=== PATIENT | female | born 1980 | race Caucasian/White ===

== ENCOUNTER 2020-11-22 11:44 | Outpatient (REF) | payer BC, SELFPAY | END 2020-11-22 11:45 | disposition home or self-care (01) | LOC: HO.HMGCLDS 11:44 | PROVIDERS: PCP Internal Medicine; Visit Provider Nurse Practitioner Family | DX: Z13.89 Encounter for screening for other disorder (principal) ==

== ENCOUNTER → 2020-11-23 08:33 | Outpatient (REF) | payer BC, SELFPAY ==
--- NOTE | 2020-11-23 08:38 | CA_ITS ---
Transthoracic Echocardiogram Patient (Last, First, Middle): Kelsey Bhagat, Gender: Female Date of : 1980 Age: 40 Procedure Date: 11/23/2020 Procedure Type: Transthoracic Echocardiogram Location: OP Height: 165.1 cm Weight: 77.57 kg BSA: 1.85 m2 Heart Rate: bpm BP: 100 / 62 mmHg Cloth Shrinking Machine Operator: TONY Referring MD: Bernie Mensah BUILDING SUPERINTENDENTCristel Symptoms: I21.4 - Non-ST elevation (NSTEMI) myocardial infarction Study Quality: Good ECG Rhythm: Sinus Conclusions: - The left ventricular systolic function is normal. The visually estimated ejection fraction is between 60-65%. - No obvious valvular pathology seen on this study. Findings Left Ventricle Normal left ventricular cavity size. There is normal left ventricular wall thickness. The left ventricular systolic function is normal. The visually estimated ejection fraction is between 60-65%. There is no evidence of regional wall motion abnormalities. Diastolic function is normal for age. Right Ventricle Normal right ventricular cavity size and systolic function. Atria Both atria are normal in size. Aortic Valve There is a normal trileaflet aortic valve. There is no aortic valve stenosis. There is no aortic valve regurgitation. Mitral Valve The mitral valve appears normal. There is trace mitral valve regurgitation. There is no mitral valve stenosis. Pulmonic Valve The pulmonic valve was not well visualized. There is trace pulmonic valve regurgitation. Tricuspid Valve Normal tricuspid valve structure. There is trace tricuspid valve regurgitation. The pulmonary artery systolic pressure is normal. Great Vessels The aortic annulus, sinuses of valsalva, asc aorta, and aortic arch are normal in size. Pericardium/Pleural There is no evidence of pericardial effusion. Prior Study Comparison No prior study available for comparison. Recommendations, Care & Conclusions No obvious valvular pathology seen on this study. Measurements 2D Linear Measurements IVSd: 0.90 0.6-0.9/0.6-1.0 cm LVIDd: 4.48 3.9-5.3/4.2-5.9 cm LVIDd Index: 2.42 2.4-3.2/2.2-3.1 cm/m2 LVIDs: 3.02 2.0-3.6 cm LVPWd: 1.05 0.7-1.1 cm Ao Root: 2.50 2.1-3.5 cm LA Diam: 3.60 2.7-3.8/3.0-4.0 cm LAIDs Index: 1.95 1.5-2.3 cm/m2 LV Mass: 183.10 67-162/88-224 g LV Mass Index: 98.97 43-95/49-115 g/m2 LVOT Diam: 2.00 3.0+(-)1.3 cm 2D Systolic Function EF 4C: 67.00 >55% EF 2C: 63.70 >55% EF BiP: 65.20 >55% Mitral Valve MV Pk E: 0.77 MV PK A: 0.73 MV Decel Time: 158.00 E/A: 1.10 E'Lateral: 10.80 E'Medial: 8.99 E/E' Med: 8.60 E/E' Lat: 7.10 PHT: 46.00 MVA PHT: 4.78 Decel [place]: 4.87 Aortic Valve AoV Pk Scotty: 1.24 AoV Pk Grad: 6.00 LVOT LVOT Pk Scotty: 1.23 LVOT Mn Scotty: 0.77 LVOT VTI: 0.27 LVOT Pk Grad: 6.00 LVOT Mn Grad: 3.00 LVOT Diam: 2.00 LVOT Area: 3.14 Diastolic Function MV Pk E: 0.77 MV Pk A: 0.73 E/A: 1.10 E'Medial: 8.99 E/E' Med: 8.60 E' Laterial: 10.80 E/E' Lat: 7.10 Tricuspid Valve TR Pk Scotty: 2.27 TR Pk Grad: 21.00 RA Press: 3.00 RVSP: 24.00 Great Vessels Aorta Ao Root-2D: 2.50 2.0-3.7 cm Ao Asc: 2.70 2.1-3.4 cm Ao Arch: 2.40 Updated in Other Vendor System with Status of Final Juan Costa MD electronically signed on 11/25/2020 5:36:26 PM with status of Final
[2020-11-23 16:37] LABS: MANUAL DIFF FLAG NO
[2020-11-23 16:39] LABS: Basophils Absolute Auto 0.1 X10*3/uL (0.0-0.2); Basophils Percent Auto 0.6 % (0-2); Eosinophils Percent Auto 0.5 % (0-4); Hematocrit 38.4 % (37-47); Hemoglobin 12.1 g/dl (12.0-16.0); Imm Gran Abs Auto 0.02 X10*3/uL (0.00-0.03); Imm Gran Pct Auto 0.2 % (0.0-0.4); Lymphocytes Absolute Auto 3.8 X10*3/uL (1.2-4.9); Mean Corpuscular HGB Conc 31.5 g/dl (31.0-35.0); Mean Corpuscular Hemoglobin 28.5 pg (27.0-33.0); Mean Corpuscular Volume 90.6 fL (80-98); Mean Platelet Volume 9.9 fL (9.4-12.3); Monocytes Absolute Auto 0.6 X10*3/uL (0.1-1.2); Monocytes Percent Auto 7.3 % (2-11); Neutrophils Absolute Auto 3.9 X10*3/uL (2.0-8.3); Neutrophils Percent Auto 46.4 % (45-73); Platelet Count 476 X10*3/uL (160-400); Red Blood Count 4.24 X10*6/uL (4.20-5.50); Red Cell Distribution Width 13.4 % (11.0-16.0); White Blood Count 8.3 X10*3/uL (4.8-10.8)
[2020-11-23 16:51] LABS: D Dimer < 200 NG/ML
[2020-11-23 17:04] LABS: Anion Gap 12 (12-20); Blood Urea Nitrogen 10 mg/dL (9-16); Calcium 9.4 mg/dL (8.4-10.2); Carbon Dioxide 22 mmol/L (22-29); Chloride 111 mmol/L (96-108); Estimated Glomerular Filt Rate > 60; Glucose Random 78 mg/dL (60-115); Potassium 4.1 mmol/l (3.3-5.1); Sodium 141 mmol/L (135-145)
== END ==
LOC: HO.CARD 08:33
PROVIDERS: Visit Provider Nurse Practitioner Family
DX: I21.4 Non-ST elevation (NSTEMI) myocardial infarction (principal); R55 Syncope and collapse; R42 Dizziness and giddiness; E78.5 Hyperlipidemia, unspecified
CPT/HCPCS: 36415; 80048; 85025; 85379; 93306

== ENCOUNTER → 2020-12-15 13:56 | Outpatient (REF) | payer BC, SELFPAY ==
--- NOTE | 2020-12-15 14:00 | ECG_ITS ---
Hook-up date: 2020-12-15 14:10:00 Duration: 44:21:00 Test Indications: syncope Medications: 47552 QRS complexes 2 Ventricular ectopics which represent <1 % of total QRS comp. 2 Supraventricular ectopics which represent <1 % of total QRS comp. * Paced QRS complexs which represent % of total QRS comp. VENTRICULAR ECTOPY 2 Isolated 0 Bigeminal Cycles 0 Couplets 0 Runs 0 Beats in Runs * Beats LONGEST at * BPM at :: -- * Beats FASTEST at * BPM at :: -- SUPRAVENTRICULAR ECTOPY 2 Isolated 0 Couplets 0 Runs 0 Beats in Runs * Beats LONGEST at * BPM at :: -- * Beats FASTEST at * BPM at :: -- HEART RATES 48 MIN at 04:38:33 2020-12-16 67 AVG 139 MAX at 14:12:11 2020-12-15 LONGEST RR 1.2880 secs at 05:42:39 2020-12-16 S-T LEVELS Channel 1 - 128 mm at 14:10:00 2020-12-15 - 128 mm at 14:10:00 2020-12-15 Channel 2 - 128 mm at 14:10:00 2020-12-15 - 128 mm at 14:10:00 2020-12-15 Channel 3 - 128 mm at 03:32:91 -- - 128 mm at 03:32:91 Basic rhythm Normal sinus rhythm No long pause or profound bradycardia No dangerous dysrhythm periods Patient did not report any symptoms in the diary Referred By: Bernie Mensah Overread By: LAZARO TOM MD
== END ==
LOC: HO.CARD 13:56
PROVIDERS: Visit Provider Nurse Practitioner Family
DX: I21.4 Non-ST elevation (NSTEMI) myocardial infarction (principal); R42 Dizziness and giddiness; R55 Syncope and collapse
CPT/HCPCS: 93225; 93226

== ENCOUNTER → 2021-05-23 09:21 | Outpatient (BNVA) | payer OTHER, SELFPAY | PROVIDERS: PCP Internal Medicine; Visit Provider Internal Medicine Cardiovascular Disease | DX: I25.10 Atherosclerotic heart disease of native coronary artery without angina pectoris (principal); R07.9 Chest pain, unspecified | CPT/HCPCS: 93005 ==

== ENCOUNTER → 2021-06-09 10:45 | Outpatient (REF) | payer OTHER, SELFPAY ==
--- NOTE | 2021-06-09 10:48 | CA_ITS ---
Acquisition Time: 2021-06-09 11:00:56 Total Exercise Time: 00:07:01 Test Indications: Chest Pain Medications: Protocol: JACK Max HR: 171 BPM 96% of Pred: 178 BPM Max BP: 128/062 mmHG Max Work Load: 8.5 METS Exercise stress test with exercise 7 min 1 sec of Buce protocol, with moderate to severe shortness of breath, no chest discomfort, without arrythmia, with normotensive response to exercise ( unable to accurate assess BP at near peak exercise), without EKG changes meeting criteria for ischemia. Echo images obtained by tech at rest and immediately post peak exercise. Definity contrast used. Breathing normalized by 6 minutes of recovery. Test reviewed with Dr Maria. Referred By: Jason Maria Overread By: Jason Maria
== END ==
LOC: HO.CARD 10:45
PROVIDERS: Visit Provider Internal Medicine Cardiovascular Disease
DX: R07.9 Chest pain, unspecified (principal)
CPT/HCPCS: 93350; Q9957

== ENCOUNTER 2021-07-05 07:48 | Outpatient (REF) | payer OTHER, SELFPAY ==
[2021-07-05 08:26] LABS: Prothrombin Time 11.4 SEC (9.9-13.0)
[2021-07-05 08:31] LABS: Hematocrit 30.1 % (37-47); Hemoglobin 8.4 g/dl (12.0-16.0); Mean Corpuscular HGB Conc 27.9 g/dl (31.0-35.0); Mean Corpuscular Hemoglobin 19.7 pg (27.0-33.0); Mean Corpuscular Volume 70.7 fL (80-98); Mean Platelet Volume 8.9 fL (9.4-12.3); Platelet Count 581 X10*3/uL (160-400); Red Blood Count 4.26 X10*6/uL (4.20-5.50); Red Cell Distribution Width 18.3 % (11.0-16.0); White Blood Count 10.1 X10*3/uL (4.8-10.8)
[2021-07-05 08:34] LABS: Anion Gap 10 (12-20); Blood Urea Nitrogen 21 mg/dL (9-16); Calcium 9.5 mg/dL (8.4-10.2); Carbon Dioxide 19 mmol/L (22-29); Chloride 114 mmol/L (96-108); Estimated Glomerular Filt Rate > 60; Glucose Random 98 mg/dL (60-115); Potassium 4.4 mmol/L (3.3-5.1); Sodium 139 mmol/L (135-145)
[2021-07-05 08:41] LABS: HCG Quantitative < 2 mIU/mL
== END 2021-07-05 07:49 | disposition home or self-care (01) ==
LOC: HO.LAB 07:48
PROVIDERS: PCP Internal Medicine; Visit Provider Internal Medicine Cardiovascular Disease
DX: R94.39 Abnormal result of other cardiovascular function study (principal)
CPT/HCPCS: 36415; 80048; 84702; 85027; 85610

== ENCOUNTER 2021-08-24 13:13 | Outpatient (REF) | payer OTHER, SELFPAY ==
[2021-08-24 14:27] LABS: MANUAL DIFF FLAG NO
[2021-08-24 15:03] LABS: Basophils Absolute Auto 0.1 X10*3/uL (0.0-0.2); Basophils Percent Auto 0.7 % (0-2); Eosinophils Absolute Auto 0.1 X10*3/uL (0.0-0.4); Eosinophils Percent Auto 0.7 % (0-4); Hematocrit 29.1 % (37-47); Hemoglobin 8.3 g/dl (12.0-16.0); Imm Gran Abs Auto 0.02 X10*3/uL (0.00-0.03); Imm Gran Pct Auto 0.2 % (0.0-0.4); Lymphocytes Absolute Auto 2.9 X10*3/uL (1.2-4.9); Lymphocytes Percent Auto 31.7 % (20-40); Mean Corpuscular HGB Conc 28.5 g/dl (31.0-35.0); Mean Corpuscular Hemoglobin 19.2 pg (27.0-33.0); Mean Corpuscular Volume 67.4 fL (80-98); Mean Platelet Volume 9.3 fL (9.4-12.3); Monocytes Absolute Auto 0.7 X10*3/uL (0.1-1.2); Monocytes Percent Auto 7.3 % (2-11); Neutrophils Absolute Auto 5.4 X10*3/uL (2.0-8.3); Neutrophils Percent Auto 59.4 % (45-73); Platelet Count 600 X10*3/uL (160-400); Red Blood Count 4.32 X10*6/uL (4.20-5.50); Red Cell Distribution Width 17.2 % (11.0-16.0)
[2021-08-24 15:13] LABS: D Dimer 289 NG/ML
[2021-08-24 15:24] LABS: Anion Gap 13 (12-20); Blood Urea Nitrogen 16 mg/dL (9-16); Calcium 9.6 mg/dL (8.4-10.2); Carbon Dioxide 17 mmol/L (22-29); Chloride 112 mmol/L (96-108); Estimated Glomerular Filt Rate > 60; Glucose Random 94 mg/dL (60-115); Potassium 4.5 mmol/L (3.3-5.1); Sodium 137 mmol/L (135-145)
[2021-08-24 15:31] LABS: B Type Natriuretic Peptide 21 pg/mL (<100)
== END 2021-08-24 13:14 | disposition home or self-care (01) ==
LOC: HO.LAB 13:13
PROVIDERS: PCP Internal Medicine; Visit Provider Nurse Practitioner Family
DX: R06.02 Shortness of breath (principal); I25.10 Atherosclerotic heart disease of native coronary artery without angina pectoris; D64.9 Anemia, unspecified; R79.89 Other specified abnormal findings of blood chemistry; Z98.890 Other specified postprocedural states
CPT/HCPCS: 36415; 80048; 83880; 85025; 85379

== ENCOUNTER 2021-08-25 11:20 | Outpatient (REF) | payer OTHER, SELFPAY ==
--- NOTE | ~2021-08-25 | CT_ITS ---
EXAMINATION: CT ANGIOGRAM OF THE CHEST WITH AND WITHOUT CONTRAST (CT PULMONARY ANGIOGRAM FOR PE) CLINICAL INFORMATION: Reason for Exam R06.02 - Shortness of breath COMPARISON: None TECHNIQUE: Prior to contrast administration, noncontrast localization images were obtained. Subsequently, multidetector volumetric imaging was performed from the thoracic inlet to below the diaphragms following the administration of 65 mL Omnipaque 350 intravenous contrast. No contrast reaction reported Sagittal, coronal, and MIP oblique sagittal reformatted images were obtained on the CT workstation, uploaded to PACS, and reviewed. This CT examination was performed using dose optimization techniques as appropriate, variously including the following: *Automated exposure control *Adjustment of mA and/or kV according to patient size (this includes techniques or standardized protocols for targeted exams where dose is matched to indication/reason for exam; i.e. extremities or head) *Use of iterative reconstruction technique Total exam dose-length product 120 mGy-cm FINDINGS: QUALITY OF STUDY/CONTRAST BOLUS: Satisfactory. PULMONARY ARTERIES: No central or segmental pulmonary emboli. THORACIC AORTA: No aneurysm or dissection. LUNG: There is no pneumothorax, airspace consolidation, groundglass opacities. The central airways are clear. There is no endobronchial lesion or bronchiectasis. PLEURA: No pleural effusion or pneumothorax. MEDIASTINUM: Normal heart size. No pericardial effusion. No hilar or mediastinal lymphadenopathy. No evidence of septal bowing or right heart strain. CHEST WALL/AXILLA: No axillary or internal mammary lymphadenopathy. OSSEOUS STRUCTURES: No acute or suspicious osseous abnormality. UPPER ABDOMEN: Incidental 1.3 cm splenule left upper quadrant. No reflux of contrast into the hepatic veins to suggest elevated right heart pressures. CT/CT angio chest PE protocol IMPRESSION: 1. No pulmonary embolism. No thoracic aortic dissection. 2. Lungs clear. No pneumothorax, infiltrate, or effusion. VTE: negative
[2021-08-25] MEDS: iohexoL 350 MG/ML 100 ML INFUS..BTL 65 ML IV (11:56)
== END 2021-08-25 11:21 | disposition home or self-care (01) ==
LOC: HO.CT 11:20
PROVIDERS: PCP Internal Medicine; Visit Provider Nurse Practitioner Family
DX: R06.02 Shortness of breath (principal); R79.89 Other specified abnormal findings of blood chemistry
CPT/HCPCS: 71275; Q9967

== ENCOUNTER 2021-09-22 12:30 | Outpatient (REF) | payer OTHER, SELFPAY ==
[2021-09-22 13:31] LABS: MANUAL DIFF FLAG NO
[2021-09-22 14:01] LABS: Basophils Percent Auto 0.4 % (0-2); Eosinophils Absolute Auto 0.1 X10*3/uL (0.0-0.4); Eosinophils Percent Auto 0.5 % (0-4); Hemoglobin 8.3 g/dl (12.0-16.0); Imm Gran Abs Auto 0.04 X10*3/uL (0.00-0.03); Imm Gran Pct Auto 0.4 % (0.0-0.4); Lymphocytes Absolute Auto 2.8 X10*3/uL (1.2-4.9); Lymphocytes Percent Auto 25.2 % (20-40); Mean Corpuscular HGB Conc 27.7 g/dl (31.0-35.0); Mean Corpuscular Hemoglobin 18.7 pg (27.0-33.0); Mean Corpuscular Volume 67.6 fL (80.0-98.0); Mean Platelet Volume 9.3 fL (9.4-12.3); Monocytes Absolute Auto 0.6 X10*3/uL (0.1-1.2); Monocytes Percent Auto 5.8 % (2-11); Neutrophils Absolute Auto 7.5 x10*3/uL (2.0-8.3); Neutrophils Percent Auto 67.7 % (45-73); Platelet Count 544 X10*3/uL (160-400); Red Blood Count 4.44 X10*6/uL (4.20-5.50); Red Cell Distribution Width 18.4 % (11.0-16.0)
== END 2021-09-22 12:31 | disposition home or self-care (01) ==
LOC: HO.LAB 12:30
PROVIDERS: PCP Internal Medicine; Visit Provider Internal Medicine Cardiovascular Disease
DX: D64.9 Anemia, unspecified (principal); R06.02 Shortness of breath; I25.10 Atherosclerotic heart disease of native coronary artery without angina pectoris; Z79.899 Other long term (current) drug therapy
CPT/HCPCS: 36415; 85025

== ENCOUNTER 2021-10-12 07:40 | Outpatient (REF) | payer OTHER, SELFPAY | END 2021-10-12 07:41 | disposition home or self-care (01) | LOC: HO.MDS 07:40 | PROVIDERS: PCP Internal Medicine; Visit Provider Internal Medicine | DX: D50.9 Iron deficiency anemia, unspecified (principal) | CPT/HCPCS: 96365; 96366; J1200; J1750; Q0163 ==

== ENCOUNTER 2021-11-24 12:35 | Outpatient (REF) | payer OTHER, SELFPAY ==
[2021-11-24 13:36] LABS: MANUAL DIFF FLAG NO
[2021-11-24 14:14] LABS: Basophils Percent Auto 0.6 % (0-2); Eosinophils Percent Auto 0.3 % (0-4); Hematocrit 39.7 % (37.0-47.0); Hemoglobin 12.4 g/dl (12.0-16.0); Imm Gran Abs Auto 0.01 X10*3/uL (0.00-0.03); Imm Gran Pct Auto 0.1 % (0.0-0.4); Lymphocytes Absolute Auto 2.1 X10*3/uL (1.2-4.9); Lymphocytes Percent Auto 29.3 % (20-40); Mean Corpuscular HGB Conc 31.2 g/dl (31.0-35.0); Mean Corpuscular Hemoglobin 25.5 pg (27.0-33.0); Mean Corpuscular Volume 81.5 fL (80.0-98.0); Mean Platelet Volume 9.6 fL (9.4-12.3); Monocytes Absolute Auto 0.4 X10*3/uL (0.1-1.2); Neutrophils Absolute Auto 4.7 x10*3/uL (2.0-8.3); Neutrophils Percent Auto 64.7 % (45-73); Platelet Count 348 X10*3/uL (160-400); Red Blood Count 4.87 X10*6/uL (4.20-5.50); White Blood Count 7.2 X10*3/uL (4.8-10.8)
[2021-11-24 14:38] LABS: Anion Gap 11 (12-20); Blood Urea Nitrogen 16 mg/dL (9-16); Calcium 9.5 mg/dL (8.4-10.2); Carbon Dioxide 19 mmol/L (22-29); Chloride 115 mmol/L (96-108); Estimated Glomerular Filt Rate > 60; Glucose Random 94 mg/dL (60-115); Potassium 4.5 mmol/L (3.3-5.1); Sodium 140 mmol/L (135-145)
[2021-11-24 14:39] LABS: B Type Natriuretic Peptide 19 pg/mL (<100)
== END 2021-11-24 12:36 | disposition home or self-care (01) ==
LOC: HO.LAB 12:35
PROVIDERS: Nurse Practitioner Family; PCP Internal Medicine; Visit Provider Internal Medicine Cardiovascular Disease
DX: R07.9 Chest pain, unspecified (principal); D64.9 Anemia, unspecified; I25.10 Atherosclerotic heart disease of native coronary artery without angina pectoris
CPT/HCPCS: 36415; 80048; 83880; 85025

== ENCOUNTER 2022-01-11 15:14 | Outpatient (REF) | payer OTHER, SELFPAY ==
[2022-01-11 17:17] LABS: Iron 72 mcg/dL (30-160)
[2022-01-11 17:31] LABS: Percent Iron Saturation 23 % (15-50); Total Iron Binding Capacity 320 mcg/dL (228-428); Unsaturated Iron Binding 248 ug/dL
[2022-01-11 17:38] LABS: Ferritin 54 ng/mL (10-250); HCG Quantitative < 2 mIU/mL
== END 2022-01-11 15:15 | disposition home or self-care (01) ==
LOC: HO.LAB 15:14
PROVIDERS: PCP Internal Medicine; Visit Provider Internal Medicine Cardiovascular Disease
DX: R06.00 Dyspnea, unspecified (principal); R94.39 Abnormal result of other cardiovascular function study; I25.2 Old myocardial infarction; Z98.890 Other specified postprocedural states
CPT/HCPCS: 36415; 82728; 83540; 84702

== ENCOUNTER 2022-04-23 19:38 | Emergency (ER) | payer OTHER, SELFPAY ==
[2022-04-23 19:58] VITALS: BP 116/71; PULSE 82; RESP 18; TEMP 37.2; O2SAT 99; BMI 28.8
--- NOTE | 2022-04-23 20:38 | ED.LOWEXIN ---
HPI - Extremity Injury (Lower) General Chief Complaint: Extremity Injury, Lower Time Seen by Provider: 04/23/22 20:37 Source: patient Mode of arrival: ambulatory History of Present Illness HPI Narrative: patient was running in a [employer] program pole the muscle of the left quad complaining of pain when she walks or flex her thighs no other injuries Related Data Home Medications Medication Instructions Recorded Confirmed polyethylene glycol 3350 17 17 g PO DAILY 11/22/20 11/24/21 gram/dose oral powder topiramate 100 mg tablet 100 mg PO BID 11/22/20 01/11/22 Previous Rx's Medication Instructions Recorded aspirin 81 mg tablet,delayed 81 mg PO DAILY 90 days #90 tabs 05/31/21 release atorvastatin 80 mg tablet 80 mg PO DAILY 90 days #90 tabs 10/13/21 cyclobenzaprine 10 mg tablet 10 mg PO Q8H #20 tabs 04/23/22 ibuprofen 600 mg tablet 600 mg PO Q6H PRN pain #30 tabs 04/23/22 Allergies Allergy/AdvReac Type Severity Reaction Status Date / Time Opioids - Morphine Analogues Allergy Severe ITCHING, Verified 01/11/22 15:32 HIVES. Review of Systems Review of Systems: Yes all other systems are reviewed and are negative PMFSH Past Medical History Medical History Dural venous sinus thrombosis Surgical History Hx of carpal tunnel repair Family History Family History Father No problems noted. Mother HTN (hypertension) Social History Social History Alcohol intake: former Patient Tobacco Use Status: Never used Tobacco Advance Directives: No Advance Directives Information Provided: Yes Physical Exam Vital Signs: Vital Signs: Last Vital Signs Temp 98.9 F 04/23/22 19:58 Pulse 82 04/23/22 19:58 Resp 18 04/23/22 19:58 BP 116/71 04/23/22 19:58 Pulse Ox 99 04/23/22 19:58 O2 Del Method 04/23/22 19:58 BMI result Body Mass Index 28.8 Const: General: healthy appearing and comfortable HEENT: Head: Yes normal to inspection Ears: hearing grossly normal bilaterally Neck: Neck: Yes full ROM and No midline deformity Resp: Effort & Inspection: normal respiratory effort Auscultation: clear to auscultation bilaterally Cardio: Rate: regular rate Rhythm: regular rhythm Heart sounds: S1 normal heart sound present and S2 normal heart sound present GI: Inspection: Yes normal to inspection Palpation (GI): Soft to palpation and nontender : General: Yes no CVA tenderness Back/Spine/Pelvis: Back: no CVA tenderness Extrem: Upper/lower leg/hip images: 1. Diffuse tenderness in left quads no swelling no muscle gap no ecchymosis able to flex thigh with pain able to stand up no neuro deficit MDM - Extremity Injury (Lower) MDM Narrative Medical decision making narrative: Patient was running to [employer] program suddenly pulled her left quads complaining of increased pain in the left front of the thigh no deformity able to ambulate but with pain no other injuries no fall Discharge Plan Discharge Clinical Impression: Quadriceps muscle strain Patient Disposition: Home, Self-Care Instructions: Muscle Strain (ED) Additional Instructions: Apply ice Pain medication and muscle relaxants advised Prescriptions: New cyclobenzaprine 10 mg tablet 10 mg PO Q8H Qty: 20 0RF ibuprofen 600 mg tablet 600 mg PO Q6H PRN (Reason: pain) Qty: 30 0RF No Action aspirin 81 mg tablet,delayed release (DR/EC) 81 mg PO DAILY 90 Days Qty: 90 1RF atorvastatin 80 mg tablet 80 mg PO DAILY 90 Days Qty: 90 3RF topiramate 100 mg tablet 100 mg PO BID polyethylene glycol 3350 17 gram/dose powder 17 g PO DAILY Stand Alone Forms: Work/School Release Interventions: ED Discharge Assessment Last Done: 04/23/22 22:58 Discharge Date/Time: 04/23/22 22:59
[2022-04-23] MEDS: Cyclobenzaprine HCl 10 MG TABLET PO (20:55)
[2022-04-23] MEDS: Ketorolac Tromethamine 60 MG/2 ML VIAL IM (20:56)
[2022-04-23] MEDS: oxyCODONE HCl Immed Release 5 MG TABLET 10 MG PO (22:30)
== END 2022-04-23 22:59 | disposition home or self-care (01) ==
PROVIDERS: Emergency Provider Internal Medicine
DX: S76.112A Strain of left quadriceps muscle, fascia and tendon, initial encounter (principal); M79.605 Pain in left leg; X58.XXXA Exposure to other specified factors, initial encounter; Y93.9 Activity, unspecified; Y92.9 Unspecified place or not applicable; Y99.9 Unspecified external cause status; Z79.899 Other long term (current) drug therapy; Z79.82 Long term (current) use of aspirin; Z87.891 Personal history of nicotine dependence
CPT/HCPCS: 96372; 99283; 99284; J1885

== ENCOUNTER 2022-07-14 21:21 | Emergency (ER) | payer OTHER, SELFPAY ==
[2022-07-14 21:23] VITALS: BP 147/77; PULSE 78; RESP 18; TEMP 35.6; O2SAT 100; BMI 29.6
--- NOTE | 2022-07-14 21:23 | ECG_ITS ---
Test Reason : CHEST PAIN Blood Pressure : / mmHG Vent. Rate : 061 BPM Atrial Rate : 061 BPM P-R Int : 136 ms QRS Dur : 092 ms QT Int : 402 ms P-R-T Axes : 050 019 039 degrees QTc Int : 404 ms Normal sinus rhythm Normal ECG No previous ECGs available Referred By: Generic ED Physician Electronically Signed By:EDWIN ALLEN
[2022-07-14 21:41] LABS: MANUAL DIFF FLAG NO
[2022-07-14 21:43] LABS: Basophils Percent Auto 0.5 % (0-2); Eosinophils Absolute Auto 0.1 X10*3/uL (0.0-0.4); Eosinophils Percent Auto 0.9 % (0-4); Hematocrit 37.8 % (37.0-47.0); Hemoglobin 12.5 g/dl (12.0-16.0); Imm Gran Abs Auto 0.01 X10*3/uL (0.00-0.03); Imm Gran Pct Auto 0.1 % (0.0-0.4); Lymphocytes Absolute Auto 3.4 X10*3/uL (1.2-4.9); Lymphocytes Percent Auto 41.1 % (20-40); Mean Corpuscular HGB Conc 33.1 g/dl (31.0-35.0); Mean Corpuscular Hemoglobin 29.1 pg (27.0-33.0); Mean Corpuscular Volume 87.9 fL (80.0-98.0); Mean Platelet Volume 8.9 fL (9.4-12.3); Monocytes Absolute Auto 0.5 X10*3/uL (0.1-1.2); Monocytes Percent Auto 6.6 % (2-11); Neutrophils Absolute Auto 4.2 x10*3/uL (2.0-8.3); Neutrophils Percent Auto 50.8 % (45-73); Platelet Count 390 X10*3/uL (160-400); Red Cell Distribution Width 13.1 % (11.0-16.0); White Blood Count 8.2 X10*3/uL (4.8-10.8)
[2022-07-14 22:03] LABS: Alanine Aminotransferase 22 U/L (0-31); Albumin Level 4.3 g/dL (3.5-5.0); Alkaline Phosphatase 58 U/L (39-117); Anion Gap 13 (12-20); Aspartate Amino Transferase 24 U/L (5-31); Bilirubin Total 0.5 mg/dL (0.0-1.0); Blood Urea Nitrogen 12 mg/dL (9-16); Calcium 8.9 mg/dL (8.4-10.2); Carbon Dioxide 20 mmol/L (22-29); Chloride 112 mmol/L (96-108); Creatinine Clr Calc Pharmacy 92.8; Estimated Glomerular Filt Rate > 60; Glucose Random 105 mg/dL (60-115); Potassium 3.6 mmol/L (3.3-5.1); Sodium 141 mmol/L (135-145); Total Protein 7.6 g/dL (6.5-8.0)
[2022-07-14 22:07] LABS: Troponin-I High Sensitivity < 3.5 ng/L (<3.5-17.0)
== END 2022-07-15 01:26 | disposition left against medical advice (07) ==
PROVIDERS: Emergency Provider Emergency Medicine; PCP Internal Medicine
DX: R07.89 Other chest pain (principal); Z79.899 Other long term (current) drug therapy
CPT/HCPCS: 36415; 80053; 84484; 85025; 93005; 99283

== ENCOUNTER → 2023-01-24 13:06 | Outpatient (BNVA) | payer OTHER, SELFPAY | PROVIDERS: PCP Internal Medicine; Referring Provider Internal Medicine; Visit Provider Internal Medicine Cardiovascular Disease | DX: I25.10 Atherosclerotic heart disease of native coronary artery without angina pectoris (principal); E78.5 Hyperlipidemia, unspecified | CPT/HCPCS: 93005 ==

== ENCOUNTER 2023-08-13 11:40 | Emergency (ER) | payer BC, SELFPAY ==
[2023-08-13] VITALS (10 sets, daily range): BP systolic 103–129; BP diastolic 60–76; PULSE 56–69; RESP 16–18; TEMP 36.6; O2SAT 99–100; BMI 30.3
--- NOTE | 2023-08-13 13:02 | ED_ITS ---
HPI - General Adult General Chief complaint: Dizziness Stated complaint: dizzy blood in eye Time Seen by Provider: 08/13/23 16:23 Source: patient Mode of arrival: ambulatory Limitations: no limitations History of Present Illness HPI narrative: Patient 43 years old with history of vertigo in the past comes in for sudden onset of dizziness started 3 days ago especially on movements of the head with nausea and vomiting vomited only once noticed subconjunctival hemorrhage in the right eye also does have history of migraine headache is much better at this time patient was little off balance but now she is much better no headache at this time no tremors no focal deficit no tinnitus Related Data Home Medications Medication Instructions Recorded Confirmed topiramate 100 mg tablet 100 mg PO BID 11/22/20 01/24/23 Previous Rx's Medication Instructions Recorded aspirin 81 mg tablet,delayed 81 mg PO DAILY 90 days #90 tabs 06/12/22 release atorvastatin 80 mg tablet 80 mg PO DAILY #90 tabs 10/10/22 meclizine 25 mg tablet 25 mg PO TID PRN dizziness #20 tabs 08/13/23 Allergies Allergy/AdvReac Type Severity Reaction Status Date / Time Opioids - Morphine Analogues Allergy Severe ITCHING, Verified 01/24/23 13:51 HIVES. Review of Systems 2 Review of Systems: Yes all other systems are reviewed and are negative PMFSH Past Medical History Medical History HLD (hyperlipidemia) Dural venous sinus thrombosis NSTEMI (non-ST elevated myocardial infarction) Surgical History Hx of cardiac cath Hx of carpal tunnel repair Family History Family History Father No problems noted. Mother HTN (hypertension) Social History Social History Alcohol intake: never Patient Tobacco Use Status: Never used Tobacco Smoked in Last 30 Days: No Use of substances other than those prescribed or required for medical reasons: No Advance Directives: No Physical Exam ED Vital Signs: Vital Signs - 24 hr 08/13/23 13:02 08/13/23 16:32 08/13/23 16:41 Temperature 97.9 F Pulse Rate 66 63 56 Respiratory Rate 16 16 Blood Pressure 129/76 103/60 120/62 Pulse Oximetry 100 99 Oxygen Delivery Method Room Air Room Air 08/13/23 16:48 08/13/23 16:49 08/13/23 16:51 Temperature 98 F Pulse Rate 62 69 62 Respiratory Rate 18 Blood Pressure 123/67 126/75 123/67 Pulse Oximetry 100 Oxygen Delivery Method Room Air 08/13/23 16:52 08/13/23 16:53 08/13/23 16:54 Temperature Pulse Rate 56 62 69 Respiratory Rate Blood Pressure 120/62 123/67 126/75 Pulse Oximetry Oxygen Delivery Method 08/13/23 18:46 Temperature Pulse Rate 58 Respiratory Rate 17 Blood Pressure 114/70 Pulse Oximetry 100 Oxygen Delivery Method Room Air BMI result Body Mass Index 30.3 Appearance: Alert. Oriented X3. No acute distress. Eyes: PERRLA, No Nystagmus mild with some conjunctival hemorrhage right eye cornea normal anterior chamber normal ENT: Pharynx normal. Oral Mucosa moist Neck: Normal inspection. Neck supple. CVS: Normal heart rate and rhythm. Pulses normal. Respiratory: No respiratory distress. Equal air entry bilateral, no wheezing/rales/rhonchi Abdomen: Soft and nontender. Bowel sounds are present, no mass palpable, no CVA tenderness Skin: Skin warm and dry. Normal skin color. Normal skin turgor. Extremities: No lower extremity edema. No calf tenderness Neuro: Oriented X 3. No motor deficit. No sensory deficit.No cerebellar signs , cranial nerves II-XII intact normal gait Course Course Course Narrative: RME performed by Carmencita Granados PA-C. Patient is a 43 year old assigned female at presenting to the emergency department with right eye irritation, dizziness, and nausea. Labs and swabs ordered. Patient placed back in the waiting room pending room availability and results. Medications Administered Discontinued Medications Generic Name Dose Route Start Last Admin Trade Name Freq PRN Reason Stop Dose Admin Meclizine HCl 50 mg 08/13/23 16:54 08/13/23 17:41 Meclizine Hcl 25 Mg Tablet PO 08/13/23 16:55 50 mg ONCE ONE Administration Medical Decision Making Differential Diagnosis Differential Diagnoses: The differential diagnosis associated with the presentation includes Benign positional vertigo/dizziness/near syncope/cardiac arrhythmia Lab Data MDM Lab Attestation statement: I reviewed the patient's lab results. 08/13/23 15:47 08/13/23 15:47 Labs: Lab Results 08/13/23 08/13/23 Range/Units 15:47 16:50 WBC 6.9 (4.8-10.8) X10*3/uL RBC 4.77 (4.20-5.50) X10*6/uL Hgb 13.5 (12.0-16.0) g/dl Hct 42.3 (37.0-47.0) % MCV 88.7 (80.0-98.0) fL MCH 28.3 (27.0-33.0) pg MCHC 31.9 (31.0-35.0) g/dl RDW 13.1 (11.0-16.0) % Plt Count 213 D (160-400) X10*3/uL MPV 10.2 (9.4-12.3) fL Immature Gran % (Auto) 0.1 (0.0-0.4) % Neut % (Auto) 49.0 (45-73) % Lymph % (Auto) 44.1 H (20-40) % [place] % (Auto) 5.2 (2-11) % Eos % (Auto) 1.0 (0-4) % Baso % (Auto) 0.6 (0-2) % Lymph # (Auto) 3.0 (1.2-4.9) X10*3/uL [place] # (Auto) 0.4 (0.1-1.2) X10*3/uL Eos # (Auto) 0.1 (0.0-0.4) X10*3/uL Baso # (Auto) 0.0 (0.0-0.2) X10*3/uL Abs Immat Gran (auto) 0.01 (0.00-0.03) X10*3/uL Absolute Neuts (auto) 3.4 (2.0-8.3) x10*3/uL Absolute Nucleated RBC 0.000 (0.0-0.012) X10*3/uL Nucleated RBC % (auto) 0.0 (0.0-0.2) /100WBC PT 11.5 (11.1-13.3) SEC INR 0.9 (0.9-1.1) APTT 26.8 (26.0-36.4) SEC Sodium 143 (135-145) mmol/L Potassium 3.9 (3.3-5.1) mmol/L Chloride 114 H (96-108) mmol/L Carbon Dioxide 18 L (22-29) mmol/L Anion Gap 15 (12-20) BUN 11 (9-16) mg/dL Creatinine 0.74 (0.5-1.4) mg/dL Estim Creat Clear Calc 102.9 Estimated GFR > 60 Random Glucose 84 (60-115) mg/dL Calcium 10.0 D (8.4-10.2) mg/dL Magnesium 2.5 (1.6-2.6) mg/dL Total Bilirubin 0.3 (0.0-1.0) mg/dL AST 27 (5-31) U/L ALT 15 (0-31) U/L Alkaline Phosphatase 79 (39-117) U/L Troponin I High Sens < 2.7 (<3.5-17.0) ng/L Total Protein 8.1 H (6.5-8.0) g/dL Albumin 4.3 (3.5-5.0) g/dL Urine Color Yellow Urine Appearance Cloudy Urine pH 7.5 (5.0-9.0) Ur Specific [place] 1.015 (1.005-1.025) Urine Protein Negative (Neg-Trace) mg/dL Urine Glucose (UA) Negative (Negative) mg/dL Urine Ketones Negative (Negative) mg/dL Urine Blood Negative (Negative) Urine Nitrite Negative (Negative) Ur Leukocyte Esterase Negative (Negative) Influenza Type A (PCR) NEGATIVE (Negative) Influenza Type B (PCR) NEGATIVE (Negative) RSV RNA Qual (PCR) NEGATIVE (Negative) SARS-CoV-2 RNA (RT-PCR) NEGATIVE (Negative) Independent Interpretation I performed an independent interpretation of an: EKG Interpretation: Normal sinus rhythm heart rate 62 beats per minute LVH number interval normal axis no acute ST with no acute ischemia Discharge Plan Discharge Clinical Impression: Benign paroxysmal positional vertigo Patient Disposition: Home, Self-Care Instructions: Benign Paroxysmal Positional Vertigo (ED) Additional Instructions: Take meclizine 1 tablet every 8 hours as needed for severe dizziness Follow-up with PCP if not better Care and cautions as advised Prescriptions: New meclizine 25 mg tablet 25 mg PO TID PRN (Reason: dizziness) Qty: 20 0RF No Action aspirin 81 mg tablet,delayed release (DR/EC) 81 mg PO DAILY 90 Days Qty: 90 3RF atorvastatin 80 mg tablet 80 mg PO DAILY Qty: 90 3RF topiramate 100 mg tablet 100 mg PO BID Interventions: ED Discharge Assessment Last Done: 08/13/23 18:46 Discharge Date/Time: 08/13/23 18:47
[2023-08-13 16:15] LABS: Alanine Aminotransferase 15 U/L (0-31); Albumin Level 4.3 g/dL (3.5-5.0); Alkaline Phosphatase 79 U/L (39-117); Anion Gap 15 (12-20); Aspartate Amino Transferase 27 U/L (5-31); Bilirubin Total 0.3 mg/dL (0.0-1.0); Blood Urea Nitrogen 11 mg/dL (9-16); Carbon Dioxide 18 mmol/L (22-29); Chloride 114 mmol/L (96-108); Creatinine Clr Calc Pharmacy 102.9; Estimated Glomerular Filt Rate > 60; Glucose Random 84 mg/dL (60-115); Magnesium 2.5 mg/dL (1.6-2.6); Potassium 3.9 mmol/L (3.3-5.1); Sodium 143 mmol/L (135-145); Total Protein 8.1 g/dL (6.5-8.0)
== END 2023-08-13 18:47 | disposition home or self-care (01) ==
PROVIDERS: Physician Assistant Medical; Emergency Provider Internal Medicine; PCP Internal Medicine
DX: H81.11 Benign paroxysmal vertigo, right ear (principal); R11.2 Nausea with vomiting, unspecified; R94.31 Abnormal electrocardiogram [ECG] [EKG]; Z20.822 Contact with and (suspected) exposure to COVID-19; Z11.52 Encounter for screening for COVID-19; Z79.899 Other long term (current) drug therapy
CPT/HCPCS: 0241U; 80053; 81003; 83735; 84484; 85025; 85610; 85730; 93005; 99283; 99285

== ENCOUNTER 2024-01-21 13:57 | Outpatient (AMB) | payer BC, SELFPAY ==
--- NOTE | 2024-01-21 14:00 | MHC.OFFVIS ---
Intake Vital Signs 01/21/24 14:01 Height 5 ft 5 in Weight 185 lb 10.067 oz BMI 30.9 BP 114/64 Blood Pressure Location Lt brachial Position Sitting Pulse 62 Pulse Source Pulse Oximeter Intake Visit Reasons: 1 year follow up Intake Note: pt its here for a 1 yr f/up/ pt states that she is doing fine. Supervisor Webbing Required: No Accompanied by: Significant Other Allergies Opioids - Morphine Analogues Allergy (Severe, Verified 01/24/23 13:51) ITCHING, HIVES. Medication List - Last Reconciled 01/21/24 by Jason Maria MD aspirin 81 mg PO DAILY 90 days famotidine 40 mg PO DAILY meclizine 25 mg PO TID PRN rosuvastatin 40 mg PO DAILY topiramate 100 mg PO BID venlafaxine ER mg PO HPI HPI Comments History of Present Illness Details Background: She was seen at [facility] when she presented with transient inferior ST elevations with burning chest discomfort. She was taken for cardiac catheterization which showed haziness in mid to distal left circumflex artery. This was imaged with the OCT showing clot in the vessel without clear evidence of dissection or plaque rupture. She was treated medically with heparin drip aspirin and Brilinta. She again had some sharp left-sided chest discomfort at home as well as a dull ache in the left side of her chest. She was admitted to [facility] and had a CT chest to rule out pulmonary embolism. She was discharged and came back for routine follow-up which was setup before. She has a background of asthma and has been experiencing more shortness of breath with exertion. She also gets dyspnea at rest. 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 She was sent for stress echo. She achieved 10.4 metabolic equivalents on treadmill without any EKG changes or chest discomfort. Stress echo did not show any wall motion abnormalities and showed normal augmentation of LV function. She called us in between that she was and her medications including metoprolol and Plavix were discontinued. Unfortunately she had a miscarriage in 11/2020. She has background of dural thrombosis but that was in the setting of control medications. She came back for follow-up and was complaining of shortness of breath and chest tightness. We decided to do an exercise stress test on her. She was also sent for some blood workup. She was able to exercise for 8.5 metabolic equivalents and stopped due to moderate to severe shortness of breath and no chest discomfort. Stress echo images were did not show any regional wall motion abnormalities. Her blood workup showed anemia and she was referred to hematology for further workup. It appears she was given ferrous sulfate but she did not tolerate it. She was seen by Hematology and then received IV iron. She is returning now for follow-up. She continued to have chest discomfort despite treatment of anemia. After discussion she was taken back for cardiac catheterization. This showed healed area of plaque erosion/dissection in the left circumflex without any significant obstructive disease. On follow-up today she is doing well. She has no chest discomfort shortness breath appeared occasionally she feels some palpitations. Taking medications regularly. 01/21/24: She returns for follow-up. She is denying any chest pain or shortness of breath. She has hemorrhoids and will be undergoing endoscopy at [facility] in March 2024. She is on baby aspirin. She was changed to rosuvastatin by her primary care physician. She is saying that she is taking aspirin and rosuvastatin currently. [facility] Medical History HLD (hyperlipidemia) Dural venous sinus thrombosis NSTEMI (non-ST elevated myocardial infarction) Surgical History Hx of cardiac cath Hx of carpal tunnel repair Family History Father No problems noted. Mother HTN (hypertension) Social History Alcohol intake: never Patient Tobacco Use Status: Never used Tobacco Review of Systems Const Denies chills, Denies fatigue, Denies fever(s), Denies frequent falls, Denies weakness, Denies weight gain and Denies weight loss ENT Denies dizziness Card Denies chest pain, Denies leg edema, Denies lightheadedness, Denies palpitations, Denies dyspnea and Denies dyspnea on exertion Resp Denies cough, Denies dyspnea and Denies dyspnea on exertion GI Denies hematochezia Musc Denies abnormal gait, Denies muscle weakness, Denies numbness, Denies radiating pain into limb and Denies tingling Neuro Denies abnormal gait, Denies dizziness, Denies frequent falls, Denies numbness, Denies tingling and Denies weakness Endo Denies fatigue and Denies palpitations Physical Exam Vital Signs: Last Vital Signs Pulse 62 01/21/24 14:01 BP 114/64 01/21/24 14:01 BMI result Body Mass Index 30.9 GENERAL APPEARANCE: in no acute distress, pleasant. NECK: no carotid bruit, no jugular venous distention. SKIN: no suspicious lesions, warm and dry. HEART: no murmurs, regular rate and rhythm. LUNGS: clear to auscultation bilaterally. ABDOMEN: soft, nontender. EXTREMITIES: no edema. PERIPHERAL PULSES: equal. NEUROLOGIC: No gross deficits, AAO X 3 Assessment & Plan Assessment & Plan (1) HLD (hyperlipidemia): Comment: Stable Code(s): E78.5 - Hyperlipidemia, unspecified Qualifiers: Hyperlipidemia type: unspecified Qualified Code(s): E78.5 - Hyperlipidemia, unspecified (2) Coronary artery disease: Code(s): I25.10 - Atherosclerotic heart disease of [place] coronary artery without angina pectoris Qualifiers: Coronary Disease-Associated Artery/Lesion type: [place] artery [place] vs. transplanted heart: [place] heart Associated angina: without angina Qualified Code(s): I25.10 - Atherosclerotic heart disease of [place] coronary artery without angina pectoris Plan [age] year female who is here for follow-up. She had transient ST elevations and was taken for cardiac catheterization in the past which showed thrombus in the left circumflex artery with differential of plaque erosion versus dissection. We could not image the vessel well and given the fact that there was good flow through the vessel we decided to medically treat the patient. She did well with this approach. She had repeat angiography few years later which showed no significant plaque or stenosis in the coronary arteries. She has done well clinically also. She has rectal bleeding and she will need endoscopy. She is intermediate risk for perioperative complications. She will stay on aspirin lifelong. Thank you for allowing me to participate in the care of your patient. Please feel free to contact me if you have any questions. Coding Level of Care Code Est Pt Level 4 (68300) Diagnoses Hyperlipidemia, unspecified hyperlipidemia type E78.5 Hyperlipidemia type: unspecified Coronary artery disease involving [place] coronary artery of [place] heart without angina pectoris I25.10 Coronary Disease-Associated Artery/Lesion type: [place] artery [place] vs. transplanted heart: [place] heart Associated angina: without angina
[2024-01-21 14:01] VITALS: BP 114/64; PULSE 62; BMI 30.9
== END 2024-01-21 14:36 | disposition home or self-care (01) ==
PROVIDERS: Visit Provider Internal Medicine Cardiovascular Disease
DX: E78.5 Hyperlipidemia, unspecified (principal); I25.10 Atherosclerotic heart disease of native coronary artery without angina pectoris
CPT/HCPCS: 99214

== ENCOUNTER → 2024-01-21 13:57 | Outpatient (BNVA) | payer OTHER, SELFPAY | PROVIDERS: Visit Provider Internal Medicine Cardiovascular Disease ==

== ENCOUNTER 2024-01-29 18:04 | Emergency (ER) | payer OTHER, SELFPAY ==
[2024-01-29 18:08] VITALS: BP 125/89; PULSE 108; O2SAT 95
[2024-01-29 18:27] VITALS: BP 139/85; PULSE 110; RESP 16; TEMP 36.6; O2SAT 100; BMI 25.3
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
[2024-01-29] MEDS: Diphth,Pertus(ACell),Tet Adult 0.5 ML SYRINGE IM (19:25)
[2024-01-29 19:47] VITALS: BP 130/80; PULSE 100; RESP 18; TEMP 36.7; O2SAT 100
== END 2024-01-29 19:48 | disposition home or self-care (01) ==
PROVIDERS: Emergency Provider Emergency Medicine Emergency Medical Services; PCP Internal Medicine
DX: S61.051A Open bite of right thumb without damage to nail, initial encounter (principal); S50.811A Abrasion of right forearm, initial encounter; M79.641 Pain in right hand; M79.631 Pain in right forearm; Y04.1XXA Assault by human bite, initial encounter; Y93.9 Activity, unspecified; Y92.9 Unspecified place or not applicable; Y99.8 Other external cause status; Z23 Encounter for immunization
CPT/HCPCS: 90471; 90715; 99282; 99284

== ENCOUNTER 2024-05-06 16:57 | Emergency (ER) | payer OTHER, BC, SELFPAY ==
--- NOTE | ~2024-05-06 | CT_ITS ---
CT HEAD WITHOUT IV CONTRAST CT CERVICAL SPINE WITHOUT IV CONTRAST CT MAXILLOFACIAL WITHOUT IV CONTRAST INDICATION: Head trauma COMPARISON: None TECHNIQUE: Multidetector CT acquisitions of the head, maxillofacial region, and cervical spine were obtained without IV contrast. Multiplanar reformats were acquired and utilized for image interpretation. DLP: 645, 408, 321 mGy-cm FINDINGS: HEAD: There is no intracranial hemorrhage or extra-axial fluid collection. The ventricles are unremarkable without hydrocephalus. No midline shift or mass effect. Parker to white matter differentiation is diffusely maintained without evidence of an evolved acute territorial infarct. The basilar cisterns are preserved. Subcortical and periventricular white matter hypoattenuation is suggestive of [] small vessel ischemic disease. No soft tissue or osseous abnormality. The mastoid air cells and paranasal sinuses are well-aerated. MAXILLOFACIAL: The mandible, maxilla, pterygoid plates, nasal bones, zygomatic arches, paranasal sinus sherwood, and bony orbits are intact. No acute osseous abnormality within the maxillofacial region. The paranasal sinuses and mastoid air cells remain well-aerated. The globes and extra-ocular musculature is intact. No significant soft tissue findings. CERVICAL SPINE: There is anatomic alignment of the vertebral bodies and posterior elements. There is no acute fracture and there is no acute subluxation. The craniocervical and atlantoaxial articulations are normal. There is no prevertebral soft tissue swelling. No significant soft tissue abnormality within the neck. The visualized lung apices are clear. CT/CT cervical spine wo IV con IMPRESSION: 1. No acute intracranial abnormality. 2. No acute osseous abnormality within the cervical spine. 3. No acute osseous abnormality within the maxillofacial region.
--- NOTE | ~2024-05-06 | CT_ITS ---
CT HEAD WITHOUT IV CONTRAST CT CERVICAL SPINE WITHOUT IV CONTRAST CT MAXILLOFACIAL WITHOUT IV CONTRAST INDICATION: Head trauma COMPARISON: None TECHNIQUE: Multidetector CT acquisitions of the head, maxillofacial region, and cervical spine were obtained without IV contrast. Multiplanar reformats were acquired and utilized for image interpretation. DLP: 645, 408, 321 mGy-cm FINDINGS: HEAD: There is no intracranial hemorrhage or extra-axial fluid collection. The ventricles are unremarkable without hydrocephalus. No midline shift or mass effect. Parker to white matter differentiation is diffusely maintained without evidence of an evolved acute territorial infarct. The basilar cisterns are preserved. Subcortical and periventricular white matter hypoattenuation is suggestive of [] small vessel ischemic disease. No soft tissue or osseous abnormality. The mastoid air cells and paranasal sinuses are well-aerated. MAXILLOFACIAL: The mandible, maxilla, pterygoid plates, nasal bones, zygomatic arches, paranasal sinus sherwood, and bony orbits are intact. No acute osseous abnormality within the maxillofacial region. The paranasal sinuses and mastoid air cells remain well-aerated. The globes and extra-ocular musculature is intact. No significant soft tissue findings. CERVICAL SPINE: There is anatomic alignment of the vertebral bodies and posterior elements. There is no acute fracture and there is no acute subluxation. The craniocervical and atlantoaxial articulations are normal. There is no prevertebral soft tissue swelling. No significant soft tissue abnormality within the neck. The visualized lung apices are clear. CT/CT facial bones wo IV con IMPRESSION: 1. No acute intracranial abnormality. 2. No acute osseous abnormality within the cervical spine. 3. No acute osseous abnormality within the maxillofacial region.
--- NOTE | ~2024-05-06 | CT_ITS ---
CT HEAD WITHOUT IV CONTRAST CT CERVICAL SPINE WITHOUT IV CONTRAST CT MAXILLOFACIAL WITHOUT IV CONTRAST INDICATION: Head trauma COMPARISON: None TECHNIQUE: Multidetector CT acquisitions of the head, maxillofacial region, and cervical spine were obtained without IV contrast. Multiplanar reformats were acquired and utilized for image interpretation. DLP: 645, 408, 321 mGy-cm FINDINGS: HEAD: There is no intracranial hemorrhage or extra-axial fluid collection. The ventricles are unremarkable without hydrocephalus. No midline shift or mass effect. Parker to white matter differentiation is diffusely maintained without evidence of an evolved acute territorial infarct. The basilar cisterns are preserved. Subcortical and periventricular white matter hypoattenuation is suggestive of [] small vessel ischemic disease. No soft tissue or osseous abnormality. The mastoid air cells and paranasal sinuses are well-aerated. MAXILLOFACIAL: The mandible, maxilla, pterygoid plates, nasal bones, zygomatic arches, paranasal sinus sherwood, and bony orbits are intact. No acute osseous abnormality within the maxillofacial region. The paranasal sinuses and mastoid air cells remain well-aerated. The globes and extra-ocular musculature is intact. No significant soft tissue findings. CERVICAL SPINE: There is anatomic alignment of the vertebral bodies and posterior elements. There is no acute fracture and there is no acute subluxation. The craniocervical and atlantoaxial articulations are normal. There is no prevertebral soft tissue swelling. No significant soft tissue abnormality within the neck. The visualized lung apices are clear. CT/CT head/brain wo IV con IMPRESSION: 1. No acute intracranial abnormality. 2. No acute osseous abnormality within the cervical spine. 3. No acute osseous abnormality within the maxillofacial region.
[2024-05-06 17:02] VITALS: BP 126/77; PULSE 80; O2SAT 100
[2024-05-06 17:52] VITALS: BP 110/72; PULSE 76; RESP 18; TEMP 36.5; O2SAT 99; BMI 31.5
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
[2024-05-06 18:32] LABS: UPreg QC Valid YES; Urine Pregnancy NEGATIVE (NEGATIVE)
[2024-05-06 19:57] VITALS: BP 119/71; PULSE 67; RESP 18; TEMP 36.4; O2SAT 100
[2024-05-06 20:00] VITALS: BP 119/71; PULSE 67; RESP 18; TEMP 36.4; O2SAT 100
== END 2024-05-06 20:05 | disposition home or self-care (01) ==
PROVIDERS: Registered Nurse Emergency; Emergency Provider Internal Medicine; PCP Internal Medicine
DX: S09.90XA Unspecified injury of head, initial encounter (principal); W50.0XXA Accidental hit or strike by another person, initial encounter; Y93.89 Activity, other specified; Y92.9 Unspecified place or not applicable; Y99.0 Civilian activity done for income or pay; R51.9 Headache, unspecified; M54.2 Cervicalgia
CPT/HCPCS: 70450; 70486; 72125; 81025; 99283; 99284

== ENCOUNTER 2024-09-24 21:46 | Emergency (ER) | payer BC, SELFPAY ==
--- NOTE | 2024-09-24 | ECG_ITS ---
Test Reason : CP Blood Pressure : / mmHG Vent. Rate : 096 BPM Atrial Rate : 096 BPM P-R Int : 142 ms QRS Dur : 078 ms QT Int : 342 ms P-R-T Axes : 069 042 028 degrees QTc Int : 432 ms Normal sinus rhythm Possible Left atrial enlargement Borderline ECG When compared with ECG of 13-AUG-2023 13:12, Vent. rate has increased BY 34 BPM Referred By: Generic ED Physician Electronically Signed By:LAZARO TOM MD
[2024-09-24 21:51] VITALS: BP 123/74; BP 130/91; PULSE 90; PULSE 93; RESP 20; TEMP 36.6; O2SAT 98; BMI 26.6
--- NOTE | 2024-09-24 22:02 | PC.NURSE ---
pt biba from work, pt a&ox4, pt noted to be having PVCs on tele 89-. vss. pt reports 5/10 chest pain with pressure starting 30 mins ago radiating down L arm. pt reports history of IA/CVA, and that current pain feel 'similar' to last IA. ems administered 4 baby aspirin. pt reports pain 2/10 at this time. ekg obtained at this time. iv attempt x2 2nd RN at bedside to attempt. labs obtained.
[2024-09-24 22:05] LABS: MANUAL DIFF FLAG NO
[2024-09-24 22:06] LABS: Basophils Percent Auto 0.2 % (0-2); Eosinophils Percent Auto 0.1 % (0-4); Hematocrit 38.6 % (37.0-47.0); Hemoglobin 13.1 g/dl (12.0-16.0); Imm Gran Abs Auto 0.02 X10*3/uL (0.00-0.03); Imm Gran Pct Auto 0.2 % (0.0-0.4); Lymphocytes Absolute Auto 2.2 X10*3/uL (1.2-4.9); Lymphocytes Percent Auto 24.4 % (20-40); Mean Corpuscular HGB Conc 33.9 g/dl (31.0-35.0); Mean Corpuscular Hemoglobin 28.7 pg (27.0-33.0); Mean Corpuscular Volume 84.6 fL (80.0-98.0); Mean Platelet Volume 10.1 fL (9.4-12.3); Monocytes Absolute Auto 0.6 X10*3/uL (0.1-1.2); Monocytes Percent Auto 6.9 % (2-11); Neutrophils Percent Auto 68.2 % (45-73); Platelet Count 324 X10*3/uL (160-400); Red Blood Count 4.56 X10*6/uL (4.20-5.50); Red Cell Distribution Width 14.4 % (11.0-16.0); White Blood Count 8.8 X10*3/uL (4.8-10.8)
[2024-09-24 22:20] VITALS: PULSE 93
[2024-09-24 22:24] LABS: Alanine Aminotransferase 16 U/L (0-31); Albumin Level 4.3 g/dL (3.5-5.0); Alkaline Phosphatase 90 U/L (39-117); Anion Gap 16 (12-20); Aspartate Amino Transferase 30 U/L (5-31); Bilirubin Total 0.5 mg/dL (0.0-1.0); Blood Urea Nitrogen 8 mg/dL (9-16); Carbon Dioxide 16 mmol/L (22-29); Chloride 114 mmol/L (96-108); Creatinine Clr Calc Pharmacy 95.7; Estimated Glomerular Filt Rate > 60; Glucose Random 80 mg/dL (60-115); Potassium 3.5 mmol/L (3.3-5.1); Sodium 142 mmol/L (135-145); Total Protein 7.9 g/dL (6.5-8.0)
[2024-09-24 23:56] VITALS: BP 111/75; PULSE 83; RESP 14; TEMP 36.8; O2SAT 99
--- NOTE | 2024-09-25 00:12 | MHC.EDTECH ---
This tech took over care of patient at 2300,rounded and introduced self to pt,vitals taken,repeat lab drawn and sent to lab, at bedside,recliner given to him for comfort,call nassar within reach
[2024-09-25 00:34] LABS: Troponin-I High Sensitivity 3.7 ng/L (<3.5-17.0)
--- NOTE | 2024-09-25 00:45 | ED.CHESTPAIN ---
HPI - Chest Pain General Chief Complaint: Chest Pain Stated Complaint: chest pain, hx, MT, 12 lead non diagnostic Time Seen by Provider: 09/25/24 00:45 History of Present Illness ED Provider: Rosanna BILLINGS narrative: The patient is a 44-year-old woman with a history of hyperlipidemia and a history of an NSTEMI in 2019. She was treated medically. In December of 2021 she had a diagnostic cardiac catheterization because of symptoms of possible angina. The cardiac catheterization the patient had at that time was quite good. It showed no significant coronary artery disease. It was recommended that she continue 81 mg of aspirin daily indefinitely. The patient comes to the emergency room by ambulance tonight from work after she experienced palpitations and a sense of discomfort in her left shoulder radiating down the left arm. She says that the symptoms were somewhat reminiscent of the episode she had in 2019 but not as severe. She says that in 2019 she had pain that made her think that her ribs or chest has been broken. She did not have that kind of discomfort this evening. No pain or swelling in her legs. She says that she feels a lot of palpitations. No fever, sweats, chills. Related Data Home Medications ?Medication ?Instructions ?Recorded ?Confirmed topiramate 100 mg tablet 100 mg PO BID 11/22/20 01/21/24 famotidine 40 mg tablet 40 mg PO DAILY 01/21/24 01/21/24 rosuvastatin 40 mg tablet 40 mg PO DAILY 01/21/24 01/21/24 venlafaxine 75 mg capsule,extended mg PO 01/21/24 01/21/24 release 24 hr Previous Rx's ?Medication ?Instructions ?Recorded aspirin 81 mg tablet,delayed 81 mg PO DAILY 90 days #90 tabs 06/12/22 release meclizine 25 mg tablet 25 mg PO TID PRN dizziness #20 tabs 08/13/23 amoxicillin 875 mg-potassium 1 tab PO Q12H 10 days #20 tabs 01/29/24 clavulanate 125 mg tablet cyclobenzaprine 5 mg tablet 5 mg PO TID PRN muscle spasm #10 05/06/24 tabs Allergies Allergy/AdvReac Type Severity Reaction Status Date / Time Opioids - Morphine Analogues Allergy Severe ITCHING, Verified 09/24/24 21:57 HIVES. Review of Systems Review of Systems: Yes all other systems are reviewed and are negative [facility] Past Medical History Medical History HLD (hyperlipidemia) Dural venous sinus thrombosis NSTEMI (non-ST elevated myocardial infarction) Surgical History Hx of cardiac cath Hx of carpal tunnel repair Family History Family History Father No problems noted. Mother HTN (hypertension) Social History Social History Alcohol intake: never Patient Tobacco Use Status: Never used Tobacco Smoked in Last 30 Days: No Use of substances other than those prescribed or required for medical reasons: No Advance Directives: No Advance Directives Information Provided: No Do you have a plan to hurt others: No Plan Patient : No Physical Exam Vital Signs: Vital Signs: Last Vital Signs Temp 97.8 F 09/25/24 01:59 Pulse 88 09/25/24 01:59 Resp 22 H 09/25/24 01:59 BP 115/72 09/25/24 01:59 Pulse Ox 98 09/25/24 01:59 O2 Del Method Room Air 09/25/24 01:59 BMI result Body Mass Index 26.6 Const: Other: The patient is awake and alert, pleasant and cooperative. She appeared apprehensive but not in overt distress. HEENT: Head: Yes normal to inspection Face and sinus: Yes normal facial exam Mouth: Normal oral and palatal mucosa present and moist mucous membranes Eyes: General: appearance normal, both eyes and all related structures Neck: Neck: Yes full ROM and Yes no JVD Resp: Effort & Inspection: normal respiratory effort Auscultation: clear to auscultation bilaterally Cardio: Rate: regular rate Rhythm: regular rhythm Heart sounds: S1 normal heart sound present and S2 normal heart sound present GI: Other: Abdomen is soft and nontender Skin: Other: Skin is dry and unremarkable General skin exam: no rashes or lesions noted Neuro: Other: The patient is awake, alert, pleasant, cooperative. She seems somewhat anxious and apprehensive but otherwise has a normal mental status. Cranial nerves are grossly intact. She moves her extremities normally and appropriately. Extrem: Other: No peripheral edema. No calf swelling or tenderness Medical Decision Making Medical Decision Making MDM Narrative: The patient is a 44-year-old woman presents to the emergency department with a complaint of palpitations and left shoulder and arm discomfort. She has a history of an NSTEMI in 2018 which was managed medically and which may have been related to coronary artery dissection. In December 2021 she had a diagnostic cardiac catheterization that did not show any significant coronary artery disease. It seemed as though the lesion that she had had in 2019 had healed. She was brought to the hospital today from her work place where she had complained of palpitations and chest discomfort. In the emergency room on a equipment monitor phototypesetting she had episodes of frequent PVCs. These seemed to be correlating with her complaint of palpitations. Her chest x-ray does not show any definite acute ischemic changes. Her troponins are flat. My overall impression is that she likely was having significant discomfort from frequent PVCs. I doubt she is having another acute coronary syndrome. Additionally I do not feel she is describing symptoms consistent with a pulmonary embolism and she is PERC negative.. The patient seemed stable. I felt she was well enough to be discharged to follow up with her manager behavioral. She should return if worse. Lab Data 09/24/24 22:01 09/24/24 22:01 Labs: Lab Results 09/24/24 09/25/24 Range/Units 22:01 00:11 WBC 8.8 (4.8-10.8) X10*3/uL RBC 4.56 (4.20-5.50) X10*6/uL Hgb 13.1 (12.0-16.0) g/dl Hct 38.6 (37.0-47.0) % MCV 84.6 (80.0-98.0) fL MCH 28.7 (27.0-33.0) pg MCHC 33.9 (31.0-35.0) g/dl RDW 14.4 (11.0-16.0) % Plt Count 324 D (160-400) X10*3/uL MPV 10.1 (9.4-12.3) fL Immature Gran % (Auto) 0.2 (0.0-0.4) % Neut % (Auto) 68.2 (45-73) % Lymph % (Auto) 24.4 (20-40) % [place] % (Auto) 6.9 (2-11) % Eos % (Auto) 0.1 (0-4) % Baso % (Auto) 0.2 (0-2) % Lymph # (Auto) 2.2 (1.2-4.9) X10*3/uL [place] # (Auto) 0.6 (0.1-1.2) X10*3/uL Eos # (Auto) 0.0 (0.0-0.4) X10*3/uL Baso # (Auto) 0.0 (0.0-0.2) X10*3/uL Abs Immat Gran (auto) 0.02 (0.00-0.03) X10*3/uL Absolute Neuts (auto) 6.0 (2.0-8.3) x10*3/uL Absolute Nucleated RBC 0.000 (0.0-0.012) X10*3/uL Nucleated RBC % (auto) 0.0 (0.0-0.2) /100WBC Sodium 142 (135-145) mmol/L Potassium 3.5 (3.3-5.1) mmol/L Chloride 114 H (96-108) mmol/L Carbon Dioxide 16 L (22-29) mmol/L Anion Gap 16 (12-20) BUN 8 L (9-16) mg/dL Creatinine 0.74 (0.5-1.4) mg/dL Estim Creat Clear Calc 95.7 Estimated GFR > 60 Random Glucose 80 (60-115) mg/dL Calcium 10.0 (8.4-10.2) mg/dL Total Bilirubin 0.5 (0.0-1.0) mg/dL AST 30 (5-31) U/L ALT 16 (0-31) U/L Alkaline Phosphatase 90 (39-117) U/L Troponin I High Sens 3.0 3.7 (<3.5-17.0) ng/L Total Protein 7.9 (6.5-8.0) g/dL Albumin 4.3 (3.5-5.0) g/dL Discharge Plan Discharge Clinical Impression: Chest discomfort, Frequent PVCs Patient Disposition: Home, Self-Care Additional Instructions: Your testing in the emergency room today seems reassuring. There is no sign of a heart attack. On the equipment monitor phototypesetting it was apparent you were having a lot of frequent premature beats. These seemed to be premature ventricular complexes, also called PVCs. These can be very uncomfortable to experience but they are not dangerous nor did they indicate a dangerous process. That can be related to stress. Please rest and take it easy. Continue your regular medications. Please contact your manager behavioral tomorrow morning to make a follow up appointment to discuss these symptoms further. Return to the emergency room if significantly worse. Prescriptions: No Action aspirin 81 mg tablet,delayed release (DR/EC) 81 mg PO DAILY 90 Days Qty: 90 3RF meclizine 25 mg tablet 25 mg PO TID PRN (Reason: dizziness) Qty: 20 0RF cyclobenzaprine 5 mg tablet 5 mg PO TID PRN (Reason: muscle spasm) Qty: 10 0RF amoxicillin-pot clavulanate 875-125 mg tablet 1 tab PO Q12H 10 Days Qty: 20 0RF topiramate 100 mg tablet 100 mg PO BID venlafaxine 75 mg capsule,extended release 24hr PO famotidine 40 mg tablet 40 mg PO DAILY rosuvastatin 40 mg tablet 40 mg PO DAILY Referrals: Emmanuel Mccallum MD [Primary Care Provider] - (Frequent PVCs) Jason Maria MD [Physician] - (frequent PVCs) Stand Alone Forms: Work/School Release Interventions: ED Discharge Assessment Last Done: 09/25/24 01:59 Discharge Date/Time: 09/25/24 02:00 Print Language: Arabic
[2024-09-25 01:59] VITALS: BP 115/72; PULSE 88; RESP 22; TEMP 36.6; O2SAT 98
== END 2024-09-25 02:00 | disposition home or self-care (01) ==
PROVIDERS: Emergency Provider Emergency Medicine; PCP Internal Medicine
DX: R07.89 Other chest pain (principal); I49.3 Ventricular premature depolarization; E78.5 Hyperlipidemia, unspecified; Z79.82 Long term (current) use of aspirin; Z79.02 Long term (current) use of antithrombotics/antiplatelets; Z79.899 Other long term (current) drug therapy
CPT/HCPCS: 36415; 80053; 84484; 85025; 93005; 99283; 99285

== ENCOUNTER → 2024-09-24 21:52 | Outpatient (BNV) | payer BC, SELFPAY | PROVIDERS: Emergency Provider Emergency Medicine; PCP Internal Medicine; Visit Provider Internal Medicine Cardiovascular Disease | DX: R07.9 Chest pain, unspecified (principal) | CPT/HCPCS: 93010 ==

== ENCOUNTER → 2024-10-10 09:19 | Outpatient (REF) | payer BC, SELFPAY ==
--- NOTE | 2024-10-10 09:21 | HM_ITS ---
* Total monitoring time 3 days. * Underlying rhythm is sinus with an average rate of 85/Min. * Ventricular ectopy with noted with a burden of 0.75%. Isolated beats. * Rare supraventricular ectopy. * No significant pauses or high-grade AV blocks. MTDD
--- OUTSIDE RECORDS SUMMARY | 2024-10-15 06:53 | XMS_ITS ---
Author Organization [facility] [place] [address] Care Team Providers Care Cafe Lead Name Role Phone IMELDA RENNER Unavailable [phone] ALLERGIES Allergen (clinical drug ingredient) Drug/Non Drug Allergy documented on EMR Reaction Allergy Type Onset Date Status morphine Morphine anaphylaxis Drug Allergy Activ e REASON FOR VISIT Pt seen in office for wt mgt f/u visit with [facility]. MEDICATIONS Medication SIG (Take, Route, Fr equency, Duration) Notes Start Date End Date Status Zepbound 2.5 MG/0.5ML 2.5 mg weekly Subc utaneous Weekly for 30 days Active Topiramate 100 MG 1 tablet Orally Once a day Active Aspirin 81 81 MG 1 tablet Orally Once a day Active Venlafaxine HCl 75 MG 1 tablet with food Orally Once a day Active Famotidine 40 MG as directed Orally Active Zepbound 5 MG/0.5ML 5mg Subcutaneous wee kly for 30 days Active PROBLEMS Problem Type ICD Code Onset Dates Problem Status W/U Status Risk SNOMED Code Notes Problem Overweight (E66.3) Active confirmed Overweight (110686735) Problem Past myocardial infarction (I25.2) Active confirmed Old myocardial infarction (4774848) VITAL SIGNS Heart Rate 82 /min 09/26/2024 Blood pressure systolic 124 mm Hg 09/26/20 24 Blood pressure diastolic 80 mm Hg 024 Weight 149 lbs 09/26/2024 BMI 25.57 kg/m2 09/26/2024 Height 64 in 09/26/2024 Oximetry 99 % 09/26/2024 Encounters Encounter Location Date Provider Diagnosis [address] [facility] [address] [facility] [address] [place] [address] 09/26/2024 IMELDA RENNER Overweight E66.3 ; B GA 25.0-25.9,adult Z68.25 ; Dietary counseling and surveillance Z71.3 ; Other hyperlipidemia E78.49 ; Past myocardial infarction I25.2 and Migraine without status migrainosus, not intractable, unspecified migraine type G43.909 ASSESSMENTS Encounter Date Diagnosis Assessment Notes Treatment Notes Treatment Clinical Notes Section Notes 09/26/2024 Overweight (ICD-10 - E66.3) #Weight Management 09/26/2024 thriving track down echo report from cont 5mg Zbound Total time spent today was 30 minutes of which greater than 50% was spent on coordinating and counseling Patient has been found to be overweight with a BMI of (25). Patient has overweight class per BMI standards We are a board certified obesity and weight management practice Patient has trialed behavioral modification, dietary restrictions and exercise for a minimum of 6 months The most recent [place] [employer] of clinical endocrinologists and [place] [employer] guidelines recommend patients who have overweight BMI or obesity BMI, who also have metabolic syndrome, prediabetes, HLD, and other comorbidities or at risk of developing type 2 diabetes should aim for a weight loss goal of at least 10% of the baseline body weight Patient counseled regarding effects of GLP/GIP-1 agonists, and other FDA approved wgt loss meds with regards to a multifactorial approach of weight loss as mentioned above and not solely appetite suppression. Of note, some information is being carried forward from prior records for informational purposes only and is being cited so that efficiency, safety and quality of the patient's care is not compromised This note was prepared using voice recognition software and direct typing Please excuse inadvertent housekeeping department worker or typing errors, or uncorrected word substitutions Although every attempt has been made by the provider to proofread this document, occasional misspellings and typographical errors may still be present Due to the previous pandemic, and the use of personal protective equipment (PPE) This may decrease voice recognition accuracy Inadvertent housekeeping department worker errors may occur 09/26/2024 BMI 25.0-25.9,adult (ICD-10 - Z68.25) #Weight Management 09/26/2024 thriving track down echo report from HH cont 5mg Zbound Total time spent today was 30 minutes of which greater than 50% was spent on coordinating and counseling Patient has been found to be overweight with a BMI of (25). Patient has overweight class per BMI standards We are a board certified obesity and weight management practice Patient has trialed behavioral modification, dietary restrictions and exercise for a minimum of 6 months The most recent [place] [employer] of clinical endocrinologists and [place] [employer] guidelines recommend patients who have overweight BMI or obesity BMI, who also have metabolic syndrome, prediabetes, HLD, and other comorbidities or at risk of developing type 2 diabetes should aim for a weight loss goal of at least 10% of the baseline body weight Patient counseled regarding effects of GLP/GIP-1 agonists, and other FDA approved wgt loss meds with regards to a multifactorial approach of weight loss as mentioned above and not solely appetite suppression. Of note, some information is being carried forward from prior records for informational purposes only and is being cited so that efficiency, safety and quality of the patient's care is not compromised This note was prepared using voice recognition software and direct typing Please excuse inadvertent housekeeping department worker or typing errors, or uncorrected word substitutions Although every attempt has been made by the provider to proofread this document, occasional misspellings and typographical errors may still be present Due to the previous pandemic, and the use of personal protective equipment (PPE) This may decrease voice recognition accuracy Inadvertent housekeeping department worker errors may occur 09/26/2024 Dietary counseling and surveillance (ICD-10 - Z71.3) #Weight Management 09/26/2024 thriving track down echo report from cont 5mg Zbound Total time spent today was 30 minutes of which greater than 50% was spent on coordinating and counseling Patient has been found to be overweight with a BMI of (25). Patient has overweight class per BMI standards We are a board certified obesity and weight management practice Patient has trialed behavioral modification, dietary restrictions and exercise for a minimum of 6 months The most recent [place] [employer] of clinical endocrinologists and [place] [employer] guidelines recommend patients who have overweight BMI or obesity BMI, who also have metabolic syndrome, prediabetes, HLD, and other comorbidities or at risk of developing type 2 diabetes should aim for a weight loss goal of at least 10% of the baseline body weight Patient counseled regarding effects of GLP/GIP-1 agonists, and other FDA approved wgt loss meds with regards to a multifactorial approach of weight loss as mentioned above and not solely appetite suppression. Of note, some information is being carried forward from prior records for informational purposes only and is being cited so that efficiency, safety and quality of the patient's care is not compromised This note was prepared using voice recognition software and direct typing Please excuse inadvertent housekeeping department worker or typing errors, or uncorrected word substitutions Although every attempt has been made by the provider to proofread this document, occasional misspellings and typographical errors may still be present Due to the previous pandemic, and the use of personal protective equipment (PPE) This may decrease voice recognition accuracy Inadvertent housekeeping department worker errors may occur 09/26/2024 Other hyperlipidemia (ICD-10 - E78.49) #Weight Management 09/26/2024 thriving track down echo report from HH cont 5mg Zbound Total time spent today was 30 minutes of which greater than 50% was spent on coordinating and counseling Patient has been found to be overweight with a BMI of (25). Patient has overweight class per BMI standards We are a board certified obesity and weight management practice Patient has trialed behavioral modification, dietary restrictions and exercise for a minimum of 6 months The most recent [place] [employer] of clinical endocrinologists and [place] [employer] guidelines recommend patients who have overweight BMI or obesity BMI, who also have metabolic syndrome, prediabetes, HLD, and other comorbidities or at risk of developing type 2 diabetes should aim for a weight loss goal of at least 10% of the baseline body weight Patient counseled regarding effects of GLP/GIP-1 agonists, and other FDA approved wgt loss meds with regards to a multifactorial approach of weight loss as mentioned above and not solely appetite suppression. Of note, some information is being carried forward from prior records for informational purposes only and is being cited so that efficiency, safety and quality of the patient's care is not compromised This note was prepared using voice recognition software and direct typing Please excuse inadvertent housekeeping department worker or typing errors, or uncorrected word substitutions Although every attempt has been made by the provider to proofread this document, occasional misspellings and typographical errors may still be present Due to the previous pandemic, and the use of personal protective equipment (PPE) This may decrease voice recognition accuracy Inadvertent housekeeping department worker errors may occur 09/26/2024 Past myocardial infarction (ICD-10 - I25.2) #Weight Management 09/26/2024 thriving track down echo report from HH cont 5mg Zbound Total time spent today was 30 minutes of which greater than 50% was spent on coordinating and counseling Patient has been found to be overweight with a BMI of (25). Patient has overweight class per BMI standards We are a board certified obesity and weight management practice Patient has trialed behavioral modification, dietary restrictions and exercise for a minimum of 6 months The most recent [place] [employer] of clinical endocrinologists and [place] [employer] end[employer]in[employer] guidelines recommend patients who have overweight BMI or obesity BMI, who also have metabolic syndrome, prediabetes, HLD, and other comorbidities or at risk of developing type 2 diabetes should aim for a weight loss goal of at least 10% of the baseline body weight Patient counseled regarding effects of GLP/GIP-1 agonists, and other FDA approved wgt loss meds with regards to a multifactorial approach of weight loss as mentioned above and not solely appetite suppression. Of note, some information is being carried forward from prior records for informational purposes only and is being cited so that efficiency, safety and quality of the patient's care is not compromised This note was prepared using voice recognition software and direct typing Please excuse inadvertent housekeeping department worker or typing errors, or uncorrected word substitutions Although every attempt has been made by the provider to proofread this document, occasional misspellings and typographical errors may still be present Due to the previous pandemic, and the use of personal protective equipment (PPE) This may decrease voice recognition accuracy Inadvertent housekeeping department worker errors may occur 09/26/2024 Migraine without status migrainosus, not intractable, unspecified migraine type (ICD-10 - G43.909) #Weight Management 09/26/2024 thriving track down echo report from cont 5mg Zbound Total time spent today was 30 minutes of which greater than 50% was spent on coordinating and counseling Patient has been found to be overweight with a BMI of (25). Patient has overweight class per BMI standards We are a board certified obesity and weight management practice Patient has trialed behavioral modification, dietary restrictions and exercise for a minimum of 6 months The most recent [place] [employer] of clinical endocrinologists and [place] [employer] end[employer]in[employer] guidelines recommend patients who have overweight BMI or obesity BMI, who also have metabolic syndrome, prediabetes, HLD, and other comorbidities or at risk of developing type 2 diabetes should aim for a weight loss goal of at least 10% of the baseline body weight Patient counseled regarding effects of GLP/GIP-1 agonists, and other FDA approved wgt loss meds with regards to a multifactorial approach of weight loss as mentioned above and not solely appetite suppression. Of note, some information is being carried forward from prior records for informational purposes only and is being cited so that efficiency, safety and quality of the patient's care is not compromised This note was prepared using voice recognition software and direct typing Please excuse inadvertent housekeeping department worker or typing errors, or uncorrected word substitutions Although every attempt has been made by the provider to proofread this document, occasional misspellings and typographical errors may still be present Due to the previous pandemic, and the use of personal protective equipment (PPE) This may decrease voice recognition accuracy Inadvertent housekeeping department worker errors may occur PLAN OF TREATMENT Medication Medication Name Sig Start Date Stop Date Notes Zepbound 5 MG/0.5ML 5mg Subcutaneous weekly for 30 days Next Appt Details Provider Name:DICK YOST , 10/24/2024 09:00:00 AM, [address], [address], [place], [address], Provider Name:IMELDA RENNER, 11/21/2024 09:30:00 AM, [address], [address], [place], [address], Progress Notes * Natalie BHAGATOB:[birth year] (44 yo F)Acc No.[id number]:09/26/2024 Patient:??Kelsey BHAGAT Provider:??IMELDA RENNER NP :1980?Age:44 Y?Sex:Fe male Date:09/26/2024 Address:[address] [place] [address], [id number] Subjective: * Chief Complaints: * ?1. Pt seen in office f or wt mgt f/u visit with [facility].. * HPI: ?Constitutional:? Patient is here today for a weight management f/u visit ?Patient seen and examined. ? Full past medical history, social history, family history, ?allergies and current medications were reviewed and updated. ?Body composition analysis reviewed today ?#Weight Management ?09/26/2024 ?thriving ?started on Zepbound 5mg ?discussed remaining on this dose ?down >13lbs of fat mass, has lost some muscle mass ?tolerating well no issues ?utilizing plant based proteins, shakes, etc ?disc incorporating strength/resistance training, muscle building activities ?PMH: ?GA (2017) - reports she had a blood clot. Caused by stress. No atherosclerosis found. ?Venous sinus thrombosis sedcondary to control pills (2008) ?ASA 81 mg ?Rosuvastatin 40mg every day ?Topiramate ?Botox shots (for migraines) ?Sees cardiology annually ?09/26/2024, Weight 149lbs , BMI 25 (-21lbs) ?07/25/2024, Weight 170lbs , BMI 29 (-14lbs) ?05/23/2024: Weight 184 lbs, BMI 30: ?Patient referred to us from social media and [facility]. 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 ?Highest weight: 184 lbs ?Lowest weight: 150 lbs ?Goal weight: 140 lbs ?MARY ANN screening/[facility]/[place]. Denies snoring. No concern for MARY ANN per pt. ?PCP: [facility] . Sees regularly. ?Metabolic workup: Had labs done through [facility] ?05/2024 ?TSH 3.64 ?CBC stable ?Renal function, Lytes, LFT stable ?Total Chol 137, LDL 183 ?Has an echocardiogram every year with her ore dressing engineer. ?Most recent was January 2024 through [facility]. ?Diet: She does not like to cook. Eats most meals out. Does not like red meat or pork. Mostly pescatarian. ?B: No breakfast. Gets black tea with pineapple and liquid cane sugar from [employer]. ?L: no lunch ?D: [employer] salad with balasamic vinegar and baguette. Occasionally with chips or scone. ?Or shrimp fiesta bowl from [employer] ?S: Not much of a snacker; hurts stomach. ?Exercise: Not tracking steps daily. ?Walks a lot at work. Mows her lawn. Used to go to the gym 4x/week. ?Knows she needs to go back to the gym but hard to fit in with work and other life things. ?No weight bearing exercise. ?Non-smoker. Never smoked or used tobacco. ?ETOH use: no ETOH. * ROS:?All Other Systems:?Review of Systems (ROS)??All others negative except those mentioned in HPI.? * Medical History:??Asthma, He art attack, Weight gain/loss, Migraines. * Surgical History:?? section 01/2007. * Hospitalization/Major Diagno stic Procedure:??Denies Past Hospitalization. * Family History:??Father: dec eased.??Mother: alive.??1 sister(s) . 1 daughter(s) - healthy. .?? father - unknown mother-diabetes. * Social History:?Pt denies havintg any concerns with current iving situation ???denies tobacco use, alcohol use and recreational drug use. * Medications:??Taking Zepboun d 2.5 MG/0.5ML Solution Auto-injector 2.5 mg weekly Subcutaneous Weekly , Taking Topiramate 100 MG Tablet 1 tablet Orally Once a day , Taking Venlafaxine HCl 75 MG Tablet 1 tablet with food Orally Once a day , Taking Famotidine 40 MG Tablet as directed Orally , Taking Aspirin 81 81 MG Tablet Delayed Release 1 tablet Orally Once a day , Not-Taking Zepbound 5 MG/0.5ML Solution 5mg Subcutaneous weekly , Medication List reviewed and reconciled with the patient * Allergies:??Morphine: anaphy laxis. Objective: * Vitals:??HR:82/min, BP:124/8 0mm Hg, Wt:149lbs, BMI:25.57Index, Ht: 64 in, Oxygen sat %:99%. * Examination: ?General Examination: ?GENERAL APPEARANCE:??in no acute distress, well developed, well nourished.??HEAD:??normocephalic, atraumatic.??EYES:??pupils equal, round, reactive to light and accommodation.??EARS:??normal.??ORAL CAVITY:??mucosa moist.??THROAT:??clear.??NECK/THYROID:??neck supple, full range of motion, no cervical lymphadenopathy.??SKIN:??no suspicious lesions, warm and dry.??HEART:??no murmurs, regular rate and rhythm, S1, S2 normal.??LUNGS:??clear to auscultation bilaterally.??ABDOMEN:??normal, bowel sounds present, soft, nontender, nondistended.??EXTREMITIES:??no clubbing, cyanosis, or edema.??NEUROLOGIC:??nonfocal, motor strength normal upper and lower extremities, sensory exam intact.? Assessment: * Assessment: 1.??Overweight - E66.3 (Prim lucretia)??2.??BMI 25.0-25.9,adult - Z68.25??3.??Dietary counseling and surveillance - Z71.3??4.??Other hyperlipidemia - E78.49??5.??Past myocardial infarction - I25.2??6.??Migraine without status migrainosus, not intractable, unspecified migraine type - G43.909?? #Weight Management 09/26/2024 thriving track down echo report from cont 5mg Zbound Total time spent today was 30 minutes of which greater than 50% was spent on coordinating and counseling Patient has been found to be overweight with a BMI of (25). Patient has overweight class per BMI standards We are a board certified obesity and weight management practice Patient has trialed behavioral modification, dietary restrictions and exercise for a minimum of 6 months The most recent [place] [employer] of clinical endocrinologists and [place] [employer] guidelines recommend patients who have overweight BMI or obesity BMI, who also have metabolic syndrome, prediabetes, HLD, and other comorbidities or at risk of developing type 2 diabetes should aim for a weight loss goal of at least 10% of the baseline body weight Patient counseled regarding effects of GLP/GIP-1 agonists, and other FDA approved wgt loss meds with regards to a multifactorial approach of weight loss as mentioned above and not solely appetite suppression. Of note, some information is being carried forward from prior records for informational purposes only and is being cited so that efficiency, safety and quality of the patient's care is not compromised This note was prepared using voice recognition software and direct typing Please excuse inadvertent housekeeping department worker or typing errors, or uncorrected word substitutions Although every attempt has been made by the provider to proofread this document, occasional misspellings and typographical errors may still be present Due to the previous pandemic, and the use of personal protective equipment (PPE) This may decrease voice recognition accuracy Inadvertent housekeeping department worker errors may occur. Plan: * Treatment: * Procedure Codes:??G0447 FCE- FCE BEHAVRL CNSL OBESITY 15 MIN, Modifiers: 59 * Images: Billing Information: * Visit Code:?? 98113 Office Visit, Est Pt., Level 4. * Procedure Codes:?? G0447 FCE-FCE BEHAVRL CNSL OBESITY 15 MIN. Modifiers: 59 * Sign off status: Completed true * Provider:?MIKE RENNER NP Date:??09/06 History and Physical Notes * HPI (History of Present Illness) Category Sub-Category Detail Notes Category Not es Constitutional Patient is here today for a weight management f/u visit Patient seen and examined. Full past medical history, social history, family history, allergies and current medications were reviewed and updated. Body composition analysis reviewed today #Weight Management 09/26/2024 thriving started on Zepbound 5mg discussed remaining on this dose down >13lbs of fat mass, has lost some muscle mass tolerating well no issues utilizing plant based proteins, shakes, etc disc incorporating strength/resistance training, muscle building activities PMH: [place] (2016) - reports she had a blood clot. Caused by stress. No atherosclerosis found. Venous sinus thrombosis sedcondary to control pills (2008) ASA 81 mg Rosuvastatin 40mg every day Topiramate Botox shots (for migraines) Sees cardiology annually 09/26/2024, Weight 149lbs , BMI 25 (-21lbs) 07/25/2024, Weight 170lbs , BMI 29 (-14lbs) 05/23/2024: Weight 184 lbs, BMI 30: Patient referred to us from social media and [employer]. 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 Highest weight: 184 lbs Lowest weight: 150 lbs Goal weight: 140 lbs MARY ANN screening/[facility]/[place]. Denies snoring. No concern for MARY ANN per pt. PCP: [facility] . Sees regularly. Metabolic workup: Had labs done through [facility] 05/2024 TSH 3.64 CBC stable Renal function, Lytes, LFT stable Total Chol 137, LDL 183 Has an echocardiogram every year with her ore dressing engineer. Most recent was January 2024 through [facility]. Diet: She does not like to cook. Eats most meals out. Does not like red meat or pork. Mostly pescatarian. B: No breakfast. Gets black tea with pineapple and liquid cane sugar from [employer]. L: no lunch D: [employer] salad with balasamic vinegar and baguette. Occasionally with chips or scone. Or shrimp fiesta bowl from [employer] S: Not much of a snacker; hurts stomach. Exercise: Not tracking steps daily. Walks a lot at work. Mows her lawn. Used to go to the gym 4x/week. Knows she needs to go back to the gym but hard to fit in with work and other life things. No weight bearing exercise. Non-smoker. Never smoked or used tobacco. ETOH use: no ETOH Examination Category Sub-Category Detail Notes Category Not es General Examination GENERAL APPEARANCE: in no ac [place] distress, well developed, well nourished HEAD: normocephalic, atrau matic EYES: pupils equal, round, reactive to light and accommodation EARS: normal THROAT: clear NECK/THYROID: neck supple, full ra nge of motion, no cervical lymphadenopathy HEART: no murmurs, regular rate and rhythm, S1, S2 normal LUNGS: clear to auscultatio n bilaterally ABDOMEN: normal, bowel sounds present, soft, nontender, nondistended NEUROLOGIC: nonfocal, motor stre ngth normal upper and lower extremities, sensory exam intact SKIN: no suspicious lesion s, warm and dry EXTREMITIES: no clubbing, cyanosi s, or edema ORAL CAVITY: mucosa moist
--- OUTSIDE RECORDS SUMMARY | 2024-10-15 06:54 | XMS_ITS ---
Author Organization [facility] Address [address] [place] [address] Care Team Providers Care Felt Hat Flanging Operator Name Role Phone IMELDA RENNER Unavailable [phone] Encounters Encounter Location Date Provider Diagnosis [facility] [address] [place] [address] 2024 IMELDA RENNER PLAN OF TREATMENT Next Appt Details Provider Name:DICK YOST , 10/24/2024 09:00:00 AM, [address], [address], [place], [address], Provider Name:IMELDA RENNER, 11/21/2024 09:30:00 AM, [address], [facility], [place], [address], Progress Notes * Natalie BHAGATOB:[birth year] (44 yo F)Acc No.[id number] Patient:??Kelsey BHAGAT :1980?Age:44 Y?Sex:Fe male Address:[address], [place] [address] * true * Date:??
--- OUTSIDE RECORDS SUMMARY | 2024-10-15 06:54 | XMS_ITS ---
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 MEDICATIONS Medication SIG (Take, Route, Fr equency, Duration) Notes Start Date End Date Status Zepbound 5 MG/0.5ML 5mg Subcutaneous wee kly for 30 days 07/25/2024 Active Aspirin 81 81 MG 1 tablet Orally Once a day Active Venlafaxine HCl 75 MG 1 tablet with food Orally Once a day Active Famotidine 40 MG as directed Orally Active Topiramate 100 MG 1 tablet Orally Once a day Active Zepbound 2.5 MG/0.5ML 2.5 mg weekly Subc utaneous Weekly for 30 days Active VITAL SIGNS Heart Rate 82 /min 07/25/2024 Blood pressure systolic 136 mm Hg 07/25/20 24 Blood pressure diastolic 86 mm Hg 024 Weight 170 lbs 07/25/2024 BMI 29.18 kg/m2 07/25/2024 Height 64 in 07/25/2024 Oximetry 96 % 07/25/2024 Encounters Encounter Location Date Provider Diagnosis [facility] [address] [address] 07/25/2024 IMELDA RENNER Overweight E66.3 ; B MA 29.0-29.9,adult Z68.29 ; Dietary counseling and surveillance Z71.3 ; Other hyperlipidemia E78.49 ; Past myocardial infarction I25.2 and Migraine without status migrainosus, not intractable, unspecified migraine type G43.909 ASSESSMENTS Encounter Date Diagnosis Assessment Notes Treatment Notes Treatment Clinical Notes Section Notes 07/25/2024 Overweight (ICD-10 - E66.3) #Weight Management 07/25/2024 thriving track down echo report from prime candidate for dual incretin incr to 5mg Zbound Total time spent today was 30 minutes of which greater than 50% was spent on coordinating and counseling Patient has been found to be overweight with a BMI of (29). Patient has overweight class per BMI standards We are a board certified obesity and weight management practice Patient has trialed behavioral modification, dietary restrictions and exercise for a minimum of 6 months The most recent [place] [employer] clinical endocrinologists and [place] [employer] guidelines recommend patients who [...] mentioned above and not solely appetite suppression. We have discussed the mechanism of GLP-1's/GIP, dual incretins I think this would be fantastic option for her given her metabolic workup and body composition We have discussed the risks and benefits and side effects including/and not limited to Sarcopenia, intestinal obstruction, constipation, nausea, lethargy, headache Discussed importance of protein consumption for muscle maintenance as well as strength and resistance training ,probiotics, B12 complex biotin , iron and other nutrients, To help avoid telogen effluvium There is no history of medullary thyroid cancer or multiple endocrine neoplasia There is also no history of cardiovascular disease, hypertension, palpitations, or arrhythmias In the setting of potential stimulant/amphetami ne use such as phentermine We have also discussed risks and benefits, and the use of compounded medications to help offset the national shortages as well as financial implications vs trade name drugs GLP must be discontinued upon initiation We have discussed the lifelong requirement of nutritional supplementation And adherence to an exercise regimen as well as importance We did discuss the neurohormonal changes that are occurring with these medications and Need for long-term Continued usage The patient understands and agrees Patient was reassured and welcomed to the practice. We discussed that we stress a hollistic medical approach with emphasis on lifestyle modification. Patient was informed that a healthy lifestyle with exercise and good eating habits can help reduce his risk of medical complications. He is explained that obesity increases his risk of diabetes, cardiovascular disease, or organ damage. We spent a lot of time discussing the relationship between food, exercise, sleep, mental health and obesity. Patient was counseled on the importance EATING local, organic food when possible. Patient was educated on clean 15 and dirty dozen. I provided information about reading books called The Food Rules by Blaise Henderson and Eat Fat Get Lean by Dr Jack Oakes. Self education is important in the journey for weight management. Patient was offered diagnostic testing. We want to measure visceral adiposity, advanced body composition, adverse lipids, fatty acid balance, risk for heart disease and atherosclerosis, markers of inflammation and genetic susceptibility. Patient was counseled on weight management and was advised to lose weight using A. Meal Replacement Products We discussed the lifelong requirement of nutritional supplementation and adherence to an exercise regimen as well as importance of dietary f/u Patient was educated on the replacement products called optifast. This is a good way of taking fixed amount of calories. It has been shown in studies to be ineffective weight management tool. We also recommend maintaining adequate protein intake and muscle composition, 1.5mg/kg This however has to be coupled with lifestyle intervention as well as laboratory data and EKG monitoring. It is impossible to know how a person will tolerate complete meal replacement. The side effects of meal replacement and weight loss could include syncopal attacks, dizziness, gallstones, potential cholecystectomy, possible heart attack and even . The benefits of meal replacement would be potential weight loss but no guarantees can be made. Meal replacement products are not covered by insurance. Once the patient has bought these products we cannot return them B. Lifestyle management which includes several strategies as below 1. Eat a low carbohydrate good fat good protein diet. Eliminate refined carbohydrates from the diet. Continue blood sugar and sugared beverages. Eat local organic when possible. Cook your own meals. Read food labels. None about healthy snacks. Portion control and food with low glycemic index 2. Exercise regularly. Try to get at least 6000 steps a day. Use a predominant to track activity level. Consider using apps like [employer], [employer], lose it, stick as needed for self-monitoring and weight management. Consider group exercises. Consider hiring a personal lines account manager. Regular exercise is giron to sustainable health and prevents as a buffer against weight regain 3. Sleep is most important for healing. Tried to sleep at least 8 hours a night. A good quality sleep needs a sleep ritual with ideal room temperature of around 68. It might help to take a shower and have no electronics in the room and sleep in a very dark room without artificial light. Start her sleep routine and get up early in the morning and go to bed on time 4. Make a social connection. Surround yourself with positive people with positive energy. Connect with friends and family. 5. Get into the habit of meditating and mindfulness while doing everything. 6. Go outside and connect with nature. C. Prescription medications Patient was educated on the use of prescription medications for medical weight loss. This is a growing list and includes phentermine, Topamax,Qsymia, contrave, belviq and saxenda, wegovy All prescription medications could have side effects including but not limited to kidney stones, seizure disorder cardiac arrhythmias heart attack pancreatitis etc. etc.. Patient was encouraged to read the prescription insert and have coaching with their pharmacist and make an informed decision about taking medication and know that these medications are being prescribed with good intentions and we do not know how a patient would react to her medication. Sudden medications are FDA approved for weight loss and there is also off label use depending on patient's inability to afford medications in an attempt to lose weight D. Behavioral counseling was done to establish a relationship between food and an mood. Patient was provided information about local counseling and psychiatry and Dr Carcamo at [facility]. We would like to cover regular topics and build on low glycemic eating exercise mindful eating, using yoga and meditation along with deep breathing and connecting with friends and family. E. MASS PAT reviewed, Patient's current medications were reviewed and opinion was given on medication that can cause weight gain and can be substituted F. Patient was assessed for risk with obesity including and not limiting to atherosclerosis heart disease stroke kidney disease, restrictive lung disease, irritable bowel syndrome and overall mortality. Risk of developing prediabetes diabetes and metabolic syndrome was discussed G. Therapeutic plan: We have decided to make therapeutic plan which would include choosing wisely on calories restricting portion getting active, tracking weight, getting good quality sleep and working on time management H. Patient will follow up in (4) weeks for weight management Of note, some information is being carried forward from prior records for informational purposes only and is being cited so that efficiency, safety and quality of the patient's care is not compromised This note was prepared using voice recognition software and direct typing Please excuse inadvertent director of instrumental music or typing errors, or uncorrected word substitutions Although every attempt has been made by the provider to proofread this document, occasional misspellings and typographical errors may still be present Due to the previous pandemic, and the use of personal protective equipment (PPE) This may decrease voice recognition accuracy Inadvertent director of instrumental music errors may occur 07/25/2024 BMI 29.0-29.9,adult (ICD-10 - Z68.29) #Weight Management 07/25/2024 thriving track down echo report from prime candidate for dual incretin incr to 5mg Zbound Total time spent today was 30 minutes of which greater than 50% was spent on coordinating and counseling Patient has been found to be overweight with a BMI of (29). Patient has overweight class per BMI standards We are a board certified obesity and weight management practice Patient has trialed behavioral modification, dietary restrictions and exercise for a minimum of 6 months The most recent [place] [employer] clinical endocrinologists and [place] [employer] guidelines recommend patients who [...] mentioned above and not solely appetite suppression. We have discussed the mechanism of GLP-1's/GIP, dual incretins I think this would be fantastic option for her given her metabolic workup and body composition We have discussed the risks and benefits and side effects including/and not limited to Sarcopenia, intestinal obstruction, constipation, nausea, lethargy, headache Discussed importance of protein consumption for muscle maintenance as well as strength and resistance training ,probiotics, B12 complex biotin , iron and other nutrients, To help avoid telogen effluvium There is no history of medullary thyroid cancer or multiple endocrine neoplasia There is also no history of cardiovascular disease, hypertension, palpitations, or arrhythmias In the setting of potential stimulant/amphetami ne use such as phentermine We have also discussed risks and benefits, and the use of compounded medications to help offset the national shortages as well as financial implications vs trade name drugs GLP must be discontinued upon initiation We have discussed the lifelong requirement of nutritional supplementation And adherence to an exercise regimen as well as importance We did discuss the neurohormonal changes that are occurring with these medications and Need for long-term Continued usage The patient understands and agrees Patient was reassured and welcomed to the practice. We discussed that we stress a hollistic medical approach with emphasis on lifestyle modification. Patient was informed that a healthy lifestyle with exercise and good eating habits can help reduce his risk of medical complications. He is explained that obesity increases his risk of diabetes, cardiovascular disease, or organ damage. We spent a lot of time discussing the relationship between food, exercise, sleep, mental health and obesity. Patient was counseled on the importance EATING local, organic food when possible. Patient was educated on clean 15 and dirty dozen. I provided information about reading books called The Food Rules by Blaise Henderson and Eat Fat Get Lean by Dr Jack Oakes. Self education is important in the journey for weight management. Patient was offered diagnostic testing. We want to measure visceral adiposity, advanced body composition, adverse lipids, fatty acid balance, risk for heart disease and atherosclerosis, markers of inflammation and genetic susceptibility. Patient was counseled on weight management and was advised to lose weight using A. Meal Replacement Products We discussed the lifelong requirement of nutritional supplementation and adherence to an exercise regimen as well as importance of dietary f/u Patient was educated on the replacement products called optifast. This is a good way of taking fixed amount of calories. It has been shown in studies to be ineffective weight management tool. We also recommend maintaining adequate protein intake and muscle composition, 1.5mg/kg This however has to be coupled with lifestyle intervention as well as laboratory data and EKG monitoring. It is impossible to know how a person will tolerate complete meal replacement. The side effects of meal replacement and weight loss could include syncopal attacks, dizziness, gallstones, potential cholecystectomy, possible heart attack and even . The benefits of meal replacement would be potential weight loss but no guarantees can be made. Meal replacement products are not covered by insurance. Once the patient has bought these products we cannot return them B. Lifestyle management which includes several strategies as below 1. Eat a low carbohydrate good fat good protein diet. Eliminate refined carbohydrates from the diet. Continue blood sugar and sugared beverages. Eat local organic when possible. Cook your own meals. Read food labels. None about healthy snacks. Portion control and food with low glycemic index 2. Exercise regularly. Try to get at least 6000 steps a day. Use a predominant to track activity level. Consider using apps like [employer], [employer], lose it, stick as needed for self-monitoring and weight management. Consider group exercises. Consider hiring a personal lines account manager. Regular exercise is giron to sustainable health and prevents as a buffer against weight regain 3. Sleep is most important for healing. Tried to sleep at least 8 hours a night. A good quality sleep needs a sleep ritual with ideal room temperature of around 68. It might help to take a shower and have no electronics in the room and sleep in a very dark room without artificial light. Start her sleep routine and get up early in the morning and go to bed on time 4. Make a social connection. Surround yourself with positive people with positive energy. Connect with friends and family. 5. Get into the habit of meditating and mindfulness while doing everything. 6. Go outside and connect with nature. C. Prescription medications Patient was educated on the use of prescription medications for medical weight loss. This is a growing list and includes phentermine, Topamax,Qsymia, contrave, belviq and saxenda, wegovy All prescription medications could have side effects including but not limited to kidney stones, seizure disorder cardiac arrhythmias heart attack pancreatitis etc. etc.. Patient was encouraged to read the prescription insert and have coaching with their pharmacist and make an informed decision about taking medication and know that these medications are being prescribed with good intentions and we do not know how a patient would react to her medication. Sudden medications are FDA approved for weight loss and there is also off label use depending on patient's inability to afford medications in an attempt to lose weight D. Behavioral counseling was done to establish a relationship between food and an mood. Patient was provided information about local counseling and psychiatry and Dr Carcamo at [facility]. We would like to cover regular topics and build on low glycemic eating exercise mindful eating, using yoga and meditation along with deep breathing and connecting with friends and family. E. MASS PAT reviewed, Patient's current medications were reviewed and opinion was given on medication that can cause weight gain and can be substituted F. Patient was assessed for risk with obesity including and not limiting to atherosclerosis heart disease stroke kidney disease, restrictive lung disease, irritable bowel syndrome and overall mortality. Risk of developing prediabetes diabetes and metabolic syndrome was discussed G. Therapeutic plan: We have decided to make therapeutic plan which would include choosing wisely on calories restricting portion getting active, tracking weight, getting good quality sleep and working on time management H. Patient will follow up in (4) weeks for weight management Of note, some information is being carried forward from prior records for informational purposes only and is being cited so that efficiency, safety and quality of the patient's care is not compromised This note was prepared using voice recognition software and direct typing Please excuse inadvertent director of instrumental music or typing errors, or uncorrected word substitutions Although every attempt has been made by the provider to proofread this document, occasional misspellings and typographical errors may still be present Due to the previous pandemic, and the use of personal protective equipment (PPE) This may decrease voice recognition accuracy Inadvertent director of instrumental music errors may occur 07/25/2024 Dietary counseling and surveillance (ICD-10 - Z71.3) #Weight Management 07/25/2024 thriving track down echo report from prime candidate for dual incretin incr to 5mg Zbound Total time spent today was 30 minutes of which greater than 50% was spent on coordinating and counseling Patient has been found to be overweight with a BMI of (29). Patient has overweight class per BMI standards We are a board certified obesity and weight management practice Patient has trialed behavioral modification, dietary restrictions and exercise for a minimum of 6 months The most recent [place] [employer] of clinical endocrinologists and [place] [employer] guidelines recommend patients who [...] mentioned above and not solely appetite suppression. We have discussed the mechanism of GLP-1's/GIP, dual incretins I think this would be fantastic option for her given her metabolic workup and body composition We have discussed the risks and benefits and side effects including/and not limited to Sarcopenia, intestinal obstruction, constipation, nausea, lethargy, headache Discussed importance of protein consumption for muscle maintenance as well as strength and resistance training ,probiotics, B12 complex biotin , iron and other nutrients, To help avoid telogen effluvium There is no history of medullary thyroid cancer or multiple endocrine neoplasia There is also no history of cardiovascular disease, hypertension, palpitations, or arrhythmias In the setting of potential stimulant/amphetami ne use such as phentermine We have also discussed risks and benefits, and the use of compounded medications to help offset the national shortages as well as financial implications vs trade name drugs GLP must be discontinued upon initiation We have discussed the lifelong requirement of nutritional supplementation And adherence to an exercise regimen as well as importance We did discuss the neurohormonal changes that are occurring with these medications and Need for long-term Continued usage The patient understands and agrees Patient was reassured and welcomed to the practice. We discussed that we stress a hollistic medical approach with emphasis on lifestyle modification. Patient was informed that a healthy lifestyle with exercise and good eating habits can help reduce his risk of medical complications. He is explained that obesity increases his risk of diabetes, cardiovascular disease, or organ damage. We spent a lot of time discussing the relationship between food, exercise, sleep, mental health and obesity. Patient was counseled on the importance EATING local, organic food when possible. Patient was educated on clean 15 and dirty dozen. I provided information about reading books called The Food Rules by Blaise Henderson and Eat Fat Get Lean by Dr Jack Oakes. Self education is important in the journey for weight management. Patient was offered diagnostic testing. We want to measure visceral adiposity, advanced body composition, adverse lipids, fatty acid balance, risk for heart disease and atherosclerosis, markers of inflammation and genetic susceptibility. Patient was counseled on weight management and was advised to lose weight using A. Meal Replacement Products We discussed the lifelong requirement of nutritional supplementation and adherence to an exercise regimen as well as importance of dietary f/u Patient was educated on the replacement products called optifast. This is a good way of taking fixed amount of calories. It has been shown in studies to be ineffective weight management tool. We also recommend maintaining adequate protein intake and muscle composition, 1.5mg/kg This however has to be coupled with lifestyle intervention as well as laboratory data and EKG monitoring. It is impossible to know how a person will tolerate complete meal replacement. The side effects of meal replacement and weight loss could include syncopal attacks, dizziness, gallstones, potential cholecystectomy, possible heart attack and even . The benefits of meal replacement would be potential weight loss but no guarantees can be made. Meal replacement products are not covered by insurance. Once the patient has bought these products we cannot return them B. Lifestyle management which includes several strategies as below 1. Eat a low carbohydrate good fat good protein diet. Eliminate refined carbohydrates from the diet. Continue blood sugar and sugared beverages. Eat local organic when possible. Cook your own meals. Read food labels. None about healthy snacks. Portion control and food with low glycemic index 2. Exercise regularly. Try to get at least 6000 steps a day. Use a predominant to track activity level. Consider using apps like [employer], [employer], lose it, stick as needed for self-monitoring and weight management. Consider group exercises. Consider hiring a personal lines account manager. Regular exercise is giron to sustainable health and prevents as a buffer against weight regain 3. Sleep is most important for healing. Tried to sleep at least 8 hours a night. A good quality sleep needs a sleep ritual with ideal room temperature of around 68. It might help to take a shower and have no electronics in the room and sleep in a very dark room without artificial light. Start her sleep routine and get up early in the morning and go to bed on time 4. Make a social connection. Surround yourself with positive people with positive energy. Connect with friends and family. 5. Get into the habit of meditating and mindfulness while doing everything. 6. Go outside and connect with nature. C. Prescription medications Patient was educated on the use of prescription medications for medical weight loss. This is a growing list and includes phentermine, Topamax,Qsymia, contrave, belviq and saxenda, wegovy All prescription medications could have side effects including but not limited to kidney stones, seizure disorder cardiac arrhythmias heart attack pancreatitis etc. etc.. Patient was encouraged to read the prescription insert and have coaching with their pharmacist and make an informed decision about taking medication and know that these medications are being prescribed with good intentions and we do not know how a patient would react to her medication. Sudden medications are FDA approved for weight loss and there is also off label use depending on patient's inability to afford medications in an attempt to lose weight D. Behavioral counseling was done to establish a relationship between food and an mood. Patient was provided information about local counseling and psychiatry and Dr Carcamo at [facility]. We would like to cover regular topics and build on low glycemic eating exercise mindful eating, using yoga and meditation along with deep breathing and connecting with friends and family. E. MASS PAT reviewed, Patient's current medications were reviewed and opinion was given on medication that can cause weight gain and can be substituted F. Patient was assessed for risk with obesity including and not limiting to atherosclerosis heart disease stroke kidney disease, restrictive lung disease, irritable bowel syndrome and overall mortality. Risk of developing prediabetes diabetes and metabolic syndrome was discussed G. Therapeutic plan: We have decided to make therapeutic plan which would include choosing wisely on calories restricting portion getting active, tracking weight, getting good quality sleep and working on time management H. Patient will follow up in (4) weeks for weight management Of note, some information is being carried forward from prior records for informational purposes only and is being cited so that efficiency, safety and quality of the patient's care is not compromised This note was prepared using voice recognition software and direct typing Please excuse inadvertent director of instrumental music or typing errors, or uncorrected word substitutions Although every attempt has been made by the provider to proofread this document, occasional misspellings and typographical errors may still be present Due to the previous pandemic, and the use of personal protective equipment (PPE) This may decrease voice recognition accuracy Inadvertent director of instrumental music errors may occur 07/25/2024 Other hyperlipidemia (ICD-10 - E78.49) #Weight Management 07/25/2024 thriving track down echo report from prime candidate for dual incretin incr to 5mg Zbound Total time spent today was 30 minutes of which greater than 50% was spent on coordinating and counseling Patient has been found to be overweight with a BMI of (29). Patient has overweight class per BMI standards We are a board certified obesity and weight management practice Patient has trialed behavioral modification, dietary restrictions and exercise for a minimum of 6 months The most recent [place] [employer]in[employer] and [place] [employer] guidelines recommend patients who [...] mentioned above and not solely appetite suppression. We have discussed the mechanism of GLP-1's/GIP, dual incretins I think this would be fantastic option for her given her metabolic workup and body composition We have discussed the risks and benefits and side effects including/and not limited to Sarcopenia, intestinal obstruction, constipation, nausea, lethargy, headache Discussed importance of protein consumption for muscle maintenance as well as strength and resistance training ,probiotics, B12 complex biotin , iron and other nutrients, To help avoid telogen effluvium There is no history of medullary thyroid cancer or multiple endocrine neoplasia There is also no history of cardiovascular disease, hypertension, palpitations, or arrhythmias In the setting of potential stimulant/amphetami ne use such as phentermine We have also discussed risks and benefits, and the use of compounded medications to help offset the national shortages as well as financial implications vs trade name drugs GLP must be discontinued upon initiation We have discussed the lifelong requirement of nutritional supplementation And adherence to an exercise regimen as well as importance We did discuss the neurohormonal changes that are occurring with these medications and Need for long-term Continued usage The patient understands and agrees Patient was reassured and welcomed to the practice. We discussed that we stress a hollistic medical approach with emphasis on lifestyle modification. Patient was informed that a healthy lifestyle with exercise and good eating habits can help reduce his risk of medical complications. He is explained that obesity increases his risk of diabetes, cardiovascular disease, or organ damage. We spent a lot of time discussing the relationship between food, exercise, sleep, mental health and obesity. Patient was counseled on the importance EATING local, organic food when possible. Patient was educated on clean 15 and dirty dozen. I provided information about reading books called The Food Rules by Blaise Henderson and Eat Fat Get Lean by Dr Jack Oakes. Self education is important in the journey for weight management. Patient was offered diagnostic testing. We want to measure visceral adiposity, advanced body composition, adverse lipids, fatty acid balance, risk for heart disease and atherosclerosis, markers of inflammation and genetic susceptibility. Patient was counseled on weight management and was advised to lose weight using A. Meal Replacement Products We discussed the lifelong requirement of nutritional supplementation and adherence to an exercise regimen as well as importance of dietary f/u Patient was educated on the replacement products called optifast. This is a good way of taking fixed amount of calories. It has been shown in studies to be ineffective weight management tool. We also recommend maintaining adequate protein intake and muscle composition, 1.5mg/kg This however has to be coupled with lifestyle intervention as well as laboratory data and EKG monitoring. It is impossible to know how a person will tolerate complete meal replacement. The side effects of meal replacement and weight loss could include syncopal attacks, dizziness, gallstones, potential cholecystectomy, possible heart attack and even . The benefits of meal replacement would be potential weight loss but no guarantees can be made. Meal replacement products are not covered by insurance. Once the patient has bought these products we cannot return them B. Lifestyle management which includes several strategies as below 1. Eat a low carbohydrate good fat good protein diet. Eliminate refined carbohydrates from the diet. Continue blood sugar and sugared beverages. Eat local organic when possible. Cook your own meals. Read food labels. None about healthy snacks. Portion control and food with low glycemic index 2. Exercise regularly. Try to get at least 6000 steps a day. Use a predominant to track activity level. Consider using apps like [employer], [employer], lose it, stick as needed for self-monitoring and weight management. Consider group exercises. Consider hiring a personal lines account manager. Regular exercise is giron to sustainable health and prevents as a buffer against weight regain 3. Sleep is most important for healing. Tried to sleep at least 8 hours a night. A good quality sleep needs a sleep ritual with ideal room temperature of around 68. It might help to take a shower and have no electronics in the room and sleep in a very dark room without artificial light. Start her sleep routine and get up early in the morning and go to bed on time 4. Make a social connection. Surround yourself with positive people with positive energy. Connect with friends and family. 5. Get into the habit of meditating and mindfulness while doing everything. 6. Go outside and connect with nature. C. Prescription medications Patient was educated on the use of prescription medications for medical weight loss. This is a growing list and includes phentermine, Topamax,Qsymia, contrave, belviq and saxenda, wegovy All prescription medications could have side effects including but not limited to kidney stones, seizure disorder cardiac arrhythmias heart attack pancreatitis etc. etc.. Patient was encouraged to read the prescription insert and have coaching with their pharmacist and make an informed decision about taking medication and know that these medications are being prescribed with good intentions and we do not know how a patient would react to her medication. Sudden medications are FDA approved for weight loss and there is also off label use depending on patient's inability to afford medications in an attempt to lose weight D. Behavioral counseling was done to establish a relationship between food and an mood. Patient was provided information about local counseling and psychiatry and Dr Carcamo at [facility]. We would like to cover regular topics and build on low glycemic eating exercise mindful eating, using yoga and meditation along with deep breathing and connecting with friends and family. E. MASS PAT reviewed, Patient's current medications were reviewed and opinion was given on medication that can cause weight gain and can be substituted F. Patient was assessed for risk with obesity including and not limiting to atherosclerosis heart disease stroke kidney disease, restrictive lung disease, irritable bowel syndrome and overall mortality. Risk of developing prediabetes diabetes and metabolic syndrome was discussed G. Therapeutic plan: We have decided to make therapeutic plan which would include choosing wisely on calories restricting portion getting active, tracking weight, getting good quality sleep and working on time management H. Patient will follow up in (4) weeks for weight management Of note, some information is being carried forward from prior records for informational purposes only and is being cited so that efficiency, safety and quality of the patient's care is not compromised This note was prepared using voice recognition software and direct typing Please excuse inadvertent director of instrumental music or typing errors, or uncorrected word substitutions Although every attempt has been made by the provider to proofread this document, occasional misspellings and typographical errors may still be present Due to the previous pandemic, and the use of personal protective equipment (PPE) This may decrease voice recognition accuracy Inadvertent director of instrumental music errors may occur 07/25/2024 Past myocardial infarction (ICD-10 - I25.2) #Weight Management 07/25/2024 thriving track down echo report from prime candidate for dual incretin incr to 5mg Zbound Total time spent today was 30 minutes of which greater than 50% was spent on coordinating and counseling Patient has been found to be overweight with a BMI of (29). Patient has overweight class per BMI standards We are a board certified obesity and weight management practice Patient has trialed behavioral modification, dietary restrictions and exercise for a minimum of 6 months The most recent [place] [employer]ocrin[employer] and [place] [employer] guidelines recommend patients who [...] mentioned above and not solely appetite suppression. We have discussed the mechanism of GLP-1's/GIP, dual incretins I think this would be fantastic option for her given her metabolic workup and body composition We have discussed the risks and benefits and side effects including/and not limited to Sarcopenia, intestinal obstruction, constipation, nausea, lethargy, headache Discussed importance of protein consumption for muscle maintenance as well as strength and resistance training ,probiotics, B12 complex biotin , iron and other nutrients, To help avoid telogen effluvium There is no history of medullary thyroid cancer or multiple endocrine neoplasia There is also no history of cardiovascular disease, hypertension, palpitations, or arrhythmias In the setting of potential stimulant/amphetami ne use such as phentermine We have also discussed risks and benefits, and the use of compounded medications to help offset the national shortages as well as financial implications vs trade name drugs GLP must be discontinued upon initiation We have discussed the lifelong requirement of nutritional supplementation And adherence to an exercise regimen as well as importance We did discuss the neurohormonal changes that are occurring with these medications and Need for long-term Continued usage The patient understands and agrees Patient was reassured and welcomed to the practice. We discussed that we stress a hollistic medical approach with emphasis on lifestyle modification. Patient was informed that a healthy lifestyle with exercise and good eating habits can help reduce his risk of medical complications. He is explained that obesity increases his risk of diabetes, cardiovascular disease, or organ damage. We spent a lot of time discussing the relationship between food, exercise, sleep, mental health and obesity. Patient was counseled on the importance EATING local, organic food when possible. Patient was educated on clean 15 and dirty dozen. I provided information about reading books called The Food Rules by Blaise Henderson and Eat Fat Get Lean by Dr Jack Oakes. Self education is important in the journey for weight management. Patient was offered diagnostic testing. We want to measure visceral adiposity, advanced body composition, adverse lipids, fatty acid balance, risk for heart disease and atherosclerosis, markers of inflammation and genetic susceptibility. Patient was counseled on weight management and was advised to lose weight using A. Meal Replacement Products We discussed the lifelong requirement of nutritional supplementation and adherence to an exercise regimen as well as importance of dietary f/u Patient was educated on the replacement products called optifast. This is a good way of taking fixed amount of calories. It has been shown in studies to be ineffective weight management tool. We also recommend maintaining adequate protein intake and muscle composition, 1.5mg/kg This however has to be coupled with lifestyle intervention as well as laboratory data and EKG monitoring. It is impossible to know how a person will tolerate complete meal replacement. The side effects of meal replacement and weight loss could include syncopal attacks, dizziness, gallstones, potential cholecystectomy, possible heart attack and even . The benefits of meal replacement would be potential weight loss but no guarantees can be made. Meal replacement products are not covered by insurance. Once the patient has bought these products we cannot return them B. Lifestyle management which includes several strategies as below 1. Eat a low carbohydrate good fat good protein diet. Eliminate refined carbohydrates from the diet. Continue blood sugar and sugared beverages. Eat local organic when possible. Cook your own meals. Read food labels. None about healthy snacks. Portion control and food with low glycemic index 2. Exercise regularly. Try to get at least 6000 steps a day. Use a predominant to track activity level. Consider using apps like [employer], myfitnesspal, lose it, stick as needed for self-monitoring and weight management. Consider group exercises. Consider hiring a personal lines account manager. Regular exercise is giron to sustainable health and prevents as a buffer against weight regain 3. Sleep is most important for healing. Tried to sleep at least 8 hours a night. A good quality sleep needs a sleep ritual with ideal room temperature of around 68. It might help to take a shower and have no electronics in the room and sleep in a very dark room without artificial light. Start her sleep routine and get up early in the morning and go to bed on time 4. Make a social connection. Surround yourself with positive people with positive energy. Connect with friends and family. 5. Get into the habit of meditating and mindfulness while doing everything. 6. Go outside and connect with nature. C. Prescription medications Patient was educated on the use of prescription medications for medical weight loss. This is a growing list and includes phentermine, Topamax,Qsymia, contrave, belviq and saxenda, wegovy All prescription medications could have side effects including but not limited to kidney stones, seizure disorder cardiac arrhythmias heart attack pancreatitis etc. etc.. Patient was encouraged to read the prescription insert and have coaching with their pharmacist and make an informed decision about taking medication and know that these medications are being prescribed with good intentions and we do not know how a patient would react to her medication. Sudden medications are FDA approved for weight loss and there is also off label use depending on patient's inability to afford medications in an attempt to lose weight D. Behavioral counseling was done to establish a relationship between food and an mood. Patient was provided information about local counseling and psychiatry and Dr Carcamo at [facility]. We would like to cover regular topics and build on low glycemic eating exercise mindful eating, using yoga and meditation along with deep breathing and connecting with friends and family. E. MASS PAT reviewed, Patient's current medications were reviewed and opinion was given on medication that can cause weight gain and can be substituted F. Patient was assessed for risk with obesity including and not limiting to atherosclerosis heart disease stroke kidney disease, restrictive lung disease, irritable bowel syndrome and overall mortality. Risk of developing prediabetes diabetes and metabolic syndrome was discussed G. Therapeutic plan: We have decided to make therapeutic plan which would include choosing wisely on calories restricting portion getting active, tracking weight, getting good quality sleep and working on time management H. Patient will follow up in (4) weeks for weight management Of note, some information is being carried forward from prior records for informational purposes only and is being cited so that efficiency, safety and quality of the patient's care is not compromised This note was prepared using voice recognition software and direct typing Please excuse inadvertent director of instrumental music or typing errors, or uncorrected word substitutions Although every attempt has been made by the provider to proofread this document, occasional misspellings and typographical errors may still be present Due to the previous pandemic, and the use of personal protective equipment (PPE) This may decrease voice recognition accuracy Inadvertent director of instrumental music errors may occur 07/25/2024 Migraine without status migrainosus, not intractable, unspecified migraine type (ICD-10 - G43.909) #Weight Management 07/25/2024 thriving track down echo report from HH prime candidate for dual incretin incr to 5mg Zbound Total time spent today was 30 minutes of which greater than 50% was spent on coordinating and counseling Patient has been found to be overweight with a BMI of (29). Patient has overweight class per BMI standards We are a board certified obesity and weight management practice Patient has trialed behavioral modification, dietary restrictions and exercise for a minimum of 6 months The most recent [place] [employer]ocrin[employer] and [place] [employer] guidelines recommend patients who [...] mentioned above and not solely appetite suppression. We have discussed the mechanism of GLP-1's/GIP, dual incretins I think this would be fantastic option for her given her metabolic workup and body composition We have discussed the risks and benefits and side effects including/and not limited to Sarcopenia, intestinal obstruction, constipation, nausea, lethargy, headache Discussed importance of protein consumption for muscle maintenance as well as strength and resistance training ,probiotics, B12 complex biotin , iron and other nutrients, To help avoid telogen effluvium There is no history of medullary thyroid cancer or multiple endocrine neoplasia There is also no history of cardiovascular disease, hypertension, palpitations, or arrhythmias In the setting of potential stimulant/amphetami ne use such as phentermine We have also discussed risks and benefits, and the use of compounded medications to help offset the national shortages as well as financial implications vs trade name drugs GLP must be discontinued upon initiation We have discussed the lifelong requirement of nutritional supplementation And adherence to an exercise regimen as well as importance We did discuss the neurohormonal changes that are occurring with these medications and Need for long-term Continued usage The patient understands and agrees Patient was reassured and welcomed to the practice. We discussed that we stress a hollistic medical approach with emphasis on lifestyle modification. Patient was informed that a healthy lifestyle with exercise and good eating habits can help reduce his risk of medical complications. He is explained that obesity increases his risk of diabetes, cardiovascular disease, or organ damage. We spent a lot of time discussing the relationship between food, exercise, sleep, mental health and obesity. Patient was counseled on the importance EATING local, organic food when possible. Patient was educated on clean 15 and dirty dozen. I provided information about reading books called The Food Rules by Blaise Henderson and Eat Fat Get Lean by Dr Jack Oakes. Self education is important in the journey for weight management. Patient was offered diagnostic testing. We want to measure visceral adiposity, advanced body composition, adverse lipids, fatty acid balance, risk for heart disease and atherosclerosis, markers of inflammation and genetic susceptibility. Patient was counseled on weight management and was advised to lose weight using A. Meal Replacement Products We discussed the lifelong requirement of nutritional supplementation and adherence to an exercise regimen as well as importance of dietary f/u Patient was educated on the replacement products called optifast. This is a good way of taking fixed amount of calories. It has been shown in studies to be ineffective weight management tool. We also recommend maintaining adequate protein intake and muscle composition, 1.5mg/kg This however has to be coupled with lifestyle intervention as well as laboratory data and EKG monitoring. It is impossible to know how a person will tolerate complete meal replacement. The side effects of meal replacement and weight loss could include syncopal attacks, dizziness, gallstones, potential cholecystectomy, possible heart attack and even . The benefits of meal replacement would be potential weight loss but no guarantees can be made. Meal replacement products are not covered by insurance. Once the patient has bought these products we cannot return them B. Lifestyle management which includes several strategies as below 1. Eat a low carbohydrate good fat good protein diet. Eliminate refined carbohydrates from the diet. Continue blood sugar and sugared beverages. Eat local organic when possible. Cook your own meals. Read food labels. None about healthy snacks. Portion control and food with low glycemic index 2. Exercise regularly. Try to get at least 6000 steps a day. Use a predominant to track activity level. Consider using apps like [employer], [employer], lose it, stick as needed for self-monitoring and weight management. Consider group exercises. Consider hiring a personal lines account manager. Regular exercise is giron to sustainable health and prevents as a buffer against weight regain 3. Sleep is most important for healing. Tried to sleep at least 8 hours a night. A good quality sleep needs a sleep ritual with ideal room temperature of around 68. It might help to take a shower and have no electronics in the room and sleep in a very dark room without artificial light. Start her sleep routine and get up early in the morning and go to bed on time 4. Make a social connection. Surround yourself with positive people with positive energy. Connect with friends and family. 5. Get into the habit of meditating and mindfulness while doing everything. 6. Go outside and connect with nature. C. Prescription medications Patient was educated on the use of prescription medications for medical weight loss. This is a growing list and includes phentermine, Topamax,Qsymia, contrave, belviq and saxenda, wegovy All prescription medications could have side effects including but not limited to kidney stones, seizure disorder cardiac arrhythmias heart attack pancreatitis etc. etc.. Patient was encouraged to read the prescription insert and have coaching with their pharmacist and make an informed decision about taking medication and know that these medications are being prescribed with good intentions and we do not know how a patient would react to her medication. Sudden medications are FDA approved for weight loss and there is also off label use depending on patient's inability to afford medications in an attempt to lose weight D. Behavioral counseling was done to establish a relationship between food and an mood. Patient was provided information about local counseling and psychiatry and Dr Carcamo at [facility]. We would like to cover regular topics and build on low glycemic eating exercise mindful eating, using yoga and meditation along with deep breathing and connecting with friends and family. E. MASS PAT reviewed, Patient's current medications were reviewed and opinion was given on medication that can cause weight gain and can be substituted F. Patient was assessed for risk with obesity including and not limiting to atherosclerosis heart disease stroke kidney disease, restrictive lung disease, irritable bowel syndrome and overall mortality. Risk of developing prediabetes diabetes and metabolic syndrome was discussed G. Therapeutic plan: We have decided to make therapeutic plan which would include choosing wisely on calories restricting portion getting active, tracking weight, getting good quality sleep and working on time management H. Patient will follow up in (4) weeks for weight management Of note, some information is being carried forward from prior records for informational purposes only and is being cited so that efficiency, safety and quality of the patient's care is not compromised This note was prepared using voice recognition software and direct typing Please excuse inadvertent director of instrumental music or typing errors, or uncorrected word substitutions Although every attempt has been made by the provider to proofread this document, occasional misspellings and typographical errors may still be present Due to the previous pandemic, and the use of personal protective equipment (PPE) This may decrease voice recognition accuracy Inadvertent director of instrumental music errors may occur PLAN OF TREATMENT Medication Medication Name Sig Start Date Stop Date Notes Zepbound 5 MG/0.5ML 5mg Subcutaneous weekly for 30 days Zepbound 2.5 MG/0.5ML 2.5 mg weekly Subc utaneous Weekly for 30 days Next Appt Details Provider Name:DICK YOST , 10/24/2024 09:00:00 AM, [address], [address], [place], [address], Provider Name:IMELDA RENNER, 11/21/2024 09:30:00 AM, [address], [address], [place], [address], Progress Notes * Natalie BHAGATOB:[birth year] (44 yo F)Acc No.[id number]:07/25/2024 Patient:??Kelsey BHAGAT Provider:??IMELDA RENNER NP :1980?Age:44 Y?Sex:Fe male Date:07/25/2024 Address:[address] [place] [address], [facility] [id number] Subjective: * Chief Complaints: * ?1. Pt seen in office f or wt mgt f/u visit with [facility].. * HPI: ?Constitutional:? Patient is here today for a weight management f/u visit ?Patient seen and examined. ? Full past medical history, social history, family history, ?allergies and current medications were reviewed and updated. ?Body composition analysis reviewed today, ?Including review of body fat, water and skeletal muscle composition ?Caloric energy expenditure discussed, weight circumference, visceral adiposity ?we discussed the importance of protein calorie nutrition, maintaning muscle mass, vit b12, biotin, iron ?while on GLP-1 medications, dual incretins, appetitite suppressants ?Patient denies any known personal history ? or family history of medullary thyroid cancer, ?multiple endocrine neoplasia, intestinal obstruction, ?pancreatitis or other gastrointestinal issues ?#Weight Management ?07/25/2024 ?started on Zepbound 2.5mg x 7 weeks ?interested in increasing to 5mg ?tolerating well no issues ?utilizing plant based proteins, shakes, etc ?losing fat mass, muscle mass stable ?07/25/2024, Weight 170lbs , BMI 29 (-14lbs) ?05/23/2024: Weight 184 lbs, BMI 30: ?Patient referred to us from social media and [employer]. 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 ?Highest weight: 184 lbs ?Lowest weight: 150 lbs ?Goal weight: 140 lbs ?PMH: ?[place] (2017) - reports she had a blood clot. Caused by stress. No atherosclerosis found. ?Venous sinus thrombosis sedcondary to control pills (2008) ?ASA 81 mg ?Rosuvastatin 40mg every day ?Topiramate ?Botox shots (for migraines) ?Sees cardiology annually. Past [place] ?[place] ANN screening/[facility]/[place]. Denies snoring. No concern for MARY ANN per pt. ?PCP: [facility] . Sees regularly. ?Metabolic workup: Had labs done through [facility] ?05/2024 ?TSH 3.64 ?CBC stable ?Renal function, Lytes, LFT stable ?Total Chol 137, LDL 183 ?Has an echocardiogram every year with her tap out operator. ?Most recent was January 2024 through [facility]. ?Diet: She does not like to cook. [...] use and recreational drug use. * Medications:??Taking Topiram ate 100 MG Tablet 1 tablet Orally Once a day , Taking Venlafaxine HCl 75 MG Tablet 1 tablet with food Orally Once a day , Taking Famotidine 40 MG Tablet as directed Orally , Taking Aspirin 81 81 MG Tablet Delayed Release 1 tablet Orally Once a day , Taking Zepbound 2.5 MG/0.5ML Solution Auto-injector 2.5 mg weekly Subcutaneous Weekly , Medication List reviewed and reconciled with the patient * Allergies:??Morphine: anaphy laxis. Objective: * Vitals:??HR:82/min, BP:136/8 6mm Hg, Wt:170lbs, BMI:29.18Index, Ht: 64 in, Oxygen sat %:96%. * Examination: ?General Examination: ?GENERAL APPEARANCE:??in no [...] * Assessment: 1.??Overweight - E66.3 (Prim lucretia)??2.??BMI 29.0-29.9,adult - Z68.29??3.??Dietary counseling and surveillance - Z71.3??4.??Other hyperlipidemia - E78.49??5.??Past myocardial infarction - I25.2??6.??Migraine without status migrainosus, not intractable, unspecified migraine type - G43.909?? #Weight Management 07/25/2024 thriving track down echo report from prime candidate for dual incretin incr to 5mg Zbound Total time spent today was 30 minutes of which greater than 50% was spent on coordinating and counseling Patient has been found to be overweight with a BMI of (29). Patient has overweight class per BMI standards We are a board certified obesity and weight management practice Patient has trialed behavioral modification, dietary restrictions and exercise for a minimum of 6 months The most recent [place] [employer] of clinical endocrinologists and [place] [employer]in[employer] guidelines recommend patients who [...] mentioned above and not solely appetite suppression. We have discussed the mechanism of GLP-1's/GIP, dual incretins I think this would be fantastic option for her given her metabolic workup and body composition We have discussed the risks and benefits and side effects including/and not limited to Sarcopenia, intestinal obstruction, constipation, nausea, lethargy, headache Discussed importance of protein consumption for muscle maintenance as well as strength and resistance training ,probiotics, B12 complex biotin , iron and other nutrients, To help avoid telogen effluvium There is no history of medullary thyroid cancer or multiple endocrine neoplasia There is also no history of cardiovascular disease, hypertension, palpitations, or arrhythmias In the setting of potential stimulant/amphetamine use such as phentermine We have also discussed risks and benefits, and the use of compounded medications to help offset the national shortages as well as financial implications vs trade name drugs GLP must be discontinued upon initiation We have discussed the lifelong requirement of nutritional supplementation And adherence to an exercise regimen as well as importance We did discuss the neurohormonal changes that are occurring with these medications and Need for long-term Continued usage The patient understands and agrees Patient was reassured and welcomed to the practice. We discussed that we stress a hollistic medical approach with emphasis on lifestyle modification. Patient was informed that a healthy lifestyle with exercise and good eating habits can help reduce his risk of medical complications. He is explained that obesity increases his risk of diabetes, cardiovascular disease, or organ damage. We spent a lot of time discussing the relationship between food, exercise, sleep, mental health and obesity. Patient was counseled on the importance EATING local, organic food when possible. Patient was educated on clean 15 and dirty dozen. I provided information about reading books called The Food Rules by Blaise Henderson and Eat Fat Get Lean by Dr Jack Oakes. Self education is important in the journey for weight management. Patient was offered diagnostic testing. We want to measure visceral adiposity, advanced body composition, adverse lipids, fatty acid balance, risk for heart disease and atherosclerosis, markers of inflammation and genetic susceptibility. Patient was counseled on weight management and was advised to lose weight using A. Meal Replacement Products We discussed the lifelong requirement of nutritional supplementation and adherence to an exercise regimen as well as importance of dietary f/u Patient was educated on the replacement products called optifast. This is a good way of taking fixed amount of calories. It has been shown in studies to be ineffective weight management tool. We also recommend maintaining adequate protein intake and muscle composition, 1.5mg/kg This however has to be coupled with lifestyle intervention as well as laboratory data and EKG monitoring. It is impossible to know how a person will tolerate complete meal replacement. The side effects of meal replacement and weight loss could include syncopal attacks, dizziness, gallstones, potential cholecystectomy, possible heart attack and even . The benefits of meal replacement would be potential weight loss but no guarantees can be made. Meal replacement products are not covered by insurance. Once the patient has bought these products we cannot return them B. Lifestyle management which includes several strategies as below 1. Eat a low carbohydrate good fat good protein diet. Eliminate refined carbohydrates from the diet. Continue blood sugar and sugared beverages. Eat local organic when possible. Cook your own meals. Read food labels. None about healthy snacks. Portion control and food with low glycemic index 2. Exercise regularly. Try to get at least 6000 steps a day. Use a predominant to track activity level. Consider using apps like [employer], myfitnesspal, lose it, stick as needed for self-monitoring and weight management. Consider group exercises. Consider hiring a personal lines account manager. Regular exercise is giron to sustainable health and prevents as a buffer against weight regain 3. Sleep is most important for healing. Tried to sleep at least 8 hours a night. A good quality sleep needs a sleep ritual with ideal room temperature of around 68. It might help to take a shower and have no electronics in the room and sleep in a very dark room without artificial light. Start her sleep routine and get up early in the morning and go to bed on time 4. Make a social connection. Surround yourself with positive people with positive energy. Connect with friends and family. 5. Get into the habit of meditating and mindfulness while doing everything. 6. Go outside and connect with nature. C. Prescription medications Patient was educated on the use of prescription medications for medical weight loss. This is a growing list and includes phentermine, Topamax,Qsymia, contrave, belviq and saxenda, wegovy All prescription medications could have side effects including but not limited to kidney stones, seizure disorder cardiac arrhythmias heart attack pancreatitis etc. etc.. Patient was encouraged to read the prescription insert and have coaching with their pharmacist and make an informed decision about taking medication and know that these medications are being prescribed with good intentions and we do not know how a patient would react to her medication. Sudden medications are FDA approved for weight loss and there is also off label use depending on patient's inability to afford medications in an attempt to lose weight D. Behavioral counseling was done to establish a relationship between food and an mood. Patient was provided information about local counseling and psychiatry and Dr Carcamo at [facility]. We would like to cover regular topics and build on low glycemic eating exercise mindful eating, using yoga and meditation along with deep breathing and connecting with friends and family. E. MASS PAT reviewed, Patient's current medications were reviewed and opinion was given on medication that can cause weight gain and can be substituted F. Patient was assessed for risk with obesity including and not limiting to atherosclerosis heart disease stroke kidney disease, restrictive lung disease, irritable bowel syndrome and overall mortality. Risk of developing prediabetes diabetes and metabolic syndrome was discussed G. Therapeutic plan: We have decided to make therapeutic plan which would include choosing wisely on calories restricting portion getting active, tracking weight, getting good quality sleep and working on time management H. Patient will follow up in (4) weeks for weight management Of note, some information is being carried forward from prior records for informational purposes only and is being cited so that efficiency, safety and quality of the patient's care is not compromised This note was prepared using voice recognition software and direct typing Please excuse inadvertent director of instrumental music or typing errors, or uncorrected word substitutions Although every attempt has been made by the provider to proofread this document, occasional misspellings and typographical errors may still be present Due to the previous pandemic, and the use of personal protective equipment (PPE) This may decrease voice recognition accuracy Inadvertent director of instrumental music errors may occur. Plan: * Treatment: 2.??Others?? Start Zepbound Solution Auto-injector, 2.5 MG/0.5ML, 2.5 mg weekly, Subcutaneous, Weekly, 30 days, 4 Pen Needle, Refills 3.? * Procedure Codes:??G0447 FCE- FCE BEHAVRL CNSL OBESITY 15 MIN, Modifiers: 59 * Images: Billing Information: * Visit Code:?? 64127 Office Visit, Est Pt., Level 4. * Procedure Codes:?? G0447 FCE-FCE BEHAVRL CNSL OBESITY 15 MIN. Modifiers: 59 * Sign off status: Completed true * Provider:??IMELDA RENNER NP Date:??07/07 History and Physical Notes * HPI (History of Present Illness) Category Sub-Category Detail Notes Category Not es Constitutional Patient is here today for a weight management f/u visit Patient seen and examined. Full past medical history, social history, family history, allergies and current medications were reviewed and updated. Body composition analysis reviewed today, Including review of body fat, water and skeletal muscle composition Caloric energy expenditure discussed, weight circumference, visceral adiposity we discussed the importance of protein calorie nutrition, maintaning muscle mass, vit b12, biotin, iron while on GLP-1 medications, dual incretins, appetitite suppressants Patient denies any known personal history or family history of medullary thyroid cancer, multiple endocrine neoplasia, intestinal obstruction, pancreatitis or other gastrointestinal issues #Weight Management 07/25/2024 started on Zepbound 2.5mg x 7 weeks interested in increasing to 5mg tolerating well no issues utilizing plant based proteins, shakes, etc losing fat mass, muscle mass stable 07/25/2024, Weight 170lbs , BMI 29 (-14lbs) 05/23/2024: Weight 184 lbs, BMI 30: Patient referred to us from social media and [employer]. 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 Highest weight: 184 lbs Lowest weight: 150 lbs Goal weight: 140 lbs PMH: [place] (2017) - reports she had a blood clot. Caused by stress. No atherosclerosis found. Venous sinus thrombosis sedcondary to control pills (2008) ASA 81 mg Rosuvastatin 40mg every day Topiramate Botox shots (for migraines) Sees cardiology annually. Past [place] M[place] ANN screening/[facility]/[place]. Denies snoring. No concern for MARY ANN per pt. PCP: [facility] . Sees regularly. Metabolic workup: Had labs done through [facility] 05/2024 TSH 3.64 CBC stable Renal function, Lytes, LFT stable Total Chol 137, LDL 183 Has an echocardiogram every year with her tap out operator. Most recent was January 2024 through [facility]. Diet: She does not like to cook. [...] General Examination GENERAL APPEARANCE: in no ac marisol distress, well developed, well nourished HEAD: normocephalic, [...]
--- OUTSIDE RECORDS SUMMARY | 2024-10-15 06:54 | XMS_ITS | Patient Health Record ---
Author Organization [facility] [place] [address] Care Team Providers Care Coping Machine Assembler Name Role Phone IMELDA RENNER Unavailable [phone] ALLERGIES Allergen (clinical drug ingredient) Drug/Non Drug Allergy documented on EMR Reaction Allergy Type Onset Date Status morphine Morphine anaphylaxis Drug Allergy Activ e REASON FOR REFERRAL Diagnosis 1 Obesity (E66.9) Referred Provider Specialty Unknown Referral Priority Routine MEDICATIONS Medication SIG (Take, Route, Fr equency, Duration) Notes Start Date End Date Status Zepbound 2.5 MG/0.5ML 2.5 mg weekly Subc utaneous Weekly for 30 days Active Topiramate 100 MG 1 tablet Orally Once a day Active Zepbound 5 MG/0.5ML 5mg Subcutaneous wee kly for 30 days Active Aspirin 81 81 MG 1 tablet Orally Once a day Active Venlafaxine HCl 75 MG 1 tablet with food Orally Once a day Active Famotidine 40 MG as directed Orally Active PROBLEMS Problem Type ICD Code Onset Dates Problem Status W/U Status Risk SNOMED Code Notes Problem Other obesity due to excess calories (E66.09) Active confirmed 837042029 Problem Overweight (E66.3) Active confirmed Ove rweight (788515878) Problem Migraine without status migrainosus, not intractable, unspecified migraine type (G43.909) Active confirmed 14288630 Problem Other hyperlipidemia (E78.49) Active confirmed 61212676 Problem Body mass index [BMI] 30.0-30.9, adult (Z68.30) Active confirmed 741783772 Problem Past myocardial infarction (I25.2) Active confirmed Old myoca rdial infarction (6498319) VITAL SIGNS Heart Rate 82 /min 09/26/2024 Oximetry 99 % 09/26/2024 Blood pressure diastolic 80 mm Hg 09/26/2024 Height 64 in 09/26/2024 Blood pressure systolic 124 mm Hg 09/26/2024 Weight 149 lbs 09/26/2024 BMI 25.57 kg/m2 09/26/2024 Encounters Encounter Location Date Provider Diagnosis [place] [id number] [address] 05/23/2024 IMELDA RENNER Dietary counseling a nd surveillance Z71.3 ; Other obesity due to excess calories E66.09 ; Body mass index [BMI] 30.0-30.9, adult Z68.30 ; Other hyperlipidemia E78.49 ; Past myocardial infarction I25.2 and Migraine without status migrainosus, not intractable, unspecified migraine type G43.909 [place] [address] [address] 07/25/2024 IMELDA RENNER Overweight E66.3 ; [place] 29.0-29.9,adult Z68.29 ; Dietary counseling and surveillance Z71.3 ; Other hyperlipidemia E78.49 ; Past myocardial infarction I25.2 and Migraine without status migrainosus, not intractable, unspecified migraine type G43.909 [place] [address] [address] 09/26/2024 IMELDA RENNER Overweight E66.3 ; [place] 25.0-25.9,adult Z68.25 ; Dietary counseling and surveillance Z71.3 ; Other hyperlipidemia E78.49 ; Past myocardial infarction I25.2 and Migraine without status migrainosus, not intractable, unspecified migraine type G43.909 [place] [address] [address] 2024 IMELDA RENNER ASSESSMENTS Encounter Date Diagnosis Assessment Notes Treatment Notes Treatment Clinical Notes Section Notes 05/23/2024 Other obesity due to excess calories (ICD-10 - E66.09) track down echo report from prime candidate for dual incretin start 2.5mg Zbound Total time spent today was 60 minutes of which greater than 50% was spent on coordinating and counseling Patient has been found to be obese with a BMI of (30). Patient has class (1) obesity. We are a board certified obesity and weight management practice Patient has trialed behavioral modification, dietary restrictions and exercise for a minimum of 6 months The most recent [place] [employer] clinical endocrinologists and [place] [employer] guidelines recommend patients who [...] track activity level. Consider using apps like [employer] exceEmbarklyise, myGAP Minerspal, lose it, stick as needed for self-monitoring and weight management. Consider group exercises. Consider hiring a personal care attendant. Regular exercise is giron to sustainable health [...] counseling and psychiatry and Dr Carcamo at [facility]. We would like to cover regular topics [...] software and direct typing Please excuse inadvertent piano assembler or typing errors, or uncorrected word substitutions Although every attempt has been made by the provider to proofread this document, occasional misspellings and typographical errors may still be present Due to the previous pandemic, and the use of personal protective equipment (PPE) This may decrease voice recognition accuracy Inadvertent piano assembler errors may occur 05/23/2024 Dietary counseling and surveillance (ICD-10 - Z71.3) track down echo report from prime candidate for dual incretin start 2.5mg Zbound Total time spent today was 60 minutes of which greater than 50% was spent on coordinating and counseling Patient has been found to be obese with a BMI of (30). Patient has class (1) obesity. We are a board certified obesity and weight management practice Patient has trialed behavioral modification, dietary restrictions and exercise for a minimum of 6 months The most recent [place] [employer] clinical endocrinologists and [place] [employer] guidelines recommend patients who [...] track activity level. Consider using apps like [employer], myfitnesspal, lose it, stick as needed for self-monitoring and weight management. Consider group exercises. Consider hiring a personal care attendant. Regular exercise is giron to sustainable health [...] counseling and psychiatry and Dr Carcamo at [facility]. We would like to cover regular topics [...] software and direct typing Please excuse inadvertent piano assembler or typing errors, or uncorrected word substitutions Although every attempt has been made by the provider to proofread this document, occasional misspellings and typographical errors may still be present Due to the previous pandemic, and the use of personal protective equipment (PPE) This may decrease voice recognition accuracy Inadvertent piano assembler errors may occur 09/26/2024 Overweight (ICD-10 - E66.3) #Weight Management [...] minimum of 6 months The most recent [place] [employer] endocrinologists and [place] [employer] guidelines recommend patients who [...] software and direct typing Please excuse inadvertent piano assembler or typing errors, or uncorrected word substitutions Although every attempt has been made by the provider to proofread this document, occasional misspellings and typographical errors may still be present Due to the previous pandemic, and the use of personal protective equipment (PPE) This may decrease voice recognition accuracy Inadvertent piano assembler errors may occur 09/26/2024 BMI 25.0-25.9,adult (ICD-10 [...] minimum of 6 months The most recent [place] [employer] clinical endocrinologists and [place] [employer] guidelines recommend patients who [...] software and direct typing Please excuse inadvertent piano assembler or typing errors, or uncorrected word substitutions Although every attempt has been made by the provider to proofread this document, occasional misspellings and typographical errors may still be present Due to the previous pandemic, and the use of personal protective equipment (PPE) This may decrease voice recognition accuracy Inadvertent piano assembler errors may occur 07/25/2024 Overweight (ICD-10 - E66.3) #Weight Management [...] minimum of 6 months The most recent [place] [employer] clinical endocrinologists and [place] [employer] guidelines recommend patients who [...] track activity level. Consider using apps like [employer], AMES Technologypal, lose it, stick as needed for self-monitoring and weight management. Consider group exercises. Consider hiring a personal care attendant. Regular exercise is giron to sustainable health [...] counseling and psychiatry and Dr Carcamo at [facility]. We would like to cover regular topics [...] software and direct typing Please excuse inadvertent piano assembler or typing errors, or uncorrected word substitutions Although every attempt has been made by the provider to proofread this document, occasional misspellings and typographical errors may still be present Due to the previous pandemic, and the use of personal protective equipment (PPE) This may decrease voice recognition accuracy Inadvertent piano assembler errors may occur 07/25/2024 BMI 29.0-29.9,adult (ICD-10 [...] minimum of 6 months The most recent [place] [employer] clinical endocrinologists and [place] [employer] guidelines recommend patients who [...] track activity level. Consider using apps like [employer], myfitLendMeYourLiteracypal, lose it, stick as needed for self-monitoring and weight management. Consider group exercises. Consider hiring a personal care attendant. Regular exercise is giron to sustainable health [...] counseling and psychiatry and Dr Carcamo at [facility]. We would like to cover regular topics [...] software and direct typing Please excuse inadvertent piano assembler or typing errors, or uncorrected word substitutions Although every attempt has been made by the provider to proofread this document, occasional misspellings and typographical errors may still be present Due to the previous pandemic, and the use of personal protective equipment (PPE) This may decrease voice recognition accuracy Inadvertent piano assembler errors may occur 07/25/2024 Dietary counseling and [...] minimum of 6 months The most recent [place] [employer] of clinical endocrinologists and [place] [employer] guidelines recommend patients who [...] track activity level. Consider using apps like [employer], myfitnesspal, lose it, stick as needed for self-monitoring and weight management. Consider group exercises. Consider hiring a personal care attendant. Regular exercise is giron to sustainable health [...] counseling and psychiatry and Dr Carcamo at [facility]. We would like to cover regular topics [...] software and direct typing Please excuse inadvertent piano assembler or typing errors, or uncorrected word substitutions Although every attempt has been made by the provider to proofread this document, occasional misspellings and typographical errors may still be present Due to the previous pandemic, and the use of personal protective equipment (PPE) This may decrease voice recognition accuracy Inadvertent piano assembler errors may occur 09/26/2024 Dietary counseling and [...] minimum of 6 months The most recent [place] [employer] clinical endocrinologists and [place] [employer] guidelines recommend patients who [...] software and direct typing Please excuse inadvertent piano assembler or typing errors, or uncorrected word substitutions Although every attempt has been made by the provider to proofread this document, occasional misspellings and typographical errors may still be present Due to the previous pandemic, and the use of personal protective equipment (PPE) This may decrease voice recognition accuracy Inadvertent piano assembler errors may occur 05/23/2024 Body mass index [BMI] 30.0-30.9, adult (ICD-10 - Z68.30) track down echo report from prime candidate for dual incretin start 2.5mg Zbound Total time spent today was 60 minutes of which greater than 50% was spent on coordinating and counseling Patient has been found to be obese with a BMI of (30). Patient has class (1) obesity. We are a board certified obesity and weight management practice Patient has trialed behavioral modification, dietary restrictions and exercise for a minimum of 6 months The most recent [place] [employer] of clinical endocrinologists and [place] [employer] guidelines recommend patients who [...] track activity level. Consider using apps like [employer], myfitnesspal, lose it, stick as needed for self-monitoring and weight management. Consider group exercises. Consider hiring a personal care attendant. Regular exercise is giron to sustainable health [...] counseling and psychiatry and Dr Carcamo at [facility]. We would like to cover regular topics [...] software and direct typing Please excuse inadvertent piano assembler or typing errors, or uncorrected word substitutions Although every attempt has been made by the provider to proofread this document, occasional misspellings and typographical errors may still be present Due to the previous pandemic, and the use of personal protective equipment (PPE) This may decrease voice recognition accuracy Inadvertent piano assembler errors may occur 05/23/2024 Other hyperlipidemia (ICD-10 - E78.49) track down echo report from prime candidate for dual incretin start 2.5mg Zbound Total time spent today was 60 minutes of which greater than 50% was spent on coordinating and counseling Patient has been found to be obese with a BMI of (30). Patient has class (1) obesity. We are a board certified obesity and weight management practice Patient has trialed behavioral modification, dietary restrictions and exercise for a minimum of 6 months The most recent [place] [employer] of clinical endocrinologists and [place] [employer] guidelines recommend patients who [...] track activity level. Consider using apps like Wave [employer], AMES Technologypal, lose it, stick as needed for self-monitoring and weight management. Consider group exercises. Consider hiring a personal care attendant. Regular exercise is giron to sustainable health [...] counseling and psychiatry and Dr Carcamo at [facility]. We would like to cover regular topics [...] software and direct typing Please excuse inadvertent piano assembler or typing errors, or uncorrected word substitutions Although every attempt has been made by the provider to proofread this document, occasional misspellings and typographical errors may still be present Due to the previous pandemic, and the use of personal protective equipment (PPE) This may decrease voice recognition accuracy Inadvertent piano assembler errors may occur 09/26/2024 Other hyperlipidemia (ICD-10 [...] minimum of 6 months The most recent [place] [employer] clinical endocrinologists and [place] [employer] guidelines recommend patients who [...] software and direct typing Please excuse inadvertent piano assembler or typing errors, or uncorrected word substitutions Although every attempt has been made by the provider to proofread this document, occasional misspellings and typographical errors may still be present Due to the previous pandemic, and the use of personal protective equipment (PPE) This may decrease voice recognition accuracy Inadvertent piano assembler errors may occur 07/25/2024 Other hyperlipidemia (ICD-10 [...] minimum of 6 months The most recent [place] [employer] of clinical endocrinologists and [place] [employer] guidelines recommend patients who [...] track activity level. Consider using apps like [employer], myfitnesspal, lose it, stick as needed for self-monitoring and weight management. Consider group exercises. Consider hiring a personal care attendant. Regular exercise is giron to sustainable health [...] counseling and psychiatry and Dr Carcamo at [facility]. We would like to cover regular topics [...] software and direct typing Please excuse inadvertent piano assembler or typing errors, or uncorrected word substitutions Although every attempt has been made by the provider to proofread this document, occasional misspellings and typographical errors may still be present Due to the previous pandemic, and the use of personal protective equipment (PPE) This may decrease voice recognition accuracy Inadvertent piano assembler errors may occur 07/25/2024 Past myocardial infarction [...] minimum of 6 months The most recent [place] [employer] of clinical endocrinologists and [place] [employer] guidelines recommend patients who [...] track activity level. Consider using apps like Wave [employer], myfitLendMeYourLiteracypal, lose it, stick as needed for self-monitoring and weight management. Consider group exercises. Consider hiring a personal care attendant. Regular exercise is giron to sustainable health [...] counseling and psychiatry and Dr Carcamo at [facility]. We would like to cover regular topics [...] software and direct typing Please excuse inadvertent piano assembler or typing errors, or uncorrected word substitutions Although every attempt has been made by the provider to proofread this document, occasional misspellings and typographical errors may still be present Due to the previous pandemic, and the use of personal protective equipment (PPE) This may decrease voice recognition accuracy Inadvertent piano assembler errors may occur 09/26/2024 Past myocardial infarction [...] minimum of 6 months The most recent [place] [employer] of clinical endocrinologists and [place] [employer] guidelines recommend patients who [...] software and direct typing Please excuse inadvertent piano assembler or typing errors, or uncorrected word substitutions Although every attempt has been made by the provider to proofread this document, occasional misspellings and typographical errors may still be present Due to the previous pandemic, and the use of personal protective equipment (PPE) This may decrease voice recognition accuracy Inadvertent piano assembler errors may occur 05/23/2024 Past myocardial infarction (ICD-10 - I25.2) track down echo report from prime candidate for dual incretin start 2.5mg Zbound Total time spent today was 60 minutes of which greater than 50% was spent on coordinating and counseling Patient has been found to be obese with a BMI of (30). Patient has class (1) obesity. We are a board certified obesity and weight management practice Patient has trialed behavioral modification, dietary restrictions and exercise for a minimum of 6 months The most recent [place] [employer] of clinical endocrinologists and [place] [employer] guidelines recommend patients who [...] track activity level. Consider using apps like [employer], myfitnesspal, lose it, stick as needed for self-monitoring and weight management. Consider group exercises. Consider hiring a personal care attendant. Regular exercise is giron to sustainable health [...] counseling and psychiatry and Dr Carcamo at [facility]. We would like to cover regular topics [...] software and direct typing Please excuse inadvertent piano assembler or typing errors, or uncorrected word substitutions Although every attempt has been made by the provider to proofread this document, occasional misspellings and typographical errors may still be present Due to the previous pandemic, and the use of personal protective equipment (PPE) This may decrease voice recognition accuracy Inadvertent piano assembler errors may occur 05/23/2024 Migraine without status migrainosus, not intractable, unspecified migraine type (ICD-10 - G43.909) track down echo report from prime candidate for dual incretin start 2.5mg Zbound Total time spent today was 60 minutes of which greater than 50% was spent on coordinating and counseling Patient has been found to be obese with a BMI of (30). Patient has class (1) obesity. We are a board certified obesity and weight management practice Patient has trialed behavioral modification, dietary restrictions and exercise for a minimum of 6 months The most recent [place] [employer] of clinical endocrinologists and [place] [employer] guidelines recommend patients who [...] track activity level. Consider using apps like [employer], myfitnesspal, lose it, stick as needed for self-monitoring and weight management. Consider group exercises. Consider hiring a personal care attendant. Regular exercise is giron to sustainable health [...] counseling and psychiatry and Dr Carcamo at [facility]. We would like to cover regular topics [...] software and direct typing Please excuse inadvertent piano assembler or typing errors, or uncorrected word substitutions Although every attempt has been made by the provider to proofread this document, occasional misspellings and typographical errors may still be present Due to the previous pandemic, and the use of personal protective equipment (PPE) This may decrease voice recognition accuracy Inadvertent piano assembler errors may occur 09/26/2024 Migraine without status [...] minimum of 6 months The most recent [place] [employer] of clinical endocrinologists and [place] [employer] guidelines recommend patients who [...] software and direct typing Please excuse inadvertent piano assembler or typing errors, or uncorrected word substitutions Although every attempt has been made by the provider to proofread this document, occasional misspellings and typographical errors may still be present Due to the previous pandemic, and the use of personal protective equipment (PPE) This may decrease voice recognition accuracy Inadvertent piano assembler errors may occur 07/25/2024 Migraine without status [...] minimum of 6 months The most recent [place] [employer] of clinical endocrinologists and [place] [employer] guidelines recommend patients who [...] track activity level. Consider using apps like Wave [employer], Cont[employer] TechnologiesfitLendMeYourLiteracypal, lose it, stick as needed for self-monitoring and weight management. Consider group exercises. Consider hiring a personal care attendant. Regular exercise is giron to sustainable health [...] counseling and psychiatry and Dr Carcamo at [facility]. We would like to cover regular topics [...] software and direct typing Please excuse inadvertent piano assembler or typing errors, or uncorrected word substitutions Although every attempt has been made by the provider to proofread this document, occasional misspellings and typographical errors may still be present Due to the previous pandemic, and the use of personal protective equipment (PPE) This may decrease voice recognition accuracy Inadvertent piano assembler errors may occur PLAN OF TREATMENT Next Appt Details Provider Name:DICK MCCOYMATT , 10/24/2024 09:00:00 AM, [address], [address], [place], [address], Provider Name:IMELDA RENNER, 11/21/2024 09:30:00 AM, [address] [facility], [facility] [address], [place], [address], Insurance Providers Payer Name Payer Address Payer Phone Subscriber Number Group Number Insured Name Patient Relationship to Insured Coverage Start Date Coverage End Date [facility] [address] [place] [address] [id number] Kelsey Bhagat Self - patient is the insured MEDICAL (GENERAL) HISTORY Medical History History ICD Code asthma heart attack weight gain/loss migraines Surgical History Surgery Date(Month/Year) section 01/2007
== END ==
LOC: HO.CARD 09:19
PROVIDERS: PCP Internal Medicine; Visit Provider Internal Medicine Cardiovascular Disease
DX: I49.3 Ventricular premature depolarization (principal)
CPT/HCPCS: 93242

== ENCOUNTER → 2024-10-10 09:21 | Outpatient (BNV) | payer BC, SELFPAY | PROVIDERS: PCP Internal Medicine; Visit Provider Internal Medicine | DX: I49.3 Ventricular premature depolarization (principal) | CPT/HCPCS: 93244 ==

== ENCOUNTER 2025-02-06 16:35 | Emergency (ER) | payer OTHER, SELFPAY ==
--- NOTE | ~2025-02-06 | CT_ITS ---
CLINICAL HISTORY: r flank pain ?stone CT abdomen and pelvis without contrast Comparison: None Findings: The lung bases are clear. Gallbladder is within normal limits. There are nonobstructing bilateral renal calculi, largest of which is in the inferior pole right kidney measuring 4 mm diameter. Mild right hydronephrosis. Proximal right ureteral calculus measuring 4 mm diameter. Solid organs are within normal limits otherwise. No bowel obstruction, pneumoperitoneum, or pneumatosis. Pelvic contents unremarkable. Normal appendix. No acute fracture. IMPRESSION: 1. Proximal right ureteral calculus associated with mild right hydronephrosis. 2. Nonobstructing bilateral renal calculi. This document has been electronically signed by: Eliezer Concepcion MD on 02/06/2025 17:38:42
--- NOTE | 2025-02-06 16:43 | ED.ABDPAIN ---
HPI - Abdominal Pain General Chief Complaint: Abdominal Pain Stated Complaint: abd pain Time Seen by Provider: 02/06/25 16:43 Source: patient Mode of arrival: ambulatory Limitations: no limitations History of Present Illness ED Provider: HPI narrative: Patient's history of kidney stone in the past complaining of sudden onset of sharp pain in the right flank area really did not do the right lower abdomen started 13:00 associated with nausea and vomiting no fever no chills no urinary symptoms Related Data Home Medications ?Medication ?Instructions ?Recorded ?Confirmed topiramate 100 mg tablet 100 mg PO BID 11/22/20 01/21/24 famotidine 40 mg tablet 40 mg PO DAILY 01/21/24 01/21/24 rosuvastatin 40 mg tablet 40 mg PO DAILY 01/21/24 01/21/24 venlafaxine 75 mg capsule,extended mg PO 01/21/24 01/21/24 release 24 hr Previous Rx's ?Medication ?Instructions ?Recorded aspirin 81 mg tablet,delayed 81 mg PO DAILY 90 days #90 tabs 06/12/22 release meclizine 25 mg tablet 25 mg PO TID PRN dizziness #20 tabs 08/13/23 amoxicillin 875 mg-potassium 1 tab PO Q12H 10 days #20 tabs 01/29/24 clavulanate 125 mg tablet cyclobenzaprine 5 mg tablet 5 mg PO TID PRN muscle spasm #10 05/06/24 tabs ibuprofen 600 mg tablet 600 mg PO Q6H PRN fever or pain 02/06/25 #30 tabs oxycodone 5 mg tablet 5 mg PO Q6H PRN pain #20 tabs 02/06/25 tamsulosin 0.4 mg capsule (Flomax) 0.4 mg PO BEDTIME #7 caps 02/06/25 Allergies Allergy/AdvReac Type Severity Reaction Status Date / Time Opioids - Morphine Analogues Allergy Severe ITCHING, Verified 02/06/25 17:04 HIVES. Review of Systems Review of Systems Yes all other systems are reviewed and are negative PMFSH Past Medical History Medical History HLD (hyperlipidemia) Dural venous sinus thrombosis NSTEMI (non-ST elevated myocardial infarction) Surgical History Hx of cardiac cath Hx of carpal tunnel repair Family History Family History Father No problems noted. Mother HTN (hypertension) Social History Social History Alcohol intake: never Patient Tobacco Use Status: Never used Tobacco Advance Directives: No Advance Directives Information Provided: No Physical Exam ED Vital Signs: Vital Signs - 24 hr 02/06/25 16:48 02/06/25 19:30 02/06/25 20:56 Temperature 98.1 F 98.2 F 98.2 F Pulse Rate 91 79 79 Respiratory Rate 16 20 20 Blood Pressure 142/86 H 113/60 113/60 Pulse Oximetry 100 100 100 Oxygen Delivery Method Room Air Room Air Room Air BMI result Body Mass Index 19.0 Appearance: Alert. Oriented X3. In moderate distress Eyes: No pallor or icterus ENT: Pharynx normal. Oral Mucosa moist Neck: Normal inspection. Neck supple. CVS: Normal heart rate and rhythm. Pulses normal. Respiratory: No respiratory distress. Equal air entry bilateral, no wheezing/rales/rhonchi Abdomen: Soft and nontender. Bowel sounds are present, no mass palpable, right CVA tenderness++ Skin: Skin warm and dry. Normal skin color. Normal skin turgor. Extremities: No lower extremity edema. No calf tenderness Neuro: Oriented X 3. No motor deficit. Medical Decision Making Medical Decision Making [facility] Narrative: Patient's right flank pain CT scan showed 4 mm proximal ureteric stone with hydronephrosis patient felt better after Toradol UA showed on a red cells will prescribe Flomax and ibuprofen for pain advised to follow up with urologist Lab Data [facility] Lab Attestation statement: I reviewed the patient's lab results. 02/06/25 17:35 02/06/25 17:35 Labs: Lab Results 02/06/25 02/06/25 Range/Units 17:35 19:50 WBC 9.7 (4.8-10.8) X10*3/uL RBC 4.48 (4.20-5.50) X10*6/uL Hgb 12.8 (12.0-16.0) g/dl Hct 38.3 (37.0-47.0) % MCV 85.5 (80.0-98.0) fL MCH 28.6 (27.0-33.0) pg MCHC 33.4 (31.0-35.0) g/dl RDW 13.5 (11.0-16.0) % Plt Count 357 (160-400) X10*3/uL MPV 10.2 (9.4-12.3) fL Immature Gran % (Auto) 0.3 (0.0-0.4) % Neut % (Auto) 76.2 H (45-73) % Lymph % (Auto) 18.0 L (20-40) % [place] % (Auto) 4.9 (2-11) % Eos % (Auto) 0.2 (0-4) % Baso % (Auto) 0.4 (0-2) % Lymph # (Auto) 1.7 (1.2-4.9) X10*3/uL [place] # (Auto) 0.5 (0.1-1.2) X10*3/uL Eos # (Auto) 0.0 (0.0-0.4) X10*3/uL Baso # (Auto) 0.0 (0.0-0.2) X10*3/uL Abs Immat Gran (auto) 0.03 (0.00-0.03) X10*3/uL Absolute Neuts (auto) 7.4 (2.0-8.3) x10*3/uL Absolute Nucleated RBC 0.000 (0.0-0.012) X10*3/uL Nucleated RBC % (auto) 0.0 (0.0-0.2) /100WBC Sodium 140 (135-145) mmol/L Potassium 4.2 (3.3-5.1) mmol/L Chloride 118 H (96-108) mmol/L Carbon Dioxide 17 L (22-29) mmol/L Anion Gap 9 L (12-20) BUN 12 (9-16) mg/dL Creatinine 0.96 (0.5-1.4) mg/dL Estim Creat Clear Calc 60.4 Estimated GFR > 60 Random Glucose 92 (60-115) mg/dL Calcium 9.4 (8.4-10.2) mg/dL Total Bilirubin 0.4 (0.0-1.0) mg/dL AST 41 H (5-31) U/L ALT 25 (0-31) U/L Alkaline Phosphatase 79 (39-117) U/L Total Protein 8.1 H (6.5-8.0) g/dL Albumin 4.3 (3.5-5.0) g/dL Beta HCG, Quant < 2 mIU/mL Urine Color Yellow Urine Appearance Clear Urine pH 7.0 (5.0-9.0) Ur Specific [place] <= 1.005 (1.005-1.025) Urine Protein Negative (Neg-Trace) mg/dL Urine Glucose (UA) Negative (Negative) mg/dL Urine Ketones Negative (Negative) mg/dL Urine Blood Moderate (2+) H (Negative) Urine Nitrite Negative (Negative) Ur Leukocyte Esterase Negative (Negative) Urine RBC 0-2 (0-2) /HPF Urine WBC 0-5 (0-5) /HPF Ur Squamous Epith Cells 0-2 (0-2) /HPF Urine Bacteria None Seen (None Seen) Hyaline Casts 0-2 (0-2) /LPF Independent Interpretation I performed an independent interpretation of an: CT Scan Radiology Impression Discussion of test interpretation with radiology: I have reviewed the radiologist's reading. Radiologist Impression: IMPRESSION: 1. Proximal right ureteral calculus associated with mild right hydronephrosis. 2. Nonobstructing bilateral renal calculi. This document has been electronically signed by: Eliezer Concepcion MD on 02/06/2025 17:38:42 Medications Administered Discontinued Medications Generic Name Dose Route Start Last Admin Trade Name Freq PRN Reason Stop Dose Admin Sodium Chloride 1,000 mls @ 999 mls/hr 02/06/25 16:48 02/06/25 20:39 Ns IV 02/06/25 17:48 Infused .Q1H1M ONE Infusion Ketorolac Tromethamine 30 mg 02/06/25 16:50 02/06/25 17:43 Ketorolac Tromethamine 30 Mg/Ml Vial IVPUSH 02/06/25 16:51 30 mg ONCE ONE Administration Ondansetron HCl 4 mg 02/06/25 16:50 02/06/25 17:43 Ondansetron Hcl 4 Mg/2 Ml Vial IVPUSH 02/06/25 16:51 4 mg ONCE ONE Administration Tamsulosin HCl 0.4 mg 02/06/25 19:40 02/06/25 20:39 Tamsulosin Hcl 0.4 Mg Capsule PO 02/06/25 19:41 0.4 mg ONCE ONE Administration Discharge Plan Discharge Clinical Impression: Calculus of kidney Patient Disposition: Home, Self-Care Instructions: Kidney Stones (ED), Low Oxalate Diet (ED) Additional Instructions: Drink plenty of fluids Pain medication as prescribed Flomax daily till you pass the stone Follow up with urologist Report to the ER if pain gets worse Prescriptions: New ibuprofen 600 mg tablet 600 mg PO Q6H PRN (Reason: fever or pain) Qty: 30 0RF tamsulosin [Flomax] 0.4 mg capsule 0.4 mg PO BEDTIME Qty: 7 0RF oxycodone 5 mg tablet 5 mg PO Q6H PRN (Reason: pain) Qty: 20 0RF Rx Instructions: Partial Fill upon patient request. No Action aspirin 81 mg tablet,delayed release (DR/EC) 81 mg PO DAILY 90 Days Qty: 90 3RF meclizine 25 mg tablet 25 mg PO TID PRN (Reason: dizziness) Qty: 20 0RF cyclobenzaprine 5 mg tablet 5 mg PO TID PRN (Reason: muscle spasm) Qty: 10 0RF amoxicillin-pot clavulanate 875-125 mg tablet 1 tab PO Q12H 10 Days Qty: 20 0RF topiramate 100 mg tablet 100 mg PO BID venlafaxine 75 mg capsule,extended release 24hr PO famotidine 40 mg tablet 40 mg PO DAILY rosuvastatin 40 mg tablet 40 mg PO DAILY Referrals: Sae Mazariegos MD [Physician] - 3 days Stand Alone Forms: Work/School Release Interventions: ED Discharge Assessment Last Done: 02/06/25 20:56 Discharge Date/Time: 02/06/25 20:57 Print Language: Indonesian
[2025-02-06 16:48] VITALS: BP 142/86; BP 150/100; PULSE 110; PULSE 91; RESP 16; TEMP 36.7; O2SAT 100; O2SAT 99; BMI 19.0
[2025-02-06 17:41] LABS: MANUAL DIFF FLAG NO
[2025-02-06 17:42] LABS: Basophils Percent Auto 0.4 % (0-2); Eosinophils Percent Auto 0.2 % (0-4); Hematocrit 38.3 % (37.0-47.0); Hemoglobin 12.8 g/dl (12.0-16.0); Imm Gran Abs Auto 0.03 X10*3/uL (0.00-0.03); Imm Gran Pct Auto 0.3 % (0.0-0.4); Lymphocytes Absolute Auto 1.7 X10*3/uL (1.2-4.9); Mean Corpuscular HGB Conc 33.4 g/dl (31.0-35.0); Mean Corpuscular Hemoglobin 28.6 pg (27.0-33.0); Mean Corpuscular Volume 85.5 fL (80.0-98.0); Mean Platelet Volume 10.2 fL (9.4-12.3); Monocytes Absolute Auto 0.5 X10*3/uL (0.1-1.2); Monocytes Percent Auto 4.9 % (2-11); Neutrophils Absolute Auto 7.4 x10*3/uL (2.0-8.3); Neutrophils Percent Auto 76.2 % (45-73); Platelet Count 357 X10*3/uL (160-400); Red Blood Count 4.48 X10*6/uL (4.20-5.50); Red Cell Distribution Width 13.5 % (11.0-16.0); White Blood Count 9.7 X10*3/uL (4.8-10.8)
[2025-02-06] MEDS: 0.9 % Sodium Chloride 1,000 ML 999 ML IV (17:42)
[2025-02-06] MEDS: ondansetron HCL 4 MG/2 ML VIAL IVPUSH (17:43)
[2025-02-06] MEDS: Ketorolac Tromethamine 30 MG/ML VIAL IVPUSH (17:43)
--- OUTSIDE RECORDS SUMMARY | 2025-02-06 17:51 | XMS_ITS ---
Author Organization [facility] [place] [address] Care Team Providers [employer] Lawyer Name Role Phone KORIJuanjose IMELDA Unavailable [phone] MEDICATIONS Medication SIG (Take, Route, Fr equency, Duration) Notes Start Date End Date Status Venlafaxine HCl 75 MG 1 tablet with food Orally Once a day Active Famotidine 40 MG as directed Orally Active Aspirin 81 81 MG 1 tablet Orally Once a day Active Wegovy 0.25 MG/0.5ML 0.25mg Subcutaneous weekly for 30 days Active Topiramate 100 MG 1 tablet Orally Once a day Active Zepbound 2.5 MG/0.5ML 2.5 mg weekly Subc utaneous Weekly for 30 days 02/06/2025 Active Encounters Encounter Location Date Provider Diagnosis [place] [address] [address] 02/06/2025 IMELDA RENNER Other hyperlipidemia E78.49 ; Migraine without status migrainosus, not intractable, unspecified migraine type G43.909 ; Past myocardial infarction I25.2 ; Dietary counseling and surveillance Z71.3 and BMI 21.0-21.9, adult Z68.21 ASSESSMENTS Encounter Date Diagnosis Assessment Notes Treatment Notes Treatment Clinical Notes Section Notes 02/06/2025 Other hyperlipidemia (ICD-10 - E78.49) #Weight Management 02/06/2025 Decrease Zepbound to 2.5mg every 2 weeks to maintain weight , 50% reduction Discussed increasing protein intake and add creatine for muscle maintenance Her BMI has normalized track down echo report from Total time [...] software and direct typing Please excuse inadvertent sales agent fire insurance or typing errors, or uncorrected word substitutions Although every attempt has been made by the provider to proofread this document, occasional misspellings and typographical errors may still be present Due to the previous pandemic, and the use of personal protective equipment (PPE) This may decrease voice recognition accuracy Inadvertent sales agent fire insurance errors may occur 02/06/2025 Migraine without status migrainosus, not intractable, unspecified migraine type (ICD-10 - G43.909) #Weight Management 02/06/2025 Decrease Zepbound to 2.5mg every 2 weeks to maintain weight , 50% reduction Discussed increasing protein intake and add creatine for muscle maintenance Her BMI has normalized track down echo report from Total time [...] software and direct typing Please excuse inadvertent sales agent fire insurance or typing errors, or uncorrected word substitutions Although every attempt has been made by the provider to proofread this document, occasional misspellings and typographical errors may still be present Due to the previous pandemic, and the use of personal protective equipment (PPE) This may decrease voice recognition accuracy Inadvertent sales agent fire insurance errors may occur 02/06/2025 Past myocardial infarction (ICD-10 - I25.2) #Weight Management 02/06/2025 Decrease Zepbound to 2.5mg every 2 weeks to maintain weight , 50% reduction Discussed increasing protein intake and add creatine for muscle maintenance Her BMI has normalized track down echo report from Total time [...] software and direct typing Please excuse inadvertent sales agent fire insurance or typing errors, or uncorrected word substitutions Although every attempt has been made by the provider to proofread this document, occasional misspellings and typographical errors may still be present Due to the previous pandemic, and the use of personal protective equipment (PPE) This may decrease voice recognition accuracy Inadvertent sales agent fire insurance errors may occur 02/06/2025 Dietary counseling and surveillance (ICD-10 - Z71.3) #Weight Management 02/06/2025 Decrease Zepbound to 2.5mg every 2 weeks to maintain weight , 50% reduction Discussed increasing protein intake and add creatine for muscle maintenance Her BMI has normalized track down echo report from Total time [...] software and direct typing Please excuse inadvertent sales agent fire insurance or typing errors, or uncorrected word substitutions Although every attempt has been made by the provider to proofread this document, occasional misspellings and typographical errors may still be present Due to the previous pandemic, and the use of personal protective equipment (PPE) This may decrease voice recognition accuracy Inadvertent sales agent fire insurance errors may occur 02/06/2025 BMI 21.0-21.9, adult (ICD-10 - Z68.21) #Weight Management 02/06/2025 Decrease Zepbound to 2.5mg every 2 weeks to maintain weight , 50% reduction Discussed increasing protein intake and add creatine for muscle maintenance Her BMI has normalized track down echo report from Total time [...] software and direct typing Please excuse inadvertent sales agent fire insurance or typing errors, or uncorrected word substitutions Although every attempt has been made by the provider to proofread this document, occasional misspellings and typographical errors may still be present Due to the previous pandemic, and the use of personal protective equipment (PPE) This may decrease voice recognition accuracy Inadvertent sales agent fire insurance errors may occur PLAN OF TREATMENT Medication Medication Name Sig Start Date Stop Date Notes Zepbound 2.5 MG/0.5ML 2.5 mg weekly Subc utaneous Weekly for 30 days 02/06/2025 Next Appt Details Provider Name:IMELDA RENNER, 03/20/2025 10:00:00 AM, [address], [address], [place], [address], Progress Notes * Natalie BHAGATOB:[birth year] (44 yo F)Acc No.[id number]:02/06/2025 Patient:??Kelsey BHAGAT Provider:??IMELDA RENNER NP :1980?Age:44 Y?Sex:Fe male Date:02/06/2025 Address:[address] [place] [address], [facility] Subjective: * Chief Complaints: * ? * HPI: ?Constitutional:? Patient is here today for a weight management f/u visit ?Patient seen and examined. ? Full past medical history, social history, family history, ?allergies and current medications were reviewed and updated. ?Body composition analysis reviewed today ?#Weight Management ?02/06/2025 ?Current weight 130lbs (-5lbs), fat mass -6lbs, muscle mass -1lb ?Currently Zepbound 5mg every 2 weeks ?Tolerating medication well ?Is doing resistance training with bands ?Patient has done quite well since May 2024, down over 50 pounds ?[employer] does cover Zepbound now ?Currently on 5 mg every 2 weeks ?We discussed maintenance dosing moving forward I do not want her losing any more weight her BMI is at 23 and her weight is at 130 pounds ?Will decrease dose by 50% ?Discussed low normal muscle mass ?utilizing plant based proteins, shakes, etc ?Discussed adding creatine ?disc incorporating strength/resistance training, muscle building activities ?PMH: [place] (2017) - reports she had a blood clot. Caused by stress. No atherosclerosis found. ?Venous sinus thrombosis sedcondary to control pills (2008) ?ASA 81 mg ?Rosuvastatin 40mg every day ?Topiramate ?Botox shots (for migraines) ?Sees cardiology annually ?Exercise: Not tracking steps daily. ?Walks a lot at work. Mows her lawn. Used to go to the gym 4x/week. ?Knows she needs to go back to the gym but hard to fit in with work and other life things. ?No weight bearing exercise. ?Non-smoker. Never smoked or used tobacco. ?ETOH use: no ETOH ?02/06/2025, Weight 130lbs, BMI 21.9 (-5lbs) ?11/21/2024, Weight 135lbs , BMI 23 (-5lbs) ?10/24/2024, Weight 140lbs , BMI 24 ?09/26/2024, Weight 149lbs , BMI 25 (-21lbs) ?07/25/2024, Weight 170lbs , BMI 29 (-14lbs) ?05/23/2024: Weight 184 lbs, BMI 30: ?Patient referred to us from social media and [employer]. 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 ?Highest weight: 184 lbs ?Lowest weight: 150 lbs ?Goal weight: 140 lbs ?[place] ANN screening/[facility]/[place]. Denies snoring. No concern for MARY ANN ?PCP: [facility] . Sees regularly. ?Metabolic workup: Had labs done through [facility] ?05/2024 ?TSH 3.64 ?CBC stable ?Renal function, Lytes, LFT stable ?Total Chol 137, LDL 183 ?Has an echocardiogram every year with her information systems project manager. ?Most recent was January 2024 through [facility]. * ROS:?All Other Systems:?Review of Systems (ROS)??All others negative except those mentioned in HPI.? * Medical History:?? * Medications:??Taking Wegovy 0.25 MG/0.5ML Solution Auto-injector 0.25mg Subcutaneous weekly , Taking Topiramate 100 MG Tablet 1 tablet Orally Once a day , Taking Venlafaxine HCl 75 MG Tablet 1 tablet with food Orally Once a day , Taking Famotidine 40 MG Tablet as directed Orally , Taking Aspirin 81 81 MG Tablet Delayed Release 1 tablet Orally Once a day Objective: * Examination: ?General Examination: ?GENERAL APPEARANCE:??in no [...] extremities, sensory exam intact.? Assessment: * Assessment: 1.??Other hyperlipidemia - E 78.49??2.??Migraine without status migrainosus, not intractable, unspecified migraine type - G43.909??3.??Past myocardial infarction - I25.2??4.??Dietary counseling and surveillance - Z71.3??5.??BMI 21.0-21.9, adult - Z68.21?? #Weight Management 02/06/2025 Decrease Zepbound to 2.5mg every 2 weeks to maintain weight , 50% reduction Discussed increasing protein intake and add creatine for muscle maintenance Her BMI has normalized track down echo report from Total time [...] software and direct typing Please excuse inadvertent sales agent fire insurance or typing errors, or uncorrected word substitutions Although every attempt has been made by the provider to proofread this document, occasional misspellings and typographical errors may still be present Due to the previous pandemic, and the use of personal protective equipment (PPE) This may decrease voice recognition accuracy Inadvertent sales agent fire insurance errors may occur. Plan: * Treatment: * Images: Billing Information: * Visit Code:?? 18830 Office Visit, Est Pt., Level 4. Modifiers: SA * Procedure Codes:?? * Sign off status: Completed true * Provider:??IMELDA RENNER NP Date:??02/2025 History and Physical Notes * HPI (History of Present Illness) Category Sub-Category Detail Notes Category Not es Constitutional Patient is here today for a weight management f/u visit Patient seen and examined. Full past medical history, social history, family history, allergies and current medications were reviewed and updated. Body composition analysis reviewed today #Weight Management 02/06/2025 Current weight 130lbs (-5lbs), fat mass -6lbs, muscle mass -1lb Currently Zepbound 5mg every 2 weeks Tolerating medication well Is doing resistance training with bands Patient has done quite well since May 2024, down over 50 pounds [employer] does cover Zepbound now Currently on 5 mg every 2 weeks We discussed maintenance dosing moving forward I do not want her losing any more weight her BMI is at 23 and her weight is at 130 pounds Will decrease dose by 50% Discussed low normal muscle mass utilizing plant based proteins, shakes, etc Discussed adding creatine disc incorporating strength/resistance training, muscle building activities PMH: [place] (2016) - reports she had a blood [...] or used tobacco. ETOH use: no ETOH 02/06/2025, Weight 130lbs, BMI 21.9 (-5lbs) 11/21/2024, Weight 135lbs , BMI 23 (-5lbs) [...] lbs Goal weight: 140 lbs MARY ANN screening/[facility]/[place]. Denies snoring. No concern for MARY ANN PCP: [facility] . Sees regularly. Metabolic workup: Had labs done through [facility] 05/2024 TSH 3.64 CBC stable Renal function, Lytes, LFT stable Total Chol 137, LDL 183 Has an echocardiogram every year with her information systems project manager. Most recent was January 2024 through [facility]. Examination Category Sub-Category Detail Notes Category Not [...]
--- OUTSIDE RECORDS SUMMARY | 2025-02-06 17:51 | XMS_ITS ---
Author Organization [facility] Address [address] [place] [address] Care Team Providers Care Rfid Specialist Name Role Phone IMELDA RENNER Unavailable [phone] REASON FOR VISIT FYI - Reason of no show Encounters Encounter Location Date Provider Diagnosis [address] [place] [address] 01/06/2025 IMELDA RENNER PLAN OF TREATMENT Next Appt Details Provider Name:IMELDA RENNER, 03/20/2025 10:00:00 AM, [address], [address], [place], [address], Progress Notes * Natalie BHAGATOB:[birth year] (44 yo F)Acc No.[id number]:01/06/2025 Patient:??Kelsey BHAGAT :1980?Age:44 Y?Sex:Fe male Address:[address], [place] [address] * true * Date:??
--- OUTSIDE RECORDS SUMMARY | 2025-02-06 17:51 | XMS_ITS | Patient Health Record ---
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 Name Role Phone IMELDA RENNER Unavailable [phone] MARTINJASSI PERKINS Unavailable [phone] DICK YOST Unavailable [phone] ALLERGIES Allergen (clinical drug ingredient) Drug/Non Drug Allergy documented on EMR Reaction Allergy Type Onset Date Status morphine Morphine anaphylaxis Drug Allergy Activ e REASON FOR REFERRAL Diagnosis 1 Obesity (E66.9) Referred Provider Specialty Unknown General Notes NOTIFIED PATIENT VIA DOCTIBLE THAT NEW REFERRAL NEEDS TO BE OBTAINED Referral Priority Routine MEDICATIONS Medication SIG (Take, Route, Fr equency, Duration) Notes Start Date End Date Status Venlafaxine HCl 75 MG 1 tablet with food Orally Once a day Active Famotidine 40 MG as directed Orally Active Aspirin 81 81 MG 1 tablet Orally Once a day Active Zepbound 2.5 MG/0.5ML 2.5 mg weekly Subc utaneous Weekly for 30 days 02/06/2025 Active Wegovy 0.25 MG/0.5ML 0.25mg Subcutaneous weekly for 30 days Active Topiramate 100 MG 1 tablet Orally Once a day Active PROBLEMS Problem Type ICD Code Onset Dates Problem Status W/U Status Risk SNOMED Code Notes Problem Other obesity due to excess calories (E66.09) Active confirmed 606793089 Problem Overweight (E66.3) Active confirmed Overweight (358131020) Problem Migraine without status migrainosus, not intractable, unspecified migraine type (G43.909) Active confirmed Migraine (44882112) Problem Other hyperlipidemia (E78.49) Active confirmed 57589276 Problem Body mass index [BMI] 30.0-30.9, adult (Z68.30) Active confirmed 329036271 Problem Depression with anxiety (F41.8) Active confirmed 262640109 Problem GERD without esophagitis (K21.9) Active confirmed 535337766 Problem Elevated LDL cholesterol level (E78.00) Active confirmed 179768266 Problem Past myocardial infarction (I25.2) Active confirmed Old myocardial infarction (7657340) Problem Episodic migraine (G43.909) Active confirmed [id number] VITAL SIGNS Heart Rate 67 /min 11/21/2024 Blood pressure diastolic 68 mm Hg 11/21/2024 Oximetry 99 % 11/21/2024 Height 64 in 11/21/2024 Blood pressure systolic 108 mm Hg 11/21/2024 Weight 135 lbs 11/21/2024 BMI 23.17 kg/m2 11/21/2024 Encounters Encounter Location Date Provider Diagnosis [address] 01/02/2025 IMELDA RENNER Other hyperlipidemia E78.49 ; Migraine without status migrainosus, not intractable, unspecified migraine type G43.909 ; Past myocardial infarction I25.2 ; Dietary counseling and surveillance Z71.3 and BMI 23.0-23.9, adult Z68.23 [place] [address] [address] 02/06/2025 IMELDA RENNER Other hyperlipidemia E78.49 ; Migraine without status migrainosus, not intractable, unspecified migraine type G43.909 ; Past myocardial infarction I25.2 ; Dietary counseling and surveillance Z71.3 and BMI 21.0-21.9, adult Z68.21 [place] [address] 05/23/2024 IMELDA RENNER Dietary counseling a nd surveillance Z71.3 ; Other obesity due to excess calories E66.09 ; Body mass index [BMI] 30.0-30.9, adult Z68.30 ; Other hyperlipidemia E78.49 ; Past myocardial infarction I25.2 and Migraine without status migrainosus, not intractable, unspecified migraine type G43.909 [place] [address] 07/25/2024 IMELDA RENNER Overweight E66.3 ; B RI 29.0-29.9,adult Z68.29 ; Dietary counseling and surveillance Z71.3 ; Other hyperlipidemia E78.49 ; Past myocardial infarction I25.2 and Migraine without status migrainosus, not intractable, unspecified migraine type G43.909 [place] [address] [address] 09/26/2024 IMELDA RENNER Overweight E66.3 ; B RI 25.0-25.9,adult Z68.25 ; Dietary counseling and surveillance Z71.3 ; Other hyperlipidemia E78.49 ; Past myocardial infarction I25.2 and Migraine without status migrainosus, not intractable, unspecified migraine type G43.909 [place] [address] [address] 10/24/2024 DICK YOST Overweight E66.3 ; B RI 24.0-24.9, adult Z68.24 ; Nutritional counseling Z71.3 ; Elevated LDL cholesterol level E78.00 ; GERD without esophagitis K21.9 ; Episodic migraine G43.909 and Depression with anxiety F41.8 [place] [address] [address] 11/21/2024 IMELDA RENNER Other hyperlipidemia E78.49 ; Migraine without status migrainosus, not intractable, unspecified migraine type G43.909 ; Past myocardial infarction I25.2 ; Dietary counseling and surveillance Z71.3 and BMI 23.0-23.9, adult Z68.23 [place] [address] [address] 2024 IMELDA RENNER [place] [address] [address] 11/11/2024 IMELDA [address] [address] 11/14/2024 JASSI MARTIN [place] [address] [address] 01/05/2025 [address]DA [address] [address] 01/06/2025 IMELDA RENNER ASSESSMENTS Encounter Date Diagnosis Assessment [...] minimum of 6 months The most recent [place] [employer] clinical endocrinologists and [place] [employer] guidelines recommend patients who [...] or arrhythmias In the setting of potential stimulant/amphetamin e use such as phentermine We have also [...] track activity level. Consider using apps like [employer] exceLifestyle Airise, myfitnesspal, lose it, stick as needed for self-monitoring and weight management. Consider group exercises. Consider hiring a personal care worker. Regular exercise is giron to sustainable health [...] counseling and psychiatry and Dr Carcamo at [facility]. We would like to cover regular topics [...] software and direct typing Please excuse inadvertent ramp agent or typing errors, or uncorrected word substitutions Although every attempt has been made by the provider to proofread this document, occasional misspellings and typographical errors may still be present Due to the previous pandemic, and the use of personal protective equipment (PPE) This may decrease voice recognition accuracy Inadvertent ramp agent errors may occur 05/23/2024 Dietary counseling and [...] minimum of 6 months The most recent [place] [employer] clinical endocrinologists and [place] [employer] guidelines recommend patients who [...] or arrhythmias In the setting of potential stimulant/amphetamin e use such as phentermine We have also [...] track activity level. Consider using apps like [employer], myfitnesspal, lose it, stick as needed for self-monitoring and weight management. Consider group exercises. Consider hiring a personal care worker. Regular exercise is giron to sustainable health [...] counseling and psychiatry and Dr Carcamo at [facility]. We would like to cover regular topics [...] software and direct typing Please excuse inadvertent ramp agent or typing errors, or uncorrected word substitutions Although every attempt has been made by the provider to proofread this document, occasional misspellings and typographical errors may still be present Due to the previous pandemic, and the use of personal protective equipment (PPE) This may decrease voice recognition accuracy Inadvertent ramp agent errors may occur 07/25/2024 Overweight (ICD-10 - [...] minimum of 6 months The most recent [place] [employer] of clinical endocrinologists and [place] [employer] guidelines recommend patients who [...] or arrhythmias In the setting of potential stimulant/amphetamin e use such as phentermine We have also [...] track activity level. Consider using apps like [employer], ClickEquationspal, lose it, stick as needed for self-monitoring and weight management. Consider group exercises. Consider hiring a personal care worker. Regular exercise is giron to sustainable health [...] counseling and psychiatry and Dr Carcamo at [facility]. We would like to cover regular topics [...] software and direct typing Please excuse inadvertent ramp agent or typing errors, or uncorrected word substitutions Although every attempt has been made by the provider to proofread this document, occasional misspellings and typographical errors may still be present Due to the previous pandemic, and the use of personal protective equipment (PPE) This may decrease voice recognition accuracy Inadvertent ramp agent errors may occur 07/25/2024 BMI 29.0-29.9,adult (ICD-10 [...] minimum of 6 months The most recent [place] [employer] clinical endocrinologists and [place] [employer] guidelines recommend patients who [...] or arrhythmias In the setting of potential stimulant/amphetamin e use such as phentermine We have also [...] track activity level. Consider using apps like [employer], ClickEquationspal, lose it, stick as needed for self-monitoring and weight management. Consider group exercises. Consider hiring a personal care worker. Regular exercise is giron to sustainable health [...] counseling and psychiatry and Dr Carcamo at [facility]. We would like to cover regular topics [...] software and direct typing Please excuse inadvertent ramp agent or typing errors, or uncorrected word substitutions Although every attempt has been made by the provider to proofread this document, occasional misspellings and typographical errors may still be present Due to the previous pandemic, and the use of personal protective equipment (PPE) This may decrease voice recognition accuracy Inadvertent ramp agent errors may occur 09/26/2024 Overweight (ICD-10 - [...] minimum of 6 months The most recent [place] [employer] clinical endocrinologists and [place] [employer] guidelines recommend patients who [...] software and direct typing Please excuse inadvertent ramp agent or typing errors, or uncorrected word substitutions Although every attempt has been made by the provider to proofread this document, occasional misspellings and typographical errors may still be present Due to the previous pandemic, and the use of personal protective equipment (PPE) This may decrease voice recognition accuracy Inadvertent ramp agent errors may occur 09/26/2024 BMI 25.0-25.9,adult (ICD-10 [...] minimum of 6 months The most recent [place] [employer] of clinical endocrinologists and [place] [employer] guidelines recommend patients who [...] software and direct typing Please excuse inadvertent ramp agent or typing errors, or uncorrected word substitutions Although every attempt has been made by the provider to proofread this document, occasional misspellings and typographical errors may still be present Due to the previous pandemic, and the use of personal protective equipment (PPE) This may decrease voice recognition accuracy Inadvertent ramp agent errors may occur 10/24/2024 Overweight (ICD-10 - E66.3) Patient is here for weight management follow-up. We focused on significance of healthy lifestyle changes. We talked about need to track steps with goal between 6000-10,000 steps daily, focus on portion control, read food labels, get adequate sleep between 7 to 8 hours, get adequate rest to the body, meditate, frequent nutritious meals including vegetables and healthy choices of lean meats, fish, and elimination of refined carbohydrates. We also talked about mindfulness and mindful eating. Particular focus was on improving muscle mass. Total time spent with 30 minutes with greater than 50% spent on counseling and coordinating care. Weight 140 pounds, BMI 24.03. SECA scan completed today and interpreted with the patient. There has been a small decrease in muscle mass. Regarding whole-body scale for muscle mass patient is on lower end. We discussed the importance of increasing her protein consumption as best as she can with sources like protein shakes, dairy products, nuts, seeds, legumes, and some seafood. She also has a stationary bike at home and we discussed increasing the resistance on the bike to improve muscle mass. At this time plan to continue Zepbound 5 mg once weekly. Discussed proper use of the medication including rotating injection sites and expected side effect profile including but not limited to nausea, constipation, abdominal pain, and heartburn. She will follow-up in the office in approximately 4 weeks for continued weight management. # Hyperlipidemia: Recent lipid panel with cholesterol 137, LDL 183. Discussed importance of diet and lifestyle for maintaining healthy cholesterol levels preventing other comorbidities. Will continue to monitor. # GERD: Stable at this time. Continue famotidine 40 mg once daily. # History of myocardial infarction: Asymptomatic in office today, without chest pain, shortness of breath, diaphoresis, or dyspnea on exertion. Continue aspirin 81 mg once daily. Will continue to monitor. # Migraines: Asymptomatic in office today. Continue topiramate 100 mg once daily for migraine prevention. Will continue to monitor. # Depression/anxiety: Stable at this time. Continue venlafaxine 75 mg 1 tablet once daily. Will continue to monitor. All questions have been answered to patient's satisfaction. Patient verbalized understanding of diagnosis and treatments explained. Advised to call sooner prior to next visit it any questions/concerns arise. Case discussed with collaborating physician Mike Martin who reviewed the assessment and plan. Chart, medications, labs, vital signs reviewed. Dictation was accomplished with the use of [employer] voice recognition software, which is prone to medical misidentifications and grammatical errors. This are unintentional and the practitioner does try to identify and correct these, but some could still be present. Please do not hesitate to contact practitioner for clarification. 10/24/2024 BMI 24.0-24.9, adult (ICD-10 - Z68.24) Patient is here for weight management follow-up. We focused on significance of healthy lifestyle changes. We talked about need to track steps with goal between 6000-10,000 steps daily, focus on portion control, read food labels, get adequate sleep between 7 to 8 hours, get adequate rest to the body, meditate, frequent nutritious meals including vegetables and healthy choices of lean meats, fish, and elimination of refined carbohydrates. We also talked about mindfulness and mindful eating. Particular focus was on improving muscle mass. Total time spent with 30 minutes with greater than 50% spent on counseling and coordinating care. Weight 140 pounds, BMI 24.03. SECA scan completed today and interpreted with the patient. There has been a small decrease in muscle mass. Regarding whole-body scale for muscle mass patient is on lower end. We discussed the importance of increasing her protein consumption as best as she can with sources like protein shakes, dairy products, nuts, seeds, legumes, and some seafood. She also has a stationary bike at home and we discussed increasing the resistance on the bike to improve muscle mass. At this time plan to continue Zepbound 5 mg once weekly. Discussed proper use of the medication including rotating injection sites and expected side effect profile including but not limited to nausea, constipation, abdominal pain, and heartburn. She will follow-up in the office in approximately 4 weeks for continued weight management. # Hyperlipidemia: Recent lipid panel with cholesterol 137, LDL 183. Discussed importance of diet and lifestyle for maintaining healthy cholesterol levels preventing other comorbidities. Will continue to monitor. # GERD: Stable at this time. Continue famotidine 40 mg once daily. # History of myocardial infarction: Asymptomatic in office today, without chest pain, shortness of breath, diaphoresis, or dyspnea on exertion. Continue aspirin 81 mg once daily. Will continue to monitor. # Migraines: Asymptomatic in office today. Continue topiramate 100 mg once daily for migraine prevention. Will continue to monitor. # Depression/anxiety: Stable at this time. Continue venlafaxine 75 mg 1 tablet once daily. Will continue to monitor. All questions have been answered to patient's satisfaction. Patient verbalized understanding of diagnosis and treatments explained. Advised to call sooner prior to next visit it any questions/concerns arise. Case discussed with collaborating physician Mike Martin who reviewed the assessment and plan. Chart, medications, labs, vital signs reviewed. Dictation was accomplished with the use of [employer] voice recognition software, which is prone to medical misidentifications and grammatical errors. This are unintentional and the practitioner does try to identify and correct these, but some could still be present. Please do not hesitate to contact practitioner for clarification. 11/21/2024 Other hyperlipidemia (ICD-10 - E78.49) #Weight Management 11/21/2024 Her BMI has normalized Will put her [...] minimum of 6 months The most recent [place] [employer] clinical endocrinologists and [place] [employer]in[employer] guidelines recommend patients who [...] software and direct typing Please excuse inadvertent ramp agent or typing errors, or uncorrected word substitutions Although every attempt has been made by the provider to proofread this document, occasional misspellings and typographical errors may still be present Due to the previous pandemic, and the use of personal protective equipment (PPE) This may decrease voice recognition accuracy Inadvertent ramp agent errors may occur 01/02/2025 Other hyperlipidemia (ICD-10 - E78.49) #Weight [...] software and direct typing Please excuse inadvertent ramp agent or typing errors, or uncorrected word substitutions Although every attempt has been made by the provider to proofread this document, occasional misspellings and typographical errors may still be present Due to the previous pandemic, and the use of personal protective equipment (PPE) This may decrease voice recognition accuracy Inadvertent ramp agent errors may occur 02/06/2025 Other hyperlipidemia (ICD-10 - E78.49) #Weight Management 02/06/2025 Decrease Zepbound to 2.5mg every 2 weeks to maintain weight Doscussed increasing protein intake and add creatine for [...] software and direct typing Please excuse inadvertent ramp agent or typing errors, or uncorrected word substitutions Although every attempt has been made by the provider to proofread this document, occasional misspellings and typographical errors may still be present Due to the previous pandemic, and the use of personal protective equipment (PPE) This may decrease voice recognition accuracy Inadvertent ramp agent errors may occur 02/06/2025 Migraine without status migrainosus, not intractable, unspecified migraine type (ICD-10 - G43.909) #Weight Management 02/06/2025 Decrease Zepbound to 2.5mg every 2 weeks to maintain weight Doscussed increasing protein intake and add creatine for [...] software and direct typing Please excuse inadvertent ramp agent or typing errors, or uncorrected word substitutions Although every attempt has been made by the provider to proofread this document, occasional misspellings and typographical errors may still be present Due to the previous pandemic, and the use of personal protective equipment (PPE) This may decrease voice recognition accuracy Inadvertent ramp agent errors may occur 11/21/2024 Migraine without status migrainosus, not intractable, unspecified migraine type (ICD-10 - G43.909) #Weight Management 11/21/2024 Her BMI has normalized Will put her [...] minimum of 6 months The most recent [place] [employer] of clinical endocrinologists and [place] [employer] guidelines recommend patients who [...] software and direct typing Please excuse inadvertent ramp agent or typing errors, or uncorrected word substitutions Although every attempt has been made by the provider to proofread this document, occasional misspellings and typographical errors may still be present Due to the previous pandemic, and the use of personal protective equipment (PPE) This may decrease voice recognition accuracy Inadvertent ramp agent errors may occur 01/02/2025 Migraine without status [...] software and direct typing Please excuse inadvertent ramp agent or typing errors, or uncorrected word substitutions Although every attempt has been made by the provider to proofread this document, occasional misspellings and typographical errors may still be present Due to the previous pandemic, and the use of personal protective equipment (PPE) This may decrease voice recognition accuracy Inadvertent ramp agent errors may occur 10/24/2024 Nutritional counseling (ICD-10 - Z71.3) Patient is here for weight management follow-up. We focused on significance of healthy lifestyle changes. We talked about need to track steps with goal between 6000-10,000 steps daily, focus on portion control, read food labels, get adequate sleep between 7 to 8 hours, get adequate rest to the body, meditate, frequent nutritious meals including vegetables and healthy choices of lean meats, fish, and elimination of refined carbohydrates. We also talked about mindfulness and mindful eating. Particular focus was on improving muscle mass. Total time spent with 30 minutes with greater than 50% spent on counseling and coordinating care. Weight 140 pounds, BMI 24.03. SECA scan completed today and interpreted with the patient. There has been a small decrease in muscle mass. Regarding whole-body scale for muscle mass patient is on lower end. We discussed the importance of increasing her protein consumption as best as she can with sources like protein shakes, dairy products, nuts, seeds, legumes, and some seafood. She also has a stationary bike at home and we discussed increasing the resistance on the bike to improve muscle mass. At this time plan to continue Zepbound 5 mg once weekly. Discussed proper use of the medication including rotating injection sites and expected side effect profile including but not limited to nausea, constipation, abdominal pain, and heartburn. She will follow-up in the office in approximately 4 weeks for continued weight management. # Hyperlipidemia: Recent lipid panel with cholesterol 137, LDL 183. Discussed importance of diet and lifestyle for maintaining healthy cholesterol levels preventing other comorbidities. Will continue to monitor. # GERD: Stable at this time. Continue famotidine 40 mg once daily. # History of myocardial infarction: Asymptomatic in office today, without chest pain, shortness of breath, diaphoresis, or dyspnea on exertion. Continue aspirin 81 mg once daily. Will continue to monitor. # Migraines: Asymptomatic in office today. Continue topiramate 100 mg once daily for migraine prevention. Will continue to monitor. # Depression/anxiety: Stable at this time. Continue venlafaxine 75 mg 1 tablet once daily. Will continue to monitor. All questions have been answered to patient's satisfaction. Patient verbalized understanding of diagnosis and treatments explained. Advised to call sooner prior to next visit it any questions/concerns arise. Case discussed with collaborating physician Mike Martin who reviewed the assessment and plan. Chart, medications, labs, vital signs reviewed. Dictation was accomplished with the use of [employer] voice recognition software, which is prone to medical misidentifications and grammatical errors. This are unintentional and the practitioner does try to identify and correct these, but some could still be present. Please do not hesitate to contact practitioner for clarification. 09/26/2024 Dietary counseling and surveillance (ICD-10 - [...] minimum of 6 months The most recent [place] [employer] clinical endocrinologists and [place] [employer] guidelines recommend patients who [...] software and direct typing Please excuse inadvertent ramp agent or typing errors, or uncorrected word substitutions Although every attempt has been made by the provider to proofread this document, occasional misspellings and typographical errors may still be present Due to the previous pandemic, and the use of personal protective equipment (PPE) This may decrease voice recognition accuracy Inadvertent ramp agent errors may occur 07/25/2024 Dietary counseling and [...] minimum of 6 months The most recent [place] [employer] and [employer] [employer] guidelines recommend patients who [...] or arrhythmias In the setting of potential stimulant/amphetamin e use such as phentermine We have also [...] track activity level. Consider using apps like [employer]ge, Double DoodsfitAccoladepal, lose it, stick as needed for self-monitoring and weight management. Consider group exercises. Consider hiring a personal care worker. Regular exercise is giron to sustainable health [...] counseling and psychiatry and Dr Carcamo at [facility]. We would like to cover regular topics [...] software and direct typing Please excuse inadvertent ramp agent or typing errors, or uncorrected word substitutions Although every attempt has been made by the provider to proofread this document, occasional misspellings and typographical errors may still be present Due to the previous pandemic, and the use of personal protective equipment (PPE) This may decrease voice recognition accuracy Inadvertent ramp agent errors may occur 05/23/2024 Body mass index [...] minimum of 6 months The most recent [place] [employer] and [employer] [employer] guidelines recommend patients who [...] or arrhythmias In the setting of potential stimulant/amphetamin e use such as phentermine We have also [...] track activity level. Consider using apps like [employer], ClickEquationspal, lose it, stick as needed for self-monitoring and weight management. Consider group exercises. Consider hiring a personal care worker. Regular exercise is giron to sustainable health [...] counseling and psychiatry and Dr Carcamo at [facility]. We would like to cover regular topics [...] software and direct typing Please excuse inadvertent ramp agent or typing errors, or uncorrected word substitutions Although every attempt has been made by the provider to proofread this document, occasional misspellings and typographical errors may still be present Due to the previous pandemic, and the use of personal protective equipment (PPE) This may decrease voice recognition accuracy Inadvertent ramp agent errors may occur 05/23/2024 Other hyperlipidemia (ICD-10 [...] minimum of 6 months The most recent [place] [employer]in[employer] and [employer] guidelines recommend patients who [...] or arrhythmias In the setting of potential stimulant/amphetamin e use such as phentermine We have also [...] track activity level. Consider using apps like [employer], myfitAccoladepal, lose it, stick as needed for self-monitoring and weight management. Consider group exercises. Consider hiring a personal care worker. Regular exercise is giron to sustainable health [...] counseling and psychiatry and Dr Carcamo at [facility]. We would like to cover regular topics [...] software and direct typing Please excuse inadvertent ramp agent or typing errors, or uncorrected word substitutions Although every attempt has been made by the provider to proofread this document, occasional misspellings and typographical errors may still be present Due to the previous pandemic, and the use of personal protective equipment (PPE) This may decrease voice recognition accuracy Inadvertent ramp agent errors may occur 07/25/2024 Other hyperlipidemia (ICD-10 [...] minimum of 6 months The most recent [place] [employer]inologists and [employer] [employer] guidelines recommend patients who [...] or arrhythmias In the setting of potential stimulant/amphetamin e use such as phentermine We have also [...] track activity level. Consider using apps like Gazoobise, my[employer] Companypal, lose it, stick as needed for self-monitoring and weight management. Consider group exercises. Consider hiring a personal care worker. Regular exercise is giron to sustainable health [...] counseling and psychiatry and Dr Carcamo at [facility]. We would like to cover regular topics [...] software and direct typing Please excuse inadvertent ramp agent or typing errors, or uncorrected word substitutions Although every attempt has been made by the provider to proofread this document, occasional misspellings and typographical errors may still be present Due to the previous pandemic, and the use of personal protective equipment (PPE) This may decrease voice recognition accuracy Inadvertent ramp agent errors may occur 10/24/2024 Elevated LDL cholesterol level (ICD-10 - E78.00) Patient is here for weight management follow-up. We focused on significance of healthy lifestyle changes. We talked about need to track steps with goal between 6000-10,000 steps daily, focus on portion control, read food labels, get adequate sleep between 7 to 8 hours, get adequate rest to the body, meditate, frequent nutritious meals including vegetables and healthy choices of lean meats, fish, and elimination of refined carbohydrates. We also talked about mindfulness and mindful eating. Particular focus was on improving muscle mass. Total time spent with 30 minutes with greater than 50% spent on counseling and coordinating care. Weight 140 pounds, BMI 24.03. SECA scan completed today and interpreted with the patient. There has been a small decrease in muscle mass. Regarding whole-body scale for muscle mass patient is on lower end. We discussed the importance of increasing her protein consumption as best as she can with sources like protein shakes, dairy products, nuts, seeds, legumes, and some seafood. She also has a stationary bike at home and we discussed increasing the resistance on the bike to improve muscle mass. At this time plan to continue Zepbound 5 mg once weekly. Discussed proper use of the medication including rotating injection sites and expected side effect profile including but not limited to nausea, constipation, abdominal pain, and heartburn. She will follow-up in the office in approximately 4 weeks for continued weight management. # Hyperlipidemia: Recent lipid panel with cholesterol 137, LDL 183. Discussed importance of diet and lifestyle for maintaining healthy cholesterol levels preventing other comorbidities. Will continue to monitor. # GERD: Stable at this time. Continue famotidine 40 mg once daily. # History of myocardial infarction: Asymptomatic in office today, without chest pain, shortness of breath, diaphoresis, or dyspnea on exertion. Continue aspirin 81 mg once daily. Will continue to monitor. # Migraines: Asymptomatic in office today. Continue topiramate 100 mg once daily for migraine prevention. Will continue to monitor. # Depression/anxiety: Stable at this time. Continue venlafaxine 75 mg 1 tablet once daily. Will continue to monitor. All questions have been answered to patient's satisfaction. Patient verbalized understanding of diagnosis and treatments explained. Advised to call sooner prior to next visit it any questions/concerns arise. Case discussed with collaborating physician Mike Martin who reviewed the assessment and plan. Chart, medications, labs, vital signs reviewed. Dictation was accomplished with the use of [employer] voice recognition software, which is prone to medical misidentifications and grammatical errors. This are unintentional and the practitioner does try to identify and correct these, but some could still be present. Please do not hesitate to contact practitioner for clarification. 09/26/2024 Other hyperlipidemia (ICD-10 - E78.49) #Weight [...] minimum of 6 months The most recent [place] [employer]in[employer] and [place] [employer] guidelines recommend patients who [...] software and direct typing Please excuse inadvertent ramp agent or typing errors, or uncorrected word substitutions Although every attempt has been made by the provider to proofread this document, occasional misspellings and typographical errors may still be present Due to the previous pandemic, and the use of personal protective equipment (PPE) This may decrease voice recognition accuracy Inadvertent ramp agent errors may occur 11/21/2024 Past myocardial infarction (ICD-10 - I25.2) #Weight Management 11/21/2024 Her BMI has normalized Will put her [...] minimum of 6 months The most recent [place] [employer]ocrinologists and [place] [employer] guidelines recommend patients who [...] software and direct typing Please excuse inadvertent ramp agent or typing errors, or uncorrected word substitutions Although every attempt has been made by the provider to proofread this document, occasional misspellings and typographical errors may still be present Due to the previous pandemic, and the use of personal protective equipment (PPE) This may decrease voice recognition accuracy Inadvertent ramp agent errors may occur 01/02/2025 Past myocardial infarction [...] software and direct typing Please excuse inadvertent ramp agent or typing errors, or uncorrected word substitutions Although every attempt has been made by the provider to proofread this document, occasional misspellings and typographical errors may still be present Due to the previous pandemic, and the use of personal protective equipment (PPE) This may decrease voice recognition accuracy Inadvertent ramp agent errors may occur 02/06/2025 Past myocardial infarction (ICD-10 - I25.2) #Weight Management 02/06/2025 Decrease Zepbound to 2.5mg every 2 weeks to maintain weight Doscussed increasing protein intake and add creatine for [...] software and direct typing Please excuse inadvertent ramp agent or typing errors, or uncorrected word substitutions Although every attempt has been made by the provider to proofread this document, occasional misspellings and typographical errors may still be present Due to the previous pandemic, and the use of personal protective equipment (PPE) This may decrease voice recognition accuracy Inadvertent ramp agent errors may occur 02/06/2025 Dietary counseling and surveillance (ICD-10 - Z71.3) #Weight Management 02/06/2025 Decrease Zepbound to 2.5mg every 2 weeks to maintain weight Doscussed increasing protein intake and add creatine for [...] software and direct typing Please excuse inadvertent ramp agent or typing errors, or uncorrected word substitutions Although every attempt has been made by the provider to proofread this document, occasional misspellings and typographical errors may still be present Due to the previous pandemic, and the use of personal protective equipment (PPE) This may decrease voice recognition accuracy Inadvertent ramp agent errors may occur 01/02/2025 Dietary counseling and [...] software and direct typing Please excuse inadvertent ramp agent or typing errors, or uncorrected word substitutions Although every attempt has been made by the provider to proofread this document, occasional misspellings and typographical errors may still be present Due to the previous pandemic, and the use of personal protective equipment (PPE) This may decrease voice recognition accuracy Inadvertent ramp agent errors may occur 10/24/2024 GERD without esophagitis (ICD-10 - K21.9) Patient is here for weight management follow-up. We focused on significance of healthy lifestyle changes. We talked about need to track steps with goal between 6000-10,000 steps daily, focus on portion control, read food labels, get adequate sleep between 7 to 8 hours, get adequate rest to the body, meditate, frequent nutritious meals including vegetables and healthy choices of lean meats, fish, and elimination of refined carbohydrates. We also talked about mindfulness and mindful eating. Particular focus was on improving muscle mass. Total time spent with 30 minutes with greater than 50% spent on counseling and coordinating care. Weight 140 pounds, BMI 24.03. SECA scan completed today and interpreted with the patient. There has been a small decrease in muscle mass. Regarding whole-body scale for muscle mass patient is on lower end. We discussed the importance of increasing her protein consumption as best as she can with sources like protein shakes, dairy products, nuts, seeds, legumes, and some seafood. She also has a stationary bike at home and we discussed increasing the resistance on the bike to improve muscle mass. At this time plan to continue Zepbound 5 mg once weekly. Discussed proper use of the medication including rotating injection sites and expected side effect profile including but not limited to nausea, constipation, abdominal pain, and heartburn. She will follow-up in the office in approximately 4 weeks for continued weight management. # Hyperlipidemia: Recent lipid panel with cholesterol 137, LDL 183. Discussed importance of diet and lifestyle for maintaining healthy cholesterol levels preventing other comorbidities. Will continue to monitor. # GERD: Stable at this time. Continue famotidine 40 mg once daily. # History of myocardial infarction: Asymptomatic in office today, without chest pain, shortness of breath, diaphoresis, or dyspnea on exertion. Continue aspirin 81 mg once daily. Will continue to monitor. # Migraines: Asymptomatic in office today. Continue topiramate 100 mg once daily for migraine prevention. Will continue to monitor. # Depression/anxiety: Stable at this time. Continue venlafaxine 75 mg 1 tablet once daily. Will continue to monitor. All questions have been answered to patient's satisfaction. Patient verbalized understanding of diagnosis and treatments explained. Advised to call sooner prior to next visit it any questions/concerns arise. Case discussed with collaborating physician Mike Martin who reviewed the assessment and plan. Chart, medications, labs, vital signs reviewed. Dictation was accomplished with the use of [employer] voice recognition software, which is prone to medical misidentifications and grammatical errors. This are unintentional and the practitioner does try to identify and correct these, but some could still be present. Please do not hesitate to contact practitioner for clarification. 11/21/2024 Dietary counseling and surveillance (ICD-10 - Z71.3) #Weight Management 11/21/2024 Her BMI has normalized Will put her [...] minimum of 6 months The most recent [place] [employer]ocrinologists and [place] [employer] guidelines recommend patients who [...] software and direct typing Please excuse inadvertent ramp agent or typing errors, or uncorrected word substitutions Although every attempt has been made by the provider to proofread this document, occasional misspellings and typographical errors may still be present Due to the previous pandemic, and the use of personal protective equipment (PPE) This may decrease voice recognition accuracy Inadvertent ramp agent errors may occur 05/23/2024 Past myocardial infarction [...] minimum of 6 months The most recent [place] [employer]ocrinologists and [place] [employer] guidelines recommend patients who [...] or arrhythmias In the setting of potential stimulant/amphetamin e use such as phentermine We have also [...] track activity level. Consider using apps like [employer]ge, ClickEquationspal, lose it, stick as needed for self-monitoring and weight management. Consider group exercises. Consider hiring a personal care worker. Regular exercise is giron to sustainable health [...] counseling and psychiatry and Dr Carcamo at [facility]. We would like to cover regular topics [...] software and direct typing Please excuse inadvertent ramp agent or typing errors, or uncorrected word substitutions Although every attempt has been made by the provider to proofread this document, occasional misspellings and typographical errors may still be present Due to the previous pandemic, and the use of personal protective equipment (PPE) This may decrease voice recognition accuracy Inadvertent ramp agent errors may occur 07/25/2024 Past myocardial infarction [...] minimum of 6 months The most recent [place] [employer]ocrinologists and [place] [employer] guidelines recommend patients who [...] or arrhythmias In the setting of potential stimulant/amphetamin e use such as phentermine We have also [...] track activity level. Consider using apps like [employer], [employer]Equ[employer]pal, lose it, stick as needed for self-monitoring and weight management. Consider group exercises. Consider hiring a personal care worker. Regular exercise is giron to sustainable health [...] counseling and psychiatry and Dr Carcamo at [facility]. We would like to cover regular topics [...] software and direct typing Please excuse inadvertent ramp agent or typing errors, or uncorrected word substitutions Although every attempt has been made by the provider to proofread this document, occasional misspellings and typographical errors may still be present Due to the previous pandemic, and the use of personal protective equipment (PPE) This may decrease voice recognition accuracy Inadvertent ramp agent errors may occur 09/26/2024 Past myocardial infarction [...] minimum of 6 months The most recent [place] [employer]ocrinologists and [employer] [employer] guidelines recommend patients who [...] software and direct typing Please excuse inadvertent ramp agent or typing errors, or uncorrected word substitutions Although every attempt has been made by the provider to proofread this document, occasional misspellings and typographical errors may still be present Due to the previous pandemic, and the use of personal protective equipment (PPE) This may decrease voice recognition accuracy Inadvertent ramp agent errors may occur 09/26/2024 Migraine without status [...] minimum of 6 months The most recent [place] [employer]inologists and [employer] [employer] guidelines recommend patients who [...] software and direct typing Please excuse inadvertent ramp agent or typing errors, or uncorrected word substitutions Although every attempt has been made by the provider to proofread this document, occasional misspellings and typographical errors may still be present Due to the previous pandemic, and the use of personal protective equipment (PPE) This may decrease voice recognition accuracy Inadvertent ramp agent errors may occur 05/23/2024 Migraine without status [...] minimum of 6 months The most recent [place] [employer]inologists and [place] [employer] guidelines recommend patients who [...] or arrhythmias In the setting of potential stimulant/amphetamin e use such as phentermine We have also [...] track activity level. Consider using apps like Blox[employer] exceLif[employer] Airise, myfitnesspal, lose it, stick as needed for self-monitoring and weight management. Consider group exercises. Consider hiring a personal care worker. Regular exercise is giron to sustainable health [...] counseling and psychiatry and Dr Carcamo at [facility]. We would like to cover regular topics [...] software and direct typing Please excuse inadvertent ramp agent or typing errors, or uncorrected word substitutions Although every attempt has been made by the provider to proofread this document, occasional misspellings and typographical errors may still be present Due to the previous pandemic, and the use of personal protective equipment (PPE) This may decrease voice recognition accuracy Inadvertent ramp agent errors may occur 07/25/2024 Migraine without status [...] minimum of 6 months The most recent [place] [employer]ocrinologists and [place] [employer] guidelines recommend patients who [...] or arrhythmias In the setting of potential stimulant/amphetamin e use such as phentermine We have also [...] track activity level. Consider using apps like [employer], myfitnesspal, lose it, stick as needed for self-monitoring and weight management. Consider group exercises. Consider hiring a personal care worker. Regular exercise is giron to sustainable health [...] counseling and psychiatry and Dr Carcamo at [facility]. We would like to cover regular topics [...] software and direct typing Please excuse inadvertent ramp agent or typing errors, or uncorrected word substitutions Although every attempt has been made by the provider to proofread this document, occasional misspellings and typographical errors may still be present Due to the previous pandemic, and the use of personal protective equipment (PPE) This may decrease voice recognition accuracy Inadvertent ramp agent errors may occur 11/21/2024 BMI 23.0-23.9, adult (ICD-10 - Z68.23) #Weight Management 11/21/2024 Her BMI has normalized Will put her [...] minimum of 6 months The most recent [place] [employer]ocrinologists and [place] [employer] guidelines recommend patients who [...] software and direct typing Please excuse inadvertent ramp agent or typing errors, or uncorrected word substitutions Although every attempt has been made by the provider to proofread this document, occasional misspellings and typographical errors may still be present Due to the previous pandemic, and the use of personal protective equipment (PPE) This may decrease voice recognition accuracy Inadvertent ramp agent errors may occur 10/24/2024 Episodic migraine (ICD-10 - G43.909) Patient is here for weight management follow-up. We focused on significance of healthy lifestyle changes. We talked about need to track steps with goal between 6000-10,000 steps daily, focus on portion control, read food labels, get adequate sleep between 7 to 8 hours, get adequate rest to the body, meditate, frequent nutritious meals including vegetables and healthy choices of lean meats, fish, and elimination of refined carbohydrates. We also talked about mindfulness and mindful eating. Particular focus was on improving muscle mass. Total time spent with 30 minutes with greater than 50% spent on counseling and coordinating care. Weight 140 pounds, BMI 24.03. SECA scan completed today and interpreted with the patient. There has been a small decrease in muscle mass. Regarding whole-body scale for muscle mass patient is on lower end. We discussed the importance of increasing her protein consumption as best as she can with sources like protein shakes, dairy products, nuts, seeds, legumes, and some seafood. She also has a stationary bike at home and we discussed increasing the resistance on the bike to improve muscle mass. At this time plan to continue Zepbound 5 mg once weekly. Discussed proper use of the medication including rotating injection sites and expected side effect profile including but not limited to nausea, constipation, abdominal pain, and heartburn. She will follow-up in the office in approximately 4 weeks for continued weight management. # Hyperlipidemia: Recent lipid panel with cholesterol 137, LDL 183. Discussed importance of diet and lifestyle for maintaining healthy cholesterol levels preventing other comorbidities. Will continue to monitor. # GERD: Stable at this time. Continue famotidine 40 mg once daily. # History of myocardial infarction: Asymptomatic in office today, without chest pain, shortness of breath, diaphoresis, or dyspnea on exertion. Continue aspirin 81 mg once daily. Will continue to monitor. # Migraines: Asymptomatic in office today. Continue topiramate 100 mg once daily for migraine prevention. Will continue to monitor. # Depression/anxiety: Stable at this time. Continue venlafaxine 75 mg 1 tablet once daily. Will continue to monitor. All questions have been answered to patient's satisfaction. Patient verbalized understanding of diagnosis and treatments explained. Advised to call sooner prior to next visit it any questions/concerns arise. Case discussed with collaborating physician Mike Martin who reviewed the assessment and plan. Chart, medications, labs, vital signs reviewed. Dictation was accomplished with the use of [employer] voice recognition software, which is prone to medical misidentifications and grammatical errors. This are unintentional and the practitioner does try to identify and correct these, but some could still be present. Please do not hesitate to contact practitioner for clarification. 01/02/2025 BMI 23.0-23.9, adult (ICD-10 - Z68.23) [...] software and direct typing Please excuse inadvertent ramp agent or typing errors, or uncorrected word substitutions Although every attempt has been made by the provider to proofread this document, occasional misspellings and typographical errors may still be present Due to the previous pandemic, and the use of personal protective equipment (PPE) This may decrease voice recognition accuracy Inadvertent ramp agent errors may occur 02/06/2025 BMI 21.0-21.9, adult (ICD-10 - Z68.21) #Weight Management 02/06/2025 Decrease Zepbound to 2.5mg every 2 weeks to maintain weight Doscussed increasing protein intake and add creatine for [...] software and direct typing Please excuse inadvertent ramp agent or typing errors, or uncorrected word substitutions Although every attempt has been made by the provider to proofread this document, occasional misspellings and typographical errors may still be present Due to the previous pandemic, and the use of personal protective equipment (PPE) This may decrease voice recognition accuracy Inadvertent ramp agent errors may occur 10/24/2024 Depression with anxiety (ICD-10 - F41.8) Patient is here for weight management follow-up. We focused on significance of healthy lifestyle changes. We talked about need to track steps with goal between 6000-10,000 steps daily, focus on portion control, read food labels, get adequate sleep between 7 to 8 hours, get adequate rest to the body, meditate, frequent nutritious meals including vegetables and healthy choices of lean meats, fish, and elimination of refined carbohydrates. We also talked about mindfulness and mindful eating. Particular focus was on improving muscle mass. Total time spent with 30 minutes with greater than 50% spent on counseling and coordinating care. Weight 140 pounds, BMI 24.03. SECA scan completed today and interpreted with the patient. There has been a small decrease in muscle mass. Regarding whole-body scale for muscle mass patient is on lower end. We discussed the importance of increasing her protein consumption as best as she can with sources like protein shakes, dairy products, nuts, seeds, legumes, and some seafood. She also has a stationary bike at home and we discussed increasing the resistance on the bike to improve muscle mass. At this time plan to continue Zepbound 5 mg once weekly. Discussed proper use of the medication including rotating injection sites and expected side effect profile including but not limited to nausea, constipation, abdominal pain, and heartburn. She will follow-up in the office in approximately 4 weeks for continued weight management. # Hyperlipidemia: Recent lipid panel with cholesterol 137, LDL 183. Discussed importance of diet and lifestyle for maintaining healthy cholesterol levels preventing other comorbidities. Will continue to monitor. # GERD: Stable at this time. Continue famotidine 40 mg once daily. # History of myocardial infarction: Asymptomatic in office today, without chest pain, shortness of breath, diaphoresis, or dyspnea on exertion. Continue aspirin 81 mg once daily. Will continue to monitor. # Migraines: Asymptomatic in office today. Continue topiramate 100 mg once daily for migraine prevention. Will continue to monitor. # Depression/anxiety: Stable at this time. Continue venlafaxine 75 mg 1 tablet once daily. Will continue to monitor. All questions have been answered to patient's satisfaction. Patient verbalized understanding of diagnosis and treatments explained. Advised to call sooner prior to next visit it any questions/concerns arise. Case discussed with collaborating physician Mike Martin who reviewed the assessment and plan. Chart, medications, labs, vital signs reviewed. Dictation was accomplished with the use of [employer] voice recognition software, which is prone to medical misidentifications and grammatical errors. This are unintentional and the practitioner does try to identify and correct these, but some could still be present. Please do not hesitate to contact practitioner for clarification. PLAN OF TREATMENT Next Appt Details Provider Name:IMELDA KORIJuanjose, 03/20/2025 10:00:00 AM, [address] [facility], [facility] [address], [place], [address], Insurance Providers Payer Name Payer Address Payer Phone Subscriber Number Group Number Insured Name Patient Relationship to Insured Coverage Start Date Coverage End Date [facility] [address] [place] [id number] Kelsey Bhagat Self - patient is the insured MEDICAL (GENERAL) HISTORY Medical History History ICD Code asthma heart attack weight gain/loss migraines Surgical History Surgery Date(Month/Year) section 01/2007
--- OUTSIDE RECORDS SUMMARY | 2025-02-06 17:51 | XMS_ITS ---
Author Organization [email or web address] Address [address] [place] [address] Care Team Providers Care Cement Based Materials Pump Tender Name Role Phone IMELDA RENNER Unavailable [phone] REASON FOR VISIT prior auth Encounters Encounter Location Date Provider Diagnosis [facility] [address] [facility] [address] [place] [address] 01/05/2025 IMELDA RENNER PLAN OF TREATMENT Next Appt Details Provider Name:IMELDA RENNER, 03/20/2025 10:00:00 AM, [address] [facility], [address], [place], [address], Progress Notes * Natalie BHAGATOB:[birth year] (44 yo F)Acc No.[id number]:01/05/2025 Patient:??Kelsey BHAGAT :1980?Age:44 Y?Sex:Fe male Address:[address], [place] [address] * true * Date:??
[2025-02-06 18:09] LABS: Alanine Aminotransferase 25 U/L (0-31); Albumin Level 4.3 g/dL (3.5-5.0); Alkaline Phosphatase 79 U/L (39-117); Anion Gap 9 (12-20); Aspartate Amino Transferase 41 U/L (5-31); Bilirubin Total 0.4 mg/dL (0.0-1.0); Blood Urea Nitrogen 12 mg/dL (9-16); Calcium 9.4 mg/dL (8.4-10.2); Carbon Dioxide 17 mmol/L (22-29); Chloride 118 mmol/L (96-108); Creatinine Clr Calc Pharmacy 60.4; Estimated Glomerular Filt Rate > 60; Glucose Random 92 mg/dL (60-115); Potassium 4.2 mmol/L (3.3-5.1); Sodium 140 mmol/L (135-145); Total Protein 8.1 g/dL (6.5-8.0)
[2025-02-06 18:10] LABS: HCG Quantitative < 2 mIU/mL
[2025-02-06 19:30] VITALS: BP 113/60; PULSE 79; RESP 20; TEMP 36.8; O2SAT 100
[2025-02-06 20:02] LABS: Appearance Urine Clear; Color Urine Yellow; Glucose Urine UA Negative (Negative); Leukocyte Esterase Urine Negative (Negative); Nitrite Urine Negative (Negative); Specific Gravity - Urine <= 1.005 (1.005-1.025); UMIC TRIGGER UACC YES; Urine Blood Moderate (2+) (Negative); Urine Ketones Negative (Negative); Urine Protein Negative (Neg-Trace)
[2025-02-06 20:18] LABS: Bacteria Urine None Seen (None Seen); Hyaline Casts Urine 0-2 /LPF (0-2); RBC Urine 0-2 /HPF (0-2); Squamous Epithelial Cell Urine 0-2 /HPF (0-2); WBC Urine 0-5 /HPF (0-5)
[2025-02-06] MEDS: Tamsulosin HCL 0.4 MG CAPSULE PO (20:39)
[2025-02-06 20:56] VITALS: BP 113/60; PULSE 79; RESP 20; TEMP 36.8; O2SAT 100
== END 2025-02-06 20:57 | disposition home or self-care (01) ==
PROVIDERS: Emergency Provider Internal Medicine; PCP Internal Medicine
DX: N20.0 Calculus of kidney (principal); R10.9 Unspecified abdominal pain; R10.2 Pelvic and perineal pain; R11.2 Nausea with vomiting, unspecified; Z79.899 Other long term (current) drug therapy
CPT/HCPCS: 36415; 74176; 80053; 81001; 81003; 84702; 85025; 96361; 96374; 96375; 99284; 99285; J1885; J2405

== ENCOUNTER → 2025-02-06 16:49 | Outpatient (BNV) | payer OTHER, SELFPAY | PROVIDERS: Emergency Provider Internal Medicine; PCP Internal Medicine; Visit Provider Radiology Diagnostic Radiology | DX: N20.2 Calculus of kidney with calculus of ureter (principal) | CPT/HCPCS: 74176 ==

== ENCOUNTER 2025-08-04 11:05 | Outpatient (AMB) | payer OTHER, SELFPAY ==
--- OUTSIDE RECORDS SUMMARY | 2015-01-27 | XMS_ITS | Encounter Summary ---
Author Organization [facility] Address [address] [facility] [address] [place] [phone] Phone Care Team Providers Care Digital Technician Name Role Phone Unavailable Primary Care Provider Unavailabl e Reason for Visit * MRI/CAT Scan - Closed Specialty Diagnoses / Procedures Referred By Macy tabor Referred To Contact Radiology Procedures MRI Brain Outside (No Interpretation) Ascencion Borrero MD [address] [place] [address] Phone: tel: fax: mailto:[email or web address] Referral ID Status Reason Start Date Expiration Date Visits Re quested Visits Authorized [id number] Closed 07/25/2016 07/25/2017 1 1 Encounter Details Date Type Department Care Team ([facility] st Contact Info) Description 01/27/2015 Hospital Encounter [facility] General Imaging [address] [place] [address] Ascencion Borrero MD [address] [place] [address] [place] [phone] [email or web address] Social History Tobacco Use Types Packs/Day Years [...] (No Interpretation) (01/27/2015 12:00 AM EDT) Narrative [facility] IMG INTERFACES - 07/25/2016 11:30 AM EDT This study is for PACS storage only and not for interpretation. Procedure Note SYSTEMGENERATED, DOCUMENTATION - 07/25/2016 This study is for PACS storage only and not for interpretation. us Ascencion Borrero MD IMG OUTSIDE IMAGING W/OUT I NTERPRETATION Final Result [facility] IMG INTERFACES documented in this encounter Visit Diagnoses Not on filedocumented in this encounter Additional Source Comments The information contained in this document represents components of the legal health record. It is not the complete legal health record.[facility]
--- OUTSIDE RECORDS SUMMARY | 2015-03-02 | XMS_ITS | Encounter Summary ---
Author Organization [facility] Address [address] [facility] [address] [place] [address] Phone Care Team Providers Care Parking Line Painter Name Role Phone Unavailable Primary Care Provider Unavailabl e Reason for Visit * MRI/CAT Scan - Closed Specialty Diagnoses / Procedures Referred By Macy tabor Referred To Contact Radiology Procedures MRI Brain Outside (No Interpretation) Ascencion Borrero MD [address] [place] [address] Phone: tel: fax: mailto:[email or web address] Referral ID Status Reason Start Date Expiration Date Visits Re quested Visits Authorized [id number] Closed 07/25/2016 07/25/2017 1 1 Encounter Details Date Type Department Care Team ([facility] st Contact Info) Description 03/02/2015 Hospital Encounter [facility] General Imaging [address] [place] [address] Ascencion Borrero MD [address] [place] [address] [place] [phone] [email or web address] Interactive Social History Tobacco Use Types Packs/Day Years [...] (No Interpretation) (03/02/2015 12:00 AM EDT) Narrative [facility] IMG INTERFACES - 07/25/2016 11:30 AM EDT This study is for PACS storage only and not for interpretation. Procedure Note SYSTEMGENERATED, DOCUMENTATION - 07/25/2016 This study is for PACS storage only and not for interpretation. us Ascencion Borrero MD IMG OUTSIDE IMAGING W/OUT I NTERPRETATION Final Result [facility]G INTERFACES documented in this encounter Visit Diagnoses Not on filedocumented in this encounter Additional Source Comments The information contained in this document represents components of the legal health record. It is not the complete legal health record.[facility]
--- OUTSIDE RECORDS SUMMARY | 2025-01-02 06:30 | XMS_ITS ---
Author Organization [facility] [address] Address [address] [place] [address] Care Team Providers Care Town Administrator Name Role Phone IMELDA RENNER Unavailable [phone] Allergies Allergen (clinical drug ingredient) Drug/Non Drug Allergy documented on EMR Reaction Allergy Type Onset Date Status morphine Morphine anaphylaxis Drug Allergy Activ e REASON FOR VISIT Patient is here for weight management follow up Medications Medication SIG (Take, Route, Fr equency, Duration) Notes Start Date End Date Status Aspirin 81 81 MG 1 tablet Orally Once a day Active Venlafaxine HCl 75 MG 1 tablet with food Orally Once a day Active Famotidine 40 MG as directed Orally Active Wegovy 0.25 MG/0.5ML 0.25mg Subcutaneous weekly; Duration: 30 days Active Topiramate 100 MG 1 tablet Orally Once a day Active Encounters Encounter Location Date Provider Diagnosis [facility] [address] [place] [id number] 01/02/2025 IMELDA RENNER Other hyperlipidemia E78.49 ; Migraine without status migrainosus, not intractable, unspecified migraine type G43.909 ; Past myocardial infarction I25.2 ; Dietary counseling and surveillance Z71.3 and BMI 23.0-23.9, adult Z68.23 Assessments Encounter Date Diagnosis (ICD Code) Assessment Notes Treatment Notes Treatment Clinical Notes Section Notes 01/02/2025 Other hyperlipidemia (ICD-10 - E78.49) #Weight Management 01/02/2025 Her BMI has normalized Will put her on low-dose Wegovy 0.25 mg twice a month for maintenance track down echo report from Total time spent today was 30 minutes of which greater than 50% was spent on coordinating and counseling Patient has been found to be normal with a BMI of (23). We are a board certified obesity and weight management practice Of note, some information is being carried forward from prior records for informational purposes only and is being cited so that efficiency, safety and quality of the patient's care is not compromised This note was prepared using voice recognition software and direct typing Please excuse inadvertent lead cargo mover or typing errors, or uncorrected word substitutions Although every attempt has been made by the provider to proofread this document, occasional misspellings and typographical errors may still be present Due to the previous pandemic, and the use of personal protective equipment (PPE) This may decrease voice recognition accuracy Inadvertent lead cargo mover errors may occur 01/02/2025 Migraine without status migrainosus, not intractable, unspecified migraine type (ICD-10 - G43.909) #Weight Management 01/02/2025 Her BMI has normalized Will put her on low-dose Wegovy 0.25 mg twice a month for maintenance track down echo report from Total time spent today was 30 minutes of which greater than 50% was spent on coordinating and counseling Patient has been found to be normal with a BMI of (23). We are a board certified obesity and weight management practice Of note, some information is being carried forward from prior records for informational purposes only and is being cited so that efficiency, safety and quality of the patient's care is not compromised This note was prepared using voice recognition software and direct typing Please excuse inadvertent lead cargo mover or typing errors, or uncorrected word substitutions Although every attempt has been made by the provider to proofread this document, occasional misspellings and typographical errors may still be present Due to the previous pandemic, and the use of personal protective equipment (PPE) This may decrease voice recognition accuracy Inadvertent lead cargo mover errors may occur 01/02/2025 Past myocardial infarction (ICD-10 - I25.2) #Weight Management 01/02/2025 Her BMI has normalized Will put her on low-dose Wegovy 0.25 mg twice a month for maintenance track down echo report from Total time spent today was 30 minutes of which greater than 50% was spent on coordinating and counseling Patient has been found to be normal with a BMI of (23). We are a board certified obesity and weight management practice Of note, some information is being carried forward from prior records for informational purposes only and is being cited so that efficiency, safety and quality of the patient's care is not compromised This note was prepared using voice recognition software and direct typing Please excuse inadvertent lead cargo mover or typing errors, or uncorrected word substitutions Although every attempt has been made by the provider to proofread this document, occasional misspellings and typographical errors may still be present Due to the previous pandemic, and the use of personal protective equipment (PPE) This may decrease voice recognition accuracy Inadvertent lead cargo mover errors may occur 01/02/2025 Dietary counseling and surveillance (ICD-10 - Z71.3) #Weight Management 01/02/2025 Her BMI has normalized Will put her on low-dose Wegovy 0.25 mg twice a month for maintenance track down echo report from Total time spent today was 30 minutes of which greater than 50% was spent on coordinating and counseling Patient has been found to be normal with a BMI of (23). We are a board certified obesity and weight management practice Of note, some information is being carried forward from prior records for informational purposes only and is being cited so that efficiency, safety and quality of the patient's care is not compromised This note was prepared using voice recognition software and direct typing Please excuse inadvertent lead cargo mover or typing errors, or uncorrected word substitutions Although every attempt has been made by the provider to proofread this document, occasional misspellings and typographical errors may still be present Due to the previous pandemic, and the use of personal protective equipment (PPE) This may decrease voice recognition accuracy Inadvertent lead cargo mover errors may occur 01/02/2025 BMI 23.0-23.9, adult (ICD-10 - Z68.23) #Weight Management 01/02/2025 Her BMI has normalized Will put her on low-dose Wegovy 0.25 mg twice a month for maintenance track down echo report from Total time spent today was 30 minutes of which greater than 50% was spent on coordinating and counseling Patient has been found to be normal with a BMI of (23). We are a board certified obesity and weight management practice Of note, some information is being carried forward from prior records for informational purposes only and is being cited so that efficiency, safety and quality of the patient's care is not compromised This note was prepared using voice recognition software and direct typing Please excuse inadvertent lead cargo mover or typing errors, or uncorrected word substitutions Although every attempt has been made by the provider to proofread this document, occasional misspellings and typographical errors may still be present Due to the previous pandemic, and the use of personal protective equipment (PPE) This may decrease voice recognition accuracy Inadvertent lead cargo mover errors may occur Plan Of Treatment Medication Medication Name Sig Start Date Stop Date Notes Wegovy 0.25 MG/0.5ML 0.25mg Subcutaneous weekly; Duration: 30 days Progress Notes * Ana BHAGATraDOB:[birth year] (45 yo F)Acc No.[id number]:01/02/2025 Patient: Kelsey RESTREPO Provider: Shawn RENNER NP :1980 A ge:44 Y S ex:Female Date:01/02/2025 Address:[address] [place] [address], [facility] Subjective: * Chief Complaints: * 1 . Patient is here for weight management follow up. * HPI: C onstitutional: Patient is here today for a weight management f/u visit Patient seen and examined. Full past medical history, social history, family history, allergies and current medications were reviewed and updated. Body composition analysis reviewed today #Weight Management 01/02/2025 Patient has done quite well since May 2024, down over 50 pounds Has been off of Zepbound for a month now due to changing insurance to [facility] We discussed maintenance dosing moving forward I do not want her losing any more weight her BMI is at 23 and her weight is at 135 pounds Discussed low normal muscle mass utilizing plant based proteins, shakes, etc disc incorporating strength/resistance training, muscle building activities PMH: DC (2016) - reports she had a blood clot. Caused by stress. No atherosclerosis found. Venous sinus thrombosis sedcondary to control pills (2008) ASA 81 mg Rosuvastatin 40mg every day Topiramate Botox shots (for migraines) Sees cardiology annually Exercise: Not tracking steps daily. Walks a lot at work. Mows her lawn. Used to go to the gym 4x/week. Knows she needs to go back to the gym but hard to fit in with work and other life things. No weight bearing exercise. Non-smoker. Never smoked or used tobacco. ETOH use: no ETOH 01/02/2025, Weight , BMI 11/21/2024, Weight 135lbs , BMI 23 (-5lbs) 10/24/2024, Weight 140lbs , BMI 24 09/26/2024, Weight 149lbs , BMI 25 (-21lbs) 07/25/2024, Weight 170lbs , BMI 29 (-14lbs) 05/23/2024: Weight 184 lbs, BMI 30: Patient referred to us from social media and [employer]. 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 Highest weight: 184 lbs Lowest weight: 150 lbs Goal weight: 140 lbs MARY ANN screening/[place]/[place]. Denies snoring. No concern for MARY ANN PCP: [facility] . Sees regularly. 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 Most recent was January [address] [facility]. * ROS: A ll Other Systems: Review of Systems (ROS) A ll others negative except those mentioned in HPI. * Medical History: A sthma, Heart attack, Weight gain/loss, Migraines. * Surgical History: c [place] section 01/2007. * Family History: F ather: . M other: alive. 1 sister(s) . 1 daughter(s) - healthy. . father - unknown mother-diabetes. * Social History: P t denies havintg any concerns with current iving situation denies tobacco use, alcohol use and recreational drug use. * Medications: T aking Topiramate 100 MG Tablet 1 tablet Orally Once a day , Taking Venlafaxine HCl 75 MG Tablet 1 tablet with food Orally Once a day , Taking Famotidine 40 MG Tablet as directed Orally , Taking Aspirin 81 81 MG Tablet Delayed Release 1 tablet Orally Once a day , Taking Wegovy 0.25 MG/0.5ML Solution Auto-injector 0.25mg Subcutaneous weekly , Medication List reviewed and reconciled with the patient * Allergies: M orphine: anaphylaxis. Objective: * Vitals: * Examination: G eneral Examination: GENERAL APPEARANCE: i n no acute distress, well developed, well nourished. H EAD: n ormocephalic, atraumatic. E YES: p upils equal, round, reactive to light and accommodation. E ARS: n ormal. O RAL CAVITY: m ucosa moist. T HROAT: c lear. N CAROLANN/THYROID: n carolann supple, full range of motion, no cervical lymphadenopathy. S KIN: n o suspicious lesions, warm and dry. H EART: n o murmurs, regular rate and rhythm, S1, S2 normal. L UNGS: c lear to auscultation bilaterally. A BDOMEN: n ormal, bowel sounds present, soft, nontender, nondistended. E XTREMITIES: n o clubbing, cyanosis, or edema. N EUROLOGIC: n onfocal, motor strength normal upper and lower extremities, sensory exam intact. Assessment: * Assessment: 1. O ther hyperlipidemia - E78.49 2 . M igraine without status migrainosus, not intractable, unspecified migraine type - G43.909 3 . P ast myocardial infarction - I25.2 4 . D ietary counseling and surveillance - Z71.3 5 . B DC 23.0-23.9, adult - Z68.23 #Weight Management 01/02/2025 Her BMI has normalized Will put her on low-dose Wegovy 0.25 mg twice a month for maintenance track down echo report from Total time spent today was 30 minutes of which greater than 50% was spent on coordinating and counseling Patient has been found to be normal with a BMI of (23). We are a board certified obesity and weight management practice Of note, some information is being carried forward from prior records for informational purposes only and is being cited so that efficiency, safety and quality of the patient's care is not compromised This note was prepared using voice recognition software and direct typing Please excuse inadvertent lead cargo mover or typing errors, or uncorrected word substitutions Although every attempt has been made by the provider to proofread this document, occasional misspellings and typographical errors may still be present Due to the previous pandemic, and the use of personal protective equipment (PPE) This may decrease voice recognition accuracy Inadvertent lead cargo mover errors may occur. Plan: * Treatment: * Procedure Codes: 9 9199 NO SHOW OFFICE VISIT * Images: Billing Information: * Visit Code: * Procedure Codes: 19839 NO SHOW OFFICE VISIT. * Electronic signature of ERIK RENNER on 08/04/2025 at 12:33 PM EDT Sign off status: Pending * Provider: Shawn RENNER NP Date: 0 01/02/2025 Generated for Carmita santos/Yoli/eTlaverneitting on: 0 08/04/2025 12:33 PM EDT History and Physical Notes * HPI (History of Present Illness) Category Sub-Category Detail Notes Category Not es Constitutional Patient is here today for a weight management f/u visit Patient seen and examined. Full past medical history, social history, family history, allergies and current medications were reviewed and updated. Body composition analysis reviewed today #Weight Management 01/02/2025 Patient has done quite well since May 2024, down over 50 pounds Has been off of Zepbound for a month now due to changing insurance to [employer] We discussed maintenance dosing moving forward I do not want her losing any more weight her BMI is at 23 and her weight is at 135 pounds Discussed low normal muscle mass utilizing plant based proteins, shakes, etc disc incorporating strength/resistance training, muscle building activities PMH: DC (2016) - reports she had a blood clot. Caused by stress. No atherosclerosis found. Venous sinus thrombosis sedcondary to control pills (2008) ASA 81 mg Rosuvastatin 40mg every day Topiramate Botox shots (for migraines) Sees cardiology annually Exercise: Not tracking steps daily. Walks a lot at work. Mows her lawn. Used to go to the gym 4x/week. Knows she needs to go back to the gym but hard to fit in with work and other life things. No weight bearing exercise. Non-smoker. Never smoked or used tobacco. ETOH use: no ETOH 01/02/2025, Weight , BMI 11/21/2024, Weight 135lbs , BMI 23 (-5lbs) 10/24/2024, Weight 140lbs , BMI 24 09/26/2024, Weight 149lbs , BMI 25 (-21lbs) 07/25/2024, Weight 170lbs , BMI 29 (-14lbs) 05/23/2024: Weight 184 lbs, BMI 30: Patient referred to us from social media and [employer]. 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 Highest weight: 184 lbs Lowest weight: 150 lbs Goal weight: 140 lbs MARY ANN screening/[facility]/[place]. Denies snoring. No concern for MARY ANN PCP: [facility] . Sees regularly. 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 Most recent was January [address] [facility]. Examination Category Sub-Category Detail Notes Category Not es General Examination GENERAL APPEARANCE: in no ac tribe distress, well developed, well nourished HEAD: normocephalic, [...]
--- OUTSIDE RECORDS SUMMARY | 2025-03-20 06:00 | XMS_ITS ---
Author Organization [facility] Address [address] [place] [address] Care Team Providers Care Proofer Name Role Phone IMELDA RENNER Unavailable [phone] Medications Medication SIG (Take, Route, Fr equency, Duration) Notes Start Date End Date Status Venlafaxine HCl 75 MG 1 tablet with food Orally Once a day Active Topiramate 100 MG 1 tablet Orally Once a day Active Zepbound 2.5 MG/0.5ML 2.5 mg weekly Subc utaneous Weekly; Duration: 30 days 02/06/2025 Active Aspirin 81 81 MG 1 tablet Orally Once a day Active Famotidine 40 MG as directed Orally Active Wegovy 0.25 MG/0.5ML 0.25mg Subcutaneous weekly; Duration: 30 days Active Encounters Encounter Location Date Provider Diagnosis [facility] [address] [place] [id number] 03/20/2025 IMELDA RENNER Other hyperlipidemia E78.49 ; [...] software and direct typing Please excuse inadvertent switch inspector or typing errors, or uncorrected word substitutions Although every attempt has been made by the provider to proofread this document, occasional misspellings and typographical errors may still be present Due to the previous pandemic, and the use of personal protective equipment (PPE) This may decrease voice recognition accuracy Inadvertent switch inspector errors may occur 03/20/2025 Migraine without status [...] software and direct typing Please excuse inadvertent switch inspector or typing errors, or uncorrected word substitutions Although every attempt has been made by the provider to proofread this document, occasional misspellings and typographical errors may still be present Due to the previous pandemic, and the use of personal protective equipment (PPE) This may decrease voice recognition accuracy Inadvertent switch inspector errors may occur 03/20/2025 Past myocardial infarction [...] software and direct typing Please excuse inadvertent switch inspector or typing errors, or uncorrected word substitutions Although every attempt has been made by the provider to proofread this document, occasional misspellings and typographical errors may still be present Due to the previous pandemic, and the use of personal protective equipment (PPE) This may decrease voice recognition accuracy Inadvertent switch inspector errors may occur 03/20/2025 Dietary counseling and [...] software and direct typing Please excuse inadvertent switch inspector or typing errors, or uncorrected word substitutions Although every attempt has been made by the provider to proofread this document, occasional misspellings and typographical errors may still be present Due to the previous pandemic, and the use of personal protective equipment (PPE) This may decrease voice recognition accuracy Inadvertent switch inspector errors may occur 03/20/2025 BMI 21.0-21.9, adult [...] software and direct typing Please excuse inadvertent switch inspector or typing errors, or uncorrected word substitutions Although every attempt has been made by the provider to proofread this document, occasional misspellings and typographical errors may still be present Due to the previous pandemic, and the use of personal protective equipment (PPE) This may decrease voice recognition accuracy Inadvertent switch inspector errors may occur Plan Of Treatment No Information Progress Notes * Ana BHAGATraDOB:[birth year] (45 yo F)Acc No.[id number]:03/20/2025 Patient: Kelsey RESTREPO Provider: Shawn RENNER NP :1980 A ge:44 Y S ex:Female Date:03/20/2025 Address:[facility] [address], [facility] Subjective: * Chief Complaints: * * HPI: C onstitutional: Patient is here [...] incorporating strength/resistance training, muscle building activities PMH: [place] (2016) - reports she had a blood [...] lbs Goal weight: 140 lbs MARY ANN screening/STOP-BANG/[place]. Denies snoring. No concern for MARY ANN PCP: [facility] . Sees regularly. 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 Most recent was January 2024 through [facility]. * ROS: A ll Other Systems: Review of Systems (ROS) A ll others negative except those mentioned in HPI. * Medical History: * Medications: T aking Wegovy 0.25 MG/0.5ML Solution Auto-injector 0.25mg Subcutaneous [...] 2.5 mg weekly Subcutaneous Weekly Objective: * Vitals: * Examination: G eneral [...] and surveillance - Z71.3 5 . B [place] 21.0-21.9, adult - Z68.21 #Weight Management 03/20/2025 [...] software and direct typing Please excuse inadvertent switch inspector or typing errors, or uncorrected word substitutions Although every attempt has been made by the provider to proofread this document, occasional misspellings and typographical errors may still be present Due to the previous pandemic, and the use of personal protective equipment (PPE) This may decrease voice recognition accuracy Inadvertent switch inspector errors may occur Plan: * Treatment: * Procedure Codes: 9 9199 NO SHOW OFFICE VISIT * Images: Billing Information: * Visit Code: * Procedure Codes: 69809 NO SHOW OFFICE VISIT. * Electronic signature of ERIK RENNER on 08/04/2025 at 12:33 PM EDT Sign off status: Pending * Provider: Shawn RENNER NP Date: 0 03/20/2025 Generated for Carmita santos/Yoli/eTransmitting on: 0 08/04/2025 12:33 PM EDT History [...] incorporating strength/resistance training, muscle building activities PMH: [place] (2017) - reports she had a blood [...] lbs Goal weight: 140 lbs MARY ANN screening/STOP-BANG/[place]. Denies snoring. No concern for MARY ANN PCP: [facility] . Sees regularly. 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 Most recent was January 2024 through [facility]. Examination Category Sub-Category Detail Notes Category Not [...]
--- NOTE | 2025-08-04 11:14 | A.OFFVIS_ITS ---
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 Medication List - Last Reconciled 08/04/25 by AARON WoodardP- amoxicillin-pot clavulanate 875-125 mg 1 tab PO Q12H 10 days aspirin 81 mg PO DAILY 90 days cyclobenzaprine 5 mg PO TID PRN famotidine 40 mg PO DAILY ibuprofen 600 mg PO Q6H PRN meclizine 25 mg PO TID PRN oxycodone 5 mg PO Q6H PRN pyridoxine (vitamin B6) 100 mg PO DAILY 90 days rosuvastatin 40 mg PO DAILY tamsulosin (Flomax) 0.4 mg PO BEDTIME topiramate 100 mg PO BID venlafaxine ER mg PO HPI Comments Details: Kelsey is a pleasant 45-year-old female patient of Dr. Mccallum who was accompanied by her daughter at today's office visit. She has a past medical history of hyperlipidemia, NSTEMI, and anemia. She presents to the office today as a new patient for nephrolithiasis. In discussion with the patient today she reports sometime in February seeking emergency room care for right-sided flank pain she had been experiencing at which time a CT was ordered and recommendations were made for urology referral for further assessment evaluation. These results were reviewed and communicated with the patient today. 02/27 there are nonobstructing bilateral renal calculi, largest of which is in the inferior pole right kidney measuring 4 mm. Mild right hydro proximal right ureteral calculus measuring 4 mm in diameter. She reports shortly after her ER visit she did pass her kidney stone however did not bring it to the office today. She does report a previous history of nephrolithiasis however never requiring surgical intervention. We did discussed at length potential causes of nephrolithiasis as well as further interventions and risks and benefits of these interventions. She denies any bothersome urinary issues. She denies urinary urgency, urinary frequency, incontinence, nocturia, hematuria, dysuria, foul smelling urine, changes to urinary stream, flank pain, fever, and or chills.She is happy with her current voiding parameters. She reports being a vegetarian and finds it difficult to manage her diet. She also discusses her recent coccyx surgery. All questions were answered. She otherwise offers no other issues or concerns at this time. [facility] Medical History HLD (hyperlipidemia) Dural venous sinus thrombosis NSTEMI (non-ST elevated myocardial infarction) Surgical History Hx of cardiac cath Hx of carpal tunnel repair Family History Father No problems noted. Mother HTN (hypertension) Social History Alcohol intake: never Patient Tobacco Use Status: Never used Tobacco Review of Systems Const All systems reviewed & are unremarkable except as noted in HPI and below Physical Exam Const General: cooperative, healthy appearing, comfortable, no acute distress, well developed, alert and awake Orientation/consciousness: patient oriented x3 Limitations: no limitations HEENT Head: Yes normal to inspection, Yes normocephalic and Yes atraumatic Ears: hearing grossly normal bilaterally Eyes General: appearance normal, both eyes and all related structures Neck Neck: Yes normal visual inspection and Yes trachea midline Chest Chest palpation & inspection: normal inspection of the chest Resp Effort & Inspection: normal respiratory effort and able to speak in complete sentences Cardio Rate: regular rate GI Inspection: Yes normal to inspection General: Yes no CVA tenderness Back/Spine/Pelvis Back: no CVA tenderness Skin General skin exam: no rashes or lesions noted Neuro General: patient oriented x3 Extrem General: Yes normal to inspection Psych Appearance: grossly normal and well kempt Mental Status: mental status grossly normal Speech and movement: Normal speech and movement present and Clear speech present Affect: normal affect Attitude: cooperative Thought process: Normal thought process present Thought content: Normal thought content present Insight: Fair insight present (Psych) Judgement: Fair judgement present (Psych) Office Procedures Post Void Residual Post Residual Void Post Void Residual (PVR): 52 31265-[id number] Void Residual by ultrasound Results AMB Urinalysis, Automated UA Leukoctes 0 Caro/uL Last Edit by BRITT Land on 08/04/25 11:32 UA Nitrite Last Edit by Richa Phelps [facility] on 08/04/25 11:32 UA Urobilinogen 0.2 mg/dL Last Edit by Richa Phelps [facility] on 08/04/25 11:3 2 UA Protein 30 mg/dL Last Edit by Richa Phelps [facility] on 08/04/25 11:32 UA pH 6.0 Last Edit by Richa Phelps [facility] on 08/04/25 11:32 UA Blood 0 Fuad/uL Last Edit by Richa Phelps [facility] on 08/04/25 11:32 UA Specific [place] 1.025 Last Edit by Richa Phelps [facility] on 08/04/25 11: 32 UA Ketone Last Edit by Richa Phelps [facility] on 08/04/25 11:32 UA Bilirubin 0 mg/dL Last Edit by Richa Phelps [facility] on 08/04/25 11:32 UA Glucose 0 mg/dL Last Edit by Richa Phelps [facility] on 08/04/25 11:32 Results Reviewed Results Reviewed: Laboratory Last Values Urine pH (Auto) 6.0 08/04/25 11:31 Specific [place] (Auto) 1.025 08/04/25 11:31 Urine Protein (Auto) 30 mg/dL 08/04/25 11:31 Glucose (UA)(Auto) 0 mg/dL 08/04/25 11:31 Urine Blood (Auto) 0 Fuad/uL 08/04/25 11:31 Urine Bilirubin (Auto) 0 mg/dL 08/04/25 11:31 Urine Urobilinogen (Auto) 0.2 mg/dL 08/04/25 11:31 Leukocyte Esterase (Auto) 0 Caro/uL 08/04/25 11:31 Date of Service: 02/06/25 Procedure(s): CT abdomen pelvis wo IV con Findings: The lung bases are clear. Gallbladder is within normal limits. There are nonobstructing bilateral renal calculi, largest of which is in the inferior pole right kidney measuring 4 mm diameter. Mild right hydronephrosis. Proximal right ureteral calculus measuring 4 mm diameter. Solid organs are within normal limits otherwise. No bowel obstruction, pneumoperitoneum, or pneumatosis. Pelvic contents unremarkable. Normal appendix. No acute fracture. IMPRESSION: 1. Proximal right ureteral calculus associated with mild right hydronephrosis. 2. Nonobstructing bilateral renal calculi. Assessment & Plan Assessment & Plan (1) Calculus of kidney: Code(s): N20.0 - Calculus of kidney Category: Medical Plan In office urinalysis results reviewed with the patient today; as noted above. We discussed potential causes of nephrolithiasis as well as further treatment options and risks and benefits of these treatment options. We discussed bringing stone to office for stone analysis Will obtain Litholink for further assessment evaluation. Will obtain renal ultrasound for further assessment evaluation. We discussed at length the importance of adequate hydration relation to nephrolithiasis as well as overall health and well-being. We discussed adding 1 oz of lemon juice to water daily. She currently denies any bothersome urinary issues. She reports be happy with current voiding parameters. Start vitamin B6 as discussed and prescribed. All questions were answered. Follow-up in 3 months with imaging, Litholink, and labs; or sooner with any issues, concerns, and or questions. Orders: Orders Basic Metabolic Panel Today N20.0 - Calculus of kidney Magnesium Today N20.0 - Calculus of kidney Parathyroid Hormone Intact Today N20.0 - Calculus of kidney Phosphorus Today N20.0 - Calculus of kidney AMB Post Void Residual by ultrasound Today N28.89 - Other specified disorders of kidney and ureter AMB Urinalysis Automated Today Z13.9 - Encounter for screening, unspecified Calcium Today N20.0 - Calculus of kidney URORISK Today N20.0 - Calculus of kidney Uric Acid Today N20.0 - Calculus of kidney Vitamin D 25-OH Total Today N20.0 - Calculus of kidney US renal BI Today N20.0 - Calculus of kidney Medications: New pyridoxine (vitamin B6) 100 mg PO DAILY 90 tabs 1RF 90 days Discontinued amoxicillin-pot clavulanate 875-125 mg Discontinued Reason: Patient Completed Course 1 tab PO Q12H 10 days 20 tabs 0RF ibuprofen Discontinued Reason: Patient Completed Course 600 mg PO Q6H PRN 30 tabs 0RF fever or pain tamsulosin (Flomax) Discontinued Reason: Patient Completed Course 0.4 mg PO BEDTIME 7 caps 0RF oxycodone Partial Fill upon patient request. Discontinued Reason: Patient Completed Course 5 mg PO Q6H PRN 20 tabs 0RF pain Patient Instructions: The patient had an opportunity to ask questions regarding the treatment plan. All questions were answered. Physical exam, labs, and imaging were discussed and reviewed in detail. As well as risks, benefits, and discussion of treatment choices. No major barriers to understanding were identified. The patient expressed understanding and agreement with the above treatment plan. The patient was made aware they should contact our office by phone for worsening of their current condition, the appearance of new symptoms, or with any questions or concerns. Compliance is encouraged with any medications and follow up testing that is ordered. It is a privilege to be allowed the opportunity to participate in? your urological care.? Again, if you have any questions or concerns If you have any questions or concerns please do not hesitate to contact me. The office is [phone]. This note is constructed using voice recognition software. While every effort has been made to ensure accuracy work over rig operator errors may have been included. Yours sincerely, SHELLI Woodard Coding Level of Care Code New Pt Level 4 (19054) Diagnoses Calculus of kidney N20.0 CPT Codes Post Residual Void - PVR CPT Code: 62665-Ntfx Void Residual by ultrasound ([id number])
--- OUTSIDE RECORDS SUMMARY | 2025-08-04 12:33 | XMS_ITS | Clinical Summary ---
Author Organization [facility] Address [address] [place] [phone] Phone Care Team Providers Care Natural Gas Inspector Name Role Phone Emmanuel Mccallum MD Unavailable [phone] Emmanuel Mccallum MD Primary Care Provider [phone] Allergies Active Allergy Reactions Criticality Noted Date Comments Morphine Hives 01/06/2016 Medications ipratropium-albu terol (COMBIVENT) 18-103 mcg/actuation inhaler Inhale 2 puffs into the lungs every 6 (six) hours as needed for wheezing. Active POLYETHYLENE GLYCOL 3350 (MIRALAX ORAL) Take by mouth daily. Active tiZANidine (ZANAFLEX) 2 MG tablet TAKE 1/2 TO 1 (ONE-HALF TO ONE) TABLET BY MOUTH ONCE DAILY AT NIGHT NEEDED . MAY CAUSE SEDATION. 15 tablet 3 07/02/2019 Active metoprolol succinate (TOPROL-XL) 25 MG 24 hr tablet Take 25 mg by mouth daily. Active aspirin 81 MG EC tablet Take 81 mg by mouth daily. Active doxycycline monohydrate (MONODOX) 50 MG capsule Take 50 mg by mouth daily. Active atorvastatin (LIPITOR) 80 MG tablet Take 80 mg by mouth daily. Active rimegepant (NURTEC ODT) 75 mg tabletIndication s:Intractable chronic migraine without aura and without status migrainosus Take 1 tablet (75 mg total) by mouth once as needed for migraine. 8 tablet 5 08/06/2024 Active topiramate (TOPAMAX) 100 MG tabletIndication s:Intractable chronic migraine without aura and without status migrainosus Take 1 tablet by mouth twice daily 180 tablet 1 05/05/2025 Active Active Problems Problem Noted Date Diagnosed Date Hypertension 10/09/2019 Social History Tobacco Use Types Packs/Day Years Used Date Smoking Tobacco: Never Smokeless Tobacco: Never Tobacco Cessation:Counseling Given: Not Answered Education Answer Date Recorded Are you interested [...] Orientation Straight 04/07/2020 3: 57 PM EDT Last Filed Vital Signs Vital Sign Reading Time Taken Comments Blood Pressure 129/83 10/09/2019 12:10 PM EST Pulse 77 10/09/2019 12:10 PM EST Temperature 35.5 C (95.9 F) 09/30/2024 12:12 PM EST Respiratory Rate - - Oxygen Saturation 100% 10/09/2019 12:10 PM EST Inhaled Oxygen Concentration - - Weight 82.1 kg (181 lb) 10/09/2019 12:10 PM EST Height 167.6 cm (5' 6 ) 10/09/2019 12:10 PM EST Body Mass Index 29.21 10/09/2019 12:10 PM EST Plan of Treatment Health Maintenance Due Date Last Done Comments BLOOD PRESSURE 1979 LIPID PANEL 1979 DEPRESSION SCREENING 1991 HEPATITIS C SCREENING 1997 HIV ONE-TIME SCREENING (18-65 YEARS) 1997 PAP SMEAR 2000 MAMMOGRAM 2019 Adult Td,Tdap Booster 07/02/2023 07/02/2013 , 07/02/2013, 05/04/2010 COLOGUARD 2024 COLONOSCOPY 2024 COLORECTAL CANCER SCREENING 2024 FIT TEST 2024 FOBT 2024 SIGMOIDOSCOPY 2024 VIRTUAL COLONOSCOPY 2024 COVID-19 VACCINE ( season) 2024 12/11/2020, 12/11/2020 INFLUENZA VACCINE (#1) 2025 , 07/26/2020, 08/07/2019, Additional history exists PNEUMOCOCCAL VACCINES (0-49 years) Aged Out 07/08/2014 No longer eligible based on patient's age to complete this topic SMOKING STATUS SCREENING (Once After 26 Yrs) Completed 09/30/2024 HEPATITIS A VACCINES Aged Out No long er eligible based on patient's age to complete this topic HIB VACCINES Aged Out No longer eligi ble based on patient's age to complete this topic MENINGOCOCCAL VACCINES (ACWY) Aged Out No longer eligible based on patient's age to complete this topic MENINGOCOCCAL VACCINES (B) Aged Out N o longer eligible based on patient's age to complete this topic Medical Devices Not on file Insurance Care Teams Natural Gas Inspector Relationship Specialty Start Date End Date Emmanuel Mccallum MD [address] [place] [phone] PCP - General 07/31/19 Emmanuel Mccallum MD [address] [place] [id number] Internal Medicine 07/07/19 Additional Source Comments The information contained in this document represents components of the legal health record. It is not the complete legal health record.[facility]
--- OUTSIDE RECORDS SUMMARY | 2025-08-04 12:33 | XMS_ITS | Encounter Summary ---
Author Organization [facility] Address [address] [place] [id number] Phone Care Team Providers Care Vegetable Worker Name Role Phone Fay Osorio MD Primary Care Provider [phone] Emmanuel Mccallum MD Unavailable [phone] Emmanuel Mccallum MD Primary Care Provider [phone] Encounter Details Date Type Department Care Team (Late st Contact Info) Description 05/11/2017 Procedure Pass [facility] [address] [place] [address] Social History Tobacco Use Types Packs/Day Years Used Date Smoking Tobacco: Never Comments Unknown Sex and Gender Information Value Date Recorded Sex Assigned at Female 04/07/2020 3:57 PM EDT Legal Sex Female 10:39 AM EDT Gender Identity Female 04/07/2020 3:57 PM EDT Sexual Orientation Straight 04/07/2020 3: 57 PM EDT documented as of this encounter Plan of Treatment Not on file documented as of this encounter Visit Diagnoses Not on filedocumented in this encounter Care Teams Vegetable Worker Relationship Specialty Start Date End Date Fay Osorio MD [address] [place] [address] PCP - General Internal Medicine 01/06/16 07/14/19 Emmanuel Mccallum MD [address] [place] [address] PCP - General 07/31/19 Emmanuel Mccallum MD [address] [place] [phone] Internal Medicine 07/07/19 documented as of this encounter Additional Source Comments The information contained in this document represents components of the legal health record. It is not the complete legal health record.[facility]
--- OUTSIDE RECORDS SUMMARY | 2025-08-04 12:33 | XMS_ITS | Encounter Summary ---
Author Organization [facility] Address [address] [place] [address] Phone Care Team Providers Care Product Test Specialist Name Role Phone Fay Osorio MD Primary Care Provider [phone] Emmanuel Mccallum MD Unavailable [phone] Emmanuel Mccallum MD Primary Care Provider [phone] Encounter Details Date Type Department Care Team (Late st Contact Info) Description 05/17/2017 Procedure Pass [facility] [address] [place] [address] Social History Tobacco Use Types Packs/Day Years [...] on filedocumented in this encounter Care Teams Product Test Specialist Relationship Specialty Start Date End Date Fay Osorio MD [address] [place] [address] PCP - General Internal Medicine 01/06/16 07/14/19 Emmanuel Mccallum MD [address] [place] [id number] PCP - General 07/31/19 Emmanuel Mccallum MD [address] [place] [phone] Internal Medicine 07/07/19 documented as of this encounter Additional Source Comments The information contained in this document represents components of the legal health record. It is not the complete legal health record.[facility]
--- OUTSIDE RECORDS SUMMARY | 2025-08-04 12:33 | XMS_ITS | Encounter Summary ---
Author Organization [facility] Address [address] [place] [address] Phone Care Team Providers Care Director Of Automation Name Role Phone Emmanuel Mccallum MD Unavailable [phone] Emmanuel Mccallum MD Primary Care Provider [phone] Encounter Details Date Type Department Care Team (Late st Contact Info) Description 03/13/2023 Telephone [facility] [address] [address] Christiana Huff MD [address] [address] [email or web address] Social History Tobacco Use Types Packs/Day Years Used Date Smoking Tobacco: Never Smokeless Tobacco: Never Education Answer Date Recorded Are you interested in more education? Not on bina e 03/02/2023 Are you concerned about learning? Not on file 03/02/2023 No 03/02/2023 No 03/02/2023 Comments Unknown Sex and Gender Information Value [...] on filedocumented in this encounter Care Teams Director Of Automation Relationship Specialty Start Date End Date Emmanuel Mccallum MD [address] [place] [phone] PCP - General 07/31/19 Emmanuel Mccallum MD [address] [place] [id number] Internal Medicine 07/07/19 documented as of this encounter Additional Source Comments The information contained in this document represents components of the legal health record. It is not the complete legal health record.[facility]
--- OUTSIDE RECORDS SUMMARY | 2025-08-04 12:34 | XMS_ITS | Patient Health Record ---
Author Organization [facility] [address] Address [address] [place] [address] Care Team Providers Care Child And Family Therapist Name Role Phone IMELDA RENNER Unavailable [phone] MARTINJASSI PERKINS Unavailable [phone] DICK YOST Unavailable [phone] Allergies Allergen (clinical drug ingredient) Drug/Non Drug Allergy documented on EMR Reaction Allergy Type Onset Date Status morphine Morphine anaphylaxis Drug Allergy Activ e Reason For Referral No Information Medications Medication SIG (Take, Route, Frequency, Duration) Notes Start Date End Date Status Wegovy 0.25 MG/0.5ML 0.25mg Subcutaneous weekly; Duration: 30 days Not-Ta alissa Famotidine 40 MG as directed Orally Not-Taking Esomeprazole Magnesium 20 MG 1 capsule 1/2 to 1 hour before morning meal Orally Once a day Active Linzess 290 MCG 1 capsule at least 3 0 minutes before the first meal of the day on an empty stomach Orally Once a day Active traMADol HCl 50 MG 1 tablet as needed O rally Once a day Active Aspirin 81 81 MG 1 tablet Orally Once a day Active Zepbound 2.5 MG/0.5ML INJECT 2.5 MG SUBCUTANEOUSLY ONCE A WEEK; Duration: 56 Active Topiramate 100 MG 1 tablet Orally Once a day Active Venlafaxine HCl 75 MG 1 tablet with food Orally Once a day Active Problems Problem Type SNOMED Code ICD Code Onset Dates Problem Status W/U Status Risk Notes Problem Obesity due to exces s calories (102909406) Other obesity due to excess calories (E66.09) Active confirmed Problem Overweight (951067261) Overweigh t (E66.3) Active confirmed Problem Migraine (13554219) Migraine wit hout status migrainosus, not intractable, unspecified migraine type (G43.909) Active confirmed Problem Hyperlipidemia (29482283) Other hyperlipidemia (E78.49) Active confirmed Problem Body mass index 30+ - obesity (511764132) Body mass index [BMI] 30.0-30.9, adult (Z68.30) Active confirmed Problem Mixed anxiety and depressive disorder (367800634) Depression with anxiety (F41.8) Active confirmed Problem Gastroesophageal reflux disease (418547206) GERD without esophagitis (K21.9) Active confirmed Problem Pure hypercholesterolemia (291665244) Elevated LDL cholesterol level (E78.00) Active confirmed Problem Old myocardial infarction (7603145) Past myocardial infarction (I25.2) Active confirmed Problem Episodic migraine (126091109359432) Episodic migraine (G43.9) Active confirmed Vital Signs Heart Rate 99 /min 06/26/2025 Oximetry 97 % 06/26/2025 Blood pressure diastolic 60 mm Hg 06/26/2025 Height 64 in 06/26/2025 Blood pressure systolic 90 mm Hg 06/26/2025 Weight 131.8 lbs 06/26/2025 BMI 22.62 kg/m2 06/26/2025 Encounters Encounter Location Date Provider Diagnosis [facility] [address] [address] 03/20/2025 IMELDA RENNER Other hyperlipidemia E78.49 ; Migraine without status migrainosus, not intractable, unspecified migraine type G43.909 ; Past myocardial infarction I25.2 ; Dietary counseling and surveillance Z71.3 and BMI 21.0-21.9, adult Z68.21 [facility] [address] 09/26/2024 IMELDA RENNER Overweight E66.3 ; B MO 25.0-25.9,adult Z68.25 ; Dietary counseling and surveillance Z71.3 ; Other hyperlipidemia E78.49 ; Past myocardial infarction I25.2 and Migraine without status migrainosus, not intractable, unspecified migraine type G43.909 [facility] [address] [address] 10/24/2024 DICK YOST Overweight E66.3 ; B MO 24.0-24.9, adult Z68.24 ; Nutritional counseling Z71.3 ; Elevated LDL cholesterol level E78.00 ; GERD without esophagitis K21.9 ; Episodic migraine G43.909 and Depression with anxiety F41.8 [facility] [address] [address] 11/21/2024 IMELDA BORHOT Other hyperlipidemia E78.49 ; Migraine without status migrainosus, not intractable, unspecified migraine type G43.909 ; Past myocardial infarction I25.2 ; Dietary counseling and surveillance Z71.3 and BMI 23.0-23.9, adult Z68.23 [facility] [address] [address] 02/06/2025 IMELDA BORHOT Other hyperlipidemia E78.49 ; Migraine without status migrainosus, not intractable, unspecified migraine type G43.909 ; Past myocardial infarction I25.2 ; Dietary counseling and surveillance Z71.3 and BMI 21.0-21.9, adult Z68.21 [facility] [address] [address] 05/15/2025 IMELDA BORHOT Other hyperlipidemia E78.49 ; Migraine without status migrainosus, not intractable, unspecified migraine type G43.909 ; Past myocardial infarction I25.2 ; Dietary counseling and surveillance Z71.3 ; BMI 21.0-21.9, adult Z68.21 and Encounter for examination of blood pressure without abnormal findings Z01.30 [facility] [address] [address] 06/26/2025 IMELDA BORHOT Other hyperlipidemia E78.49 ; Migraine without status migrainosus, not intractable, unspecified migraine type G43.909 ; Past myocardial infarction I25.2 ; Dietary counseling and surveillance Z71.3 ; BMI 21.0-21.9, adult Z68.21 and Encounter for examination of blood pressure without abnormal findings Z01.30 [facility] [address] [address] 11/11/2024 IMELDA ELOISEHOT [facility] [address] [address] 11/14/2024 JASSI MARTIN [facility] [address] [address] 01/05/2025 IMELDA RENNER [facility] [address] [facility] [address] [place] [address] 01/06/2025 MIELDA RENNER [facility] [address] [facility] [address] [place] [address] 03/23/2025 IMELDA RENNER [facility] [address] [facility] [address] [place] [address] 05/15/2025 IMELDA RENNER [facility] [address] [facility] [address] [place] [address] 08/04/2025 IMELDA RENNER Assessments Encounter Date Diagnosis (ICD Code) Assessment [...] minimum of 6 months The most recent [employer] Association of clinical endocrinologists and [employer] College of endocrinology guidelines recommend patients who [...] software and direct typing Please excuse inadvertent dehairer or typing errors, or uncorrected word substitutions Although every attempt has been made by the provider to proofread this document, occasional misspellings and typographical errors may still be present Due to the previous pandemic, and the use of personal protective equipment (PPE) This may decrease voice recognition accuracy Inadvertent dehairer errors may occur 09/26/2024 BMI 25.0-25.9,adult (ICD-10 [...] minimum of 6 months The most recent [employer] Association of clinical endocrinologists and [employer] College of endocrinology guidelines recommend patients who [...] software and direct typing Please excuse inadvertent dehairer or typing errors, or uncorrected word substitutions Although every attempt has been made by the provider to proofread this document, occasional misspellings and typographical errors may still be present Due to the previous pandemic, and the use of personal protective equipment (PPE) This may decrease voice recognition accuracy Inadvertent dehairer errors may occur 10/24/2024 Overweight (ICD-10 - [...] Dictation was accomplished with the use of [employer] voice recognition software, which is prone to [...] Dictation was accomplished with the use of [employer] voice recognition software, which is prone to [...] minimum of 6 months The most recent [employer] Association of clinical endocrinologists and [employer] College of endocrinology guidelines recommend patients who [...] software and direct typing Please excuse inadvertent dehairer or typing errors, or uncorrected word substitutions Although every attempt has been made by the provider to proofread this document, occasional misspellings and typographical errors may still be present Due to the previous pandemic, and the use of personal protective equipment (PPE) This may decrease voice recognition accuracy Inadvertent dehairer errors may occur 02/06/2025 Other hyperlipidemia (ICD-10 [...] software and direct typing Please excuse inadvertent dehairer or typing errors, or uncorrected word substitutions Although every attempt has been made by the provider to proofread this document, occasional misspellings and typographical errors may still be present Due to the previous pandemic, and the use of personal protective equipment (PPE) This may decrease voice recognition accuracy Inadvertent dehairer errors may occur 03/20/2025 Other hyperlipidemia (ICD-10 - E78.49) #Weight [...] software and direct typing Please excuse inadvertent dehairer or typing errors, or uncorrected word substitutions Although every attempt has been made by the provider to proofread this document, occasional misspellings and typographical errors may still be present Due to the previous pandemic, and the use of personal protective equipment (PPE) This may decrease voice recognition accuracy Inadvertent dehairer errors may occur 05/15/2025 Other hyperlipidemia (ICD-10 - E78.49) #Weight Management 05/15/2025 Fat mass is down and muscle mass is up 2.5 pounds which is assuring follow labs, CPE with PCP upcoming Zepbound to 2.5mg every 2 weeks to maintain weight , 50% reduction Discussed increasing protein intake and add creatine for muscle maintenance Her BMI has normalized track down echo report from Total time spent today was 30 minutes of which greater than 50% was spent on coordinating and counseling Patient has been found to be normal with a BMI of (21.9). We are a board certified obesity and weight management practice Of note, some information is being carried forward from prior records for informational purposes only and is being cited so that efficiency, safety and quality of the patient's care is not compromised This note was prepared using voice recognition software and direct typing Please excuse inadvertent dehairer or typing errors, or uncorrected word substitutions Although every attempt has been made by the provider to proofread this document, occasional misspellings and typographical errors may still be present Due to the previous pandemic, and the use of personal protective equipment (PPE) This may decrease voice recognition accuracy Inadvertent dehairer errors may occur 06/26/2025 Other hyperlipidemia (ICD-10 - E78.49) #Weight Management 06/26/2025 Patient unfortunately changed jobs and now longer has insurance Will not be able to see us in the interim Discussed she could come back and see us at any time When she is established and has insurance again Total time spent today was 30 minutes of which greater than 50% was spent on coordinating and counseling Patient has been found to be normal with a BMI of (21.9). We are a board certified obesity and weight management practice Of note, some information is being carried forward from prior records for informational purposes only and is being cited so that efficiency, safety and quality of the patient's care is not compromised This note was prepared using voice recognition software and direct typing Please excuse inadvertent dehairer or typing errors, or uncorrected word substitutions Although every attempt has been made by the provider to proofread this document, occasional misspellings and typographical errors may still be present Due to the previous pandemic, and the use of personal protective equipment (PPE) This may decrease voice recognition accuracy Inadvertent dehairer errors may occur 06/26/2025 Migraine without status migrainosus, not intractable, unspecified migraine type (ICD-10 - G43.909) #Weight Management 06/26/2025 Patient unfortunately changed jobs and now longer has insurance Will not be able to see us in the interim Discussed she could come back and see us at any time When she is established and has insurance again Total time spent today was 30 minutes of which greater than 50% was spent on coordinating and counseling Patient has been found to be normal with a BMI of (21.9). We are a board certified obesity and weight management practice Of note, some information is being carried forward from prior records for informational purposes only and is being cited so that efficiency, safety and quality of the patient's care is not compromised This note was prepared using voice recognition software and direct typing Please excuse inadvertent dehairer or typing errors, or uncorrected word substitutions Although every attempt has been made by the provider to proofread this document, occasional misspellings and typographical errors may still be present Due to the previous pandemic, and the use of personal protective equipment (PPE) This may decrease voice recognition accuracy Inadvertent dehairer errors may occur 05/15/2025 Migraine without status migrainosus, not intractable, unspecified migraine type (ICD-10 - G43.909) #Weight Management 05/15/2025 Fat mass is down and muscle mass is up 2.5 pounds which is assuring follow labs, CPE with PCP upcoming Zepbound to 2.5mg every 2 weeks to maintain weight , 50% reduction Discussed increasing protein intake and add creatine for muscle maintenance Her BMI has normalized track down echo report from Total time spent today was 30 minutes of which greater than 50% was spent on coordinating and counseling Patient has been found to be normal with a BMI of (21.9). We are a board certified obesity and weight management practice Of note, some information is being carried forward from prior records for informational purposes only and is being cited so that efficiency, safety and quality of the patient's care is not compromised This note was prepared using voice recognition software and direct typing Please excuse inadvertent dehairer or typing errors, or uncorrected word substitutions Although every attempt has been made by the provider to proofread this document, occasional misspellings and typographical errors may still be present Due to the previous pandemic, and the use of personal protective equipment (PPE) This may decrease voice recognition accuracy Inadvertent dehairer errors may occur 03/20/2025 Migraine without status [...] software and direct typing Please excuse inadvertent dehairer or typing errors, or uncorrected word substitutions Although every attempt has been made by the provider to proofread this document, occasional misspellings and typographical errors may still be present Due to the previous pandemic, and the use of personal protective equipment (PPE) This may decrease voice recognition accuracy Inadvertent dehairer errors may occur 02/06/2025 Migraine without status [...] software and direct typing Please excuse inadvertent dehairer or typing errors, or uncorrected word substitutions Although every attempt has been made by the provider to proofread this document, occasional misspellings and typographical errors may still be present Due to the previous pandemic, and the use of personal protective equipment (PPE) This may decrease voice recognition accuracy Inadvertent dehairer errors may occur 11/21/2024 Migraine without status [...] minimum of 6 months The most recent [employer] Association of clinical endocrinologists and [employer] College of endocrinology guidelines recommend patients who [...] software and direct typing Please excuse inadvertent dehairer or typing errors, or uncorrected word substitutions Although every attempt has been made by the provider to proofread this document, occasional misspellings and typographical errors may still be present Due to the previous pandemic, and the use of personal protective equipment (PPE) This may decrease voice recognition accuracy Inadvertent dehairer errors may occur 10/24/2024 Nutritional counseling (ICD-10 [...] Dictation was accomplished with the use of [employer] voice recognition software, which is prone to [...] minimum of 6 months The most recent [employer] Association of clinical endocrinologists and [employer] College of endocrinology guidelines recommend patients who [...] software and direct typing Please excuse inadvertent dehairer or typing errors, or uncorrected word substitutions Although every attempt has been made by the provider to proofread this document, occasional misspellings and typographical errors may still be present Due to the previous pandemic, and the use of personal protective equipment (PPE) This may decrease voice recognition accuracy Inadvertent dehairer errors may occur 09/26/2024 Other hyperlipidemia (ICD-10 [...] minimum of 6 months The most recent [employer] Association of clinical endocrinologists and [employer] College of endocrinology guidelines recommend patients who [...] software and direct typing Please excuse inadvertent dehairer or typing errors, or uncorrected word substitutions Although every attempt has been made by the provider to proofread this document, occasional misspellings and typographical errors may still be present Due to the previous pandemic, and the use of personal protective equipment (PPE) This may decrease voice recognition accuracy Inadvertent dehairer errors may occur 10/24/2024 Elevated LDL cholesterol [...] Dictation was accomplished with the use of [employer] voice recognition software, which is prone to medical misidentifications and grammatical errors. This are unintentional and the practitioner does try to identify and correct these, but some could still be present. Please do not hesitate to contact practitioner for clarification. 11/21/2024 Past myocardial infarction (ICD-10 - I25.2) [...] minimum of 6 months The most recent [employer] Association of clinical endocrinologists and [employer] College of endocrinology guidelines recommend patients who [...] software and direct typing Please excuse inadvertent dehairer or typing errors, or uncorrected word substitutions Although every attempt has been made by the provider to proofread this document, occasional misspellings and typographical errors may still be present Due to the previous pandemic, and the use of personal protective equipment (PPE) This may decrease voice recognition accuracy Inadvertent dehairer errors may occur 02/06/2025 Past myocardial infarction [...] software and direct typing Please excuse inadvertent dehairer or typing errors, or uncorrected word substitutions Although every attempt has been made by the provider to proofread this document, occasional misspellings and typographical errors may still be present Due to the previous pandemic, and the use of personal protective equipment (PPE) This may decrease voice recognition accuracy Inadvertent dehairer errors may occur 03/20/2025 Past myocardial infarction [...] software and direct typing Please excuse inadvertent dehairer or typing errors, or uncorrected word substitutions Although every attempt has been made by the provider to proofread this document, occasional misspellings and typographical errors may still be present Due to the previous pandemic, and the use of personal protective equipment (PPE) This may decrease voice recognition accuracy Inadvertent dehairer errors may occur 05/15/2025 Past myocardial infarction (ICD-10 - I25.2) #Weight Management 05/15/2025 Fat mass is down and muscle mass is up 2.5 pounds which is assuring follow labs, CPE with PCP upcoming Zepbound to 2.5mg every 2 weeks to maintain weight , 50% reduction Discussed increasing protein intake and add creatine for muscle maintenance Her BMI has normalized track down echo report from Total time spent today was 30 minutes of which greater than 50% was spent on coordinating and counseling Patient has been found to be normal with a BMI of (21.9). We are a board certified obesity and weight management practice Of note, some information is being carried forward from prior records for informational purposes only and is being cited so that efficiency, safety and quality of the patient's care is not compromised This note was prepared using voice recognition software and direct typing Please excuse inadvertent dehairer or typing errors, or uncorrected word substitutions Although every attempt has been made by the provider to proofread this document, occasional misspellings and typographical errors may still be present Due to the previous pandemic, and the use of personal protective equipment (PPE) This may decrease voice recognition accuracy Inadvertent dehairer errors may occur 06/26/2025 Past myocardial infarction (ICD-10 - I25.2) #Weight Management 06/26/2025 Patient unfortunately changed jobs and now longer has insurance Will not be able to see us in the interim Discussed she could come back and see us at any time When she is established and has insurance again Total time spent today was 30 minutes of which greater than 50% was spent on coordinating and counseling Patient has been found to be normal with a BMI of (21.9). We are a board certified obesity and weight management practice Of note, some information is being carried forward from prior records for informational purposes only and is being cited so that efficiency, safety and quality of the patient's care is not compromised This note was prepared using voice recognition software and direct typing Please excuse inadvertent dehairer or typing errors, or uncorrected word substitutions Although every attempt has been made by the provider to proofread this document, occasional misspellings and typographical errors may still be present Due to the previous pandemic, and the use of personal protective equipment (PPE) This may decrease voice recognition accuracy Inadvertent dehairer errors may occur 06/26/2025 Dietary counseling and surveillance (ICD-10 - Z71.3) #Weight Management 06/26/2025 Patient unfortunately changed jobs and now longer has insurance Will not be able to see us in the interim Discussed she could come back and see us at any time When she is established and has insurance again Total time spent today was 30 minutes of which greater than 50% was spent on coordinating and counseling Patient has been found to be normal with a BMI of (21.9). We are a board certified obesity and weight management practice Of note, some information is being carried forward from prior records for informational purposes only and is being cited so that efficiency, safety and quality of the patient's care is not compromised This note was prepared using voice recognition software and direct typing Please excuse inadvertent dehairer or typing errors, or uncorrected word substitutions Although every attempt has been made by the provider to proofread this document, occasional misspellings and typographical errors may still be present Due to the previous pandemic, and the use of personal protective equipment (PPE) This may decrease voice recognition accuracy Inadvertent dehairer errors may occur 05/15/2025 Dietary counseling and surveillance (ICD-10 - Z71.3) #Weight Management 05/15/2025 Fat mass is down and muscle mass is up 2.5 pounds which is assuring follow labs, CPE with PCP upcoming Zepbound to 2.5mg every 2 weeks to maintain weight , 50% reduction Discussed increasing protein intake and add creatine for muscle maintenance Her BMI has normalized track down echo report from Total time spent today was 30 minutes of which greater than 50% was spent on coordinating and counseling Patient has been found to be normal with a BMI of (21.9). We are a board certified obesity and weight management practice Of note, some information is being carried forward from prior records for informational purposes only and is being cited so that efficiency, safety and quality of the patient's care is not compromised This note was prepared using voice recognition software and direct typing Please excuse inadvertent dehairer or typing errors, or uncorrected word substitutions Although every attempt has been made by the provider to proofread this document, occasional misspellings and typographical errors may still be present Due to the previous pandemic, and the use of personal protective equipment (PPE) This may decrease voice recognition accuracy Inadvertent dehairer errors may occur 03/20/2025 Dietary counseling and [...] software and direct typing Please excuse inadvertent dehairer or typing errors, or uncorrected word substitutions Although every attempt has been made by the provider to proofread this document, occasional misspellings and typographical errors may still be present Due to the previous pandemic, and the use of personal protective equipment (PPE) This may decrease voice recognition accuracy Inadvertent dehairer errors may occur 02/06/2025 Dietary counseling and [...] software and direct typing Please excuse inadvertent dehairer or typing errors, or uncorrected word substitutions Although every attempt has been made by the provider to proofread this document, occasional misspellings and typographical errors may still be present Due to the previous pandemic, and the use of personal protective equipment (PPE) This may decrease voice recognition accuracy Inadvertent dehairer errors may occur 10/24/2024 GERD without esophagitis [...] Dictation was accomplished with the use of [employer] voice recognition software, which is prone to [...] minimum of 6 months The most recent [place] Association of clinical endocrinologists and Canadian College of endocrinology guidelines recommend patients who [...] software and direct typing Please excuse inadvertent dehairer or typing errors, or uncorrected word substitutions Although every attempt has been made by the provider to proofread this document, occasional misspellings and typographical errors may still be present Due to the previous pandemic, and the use of personal protective equipment (PPE) This may decrease voice recognition accuracy Inadvertent dehairer errors may occur 09/26/2024 Past myocardial infarction [...] minimum of 6 months The most recent [place] Association of clinical endocrinologists and [employer] College of endocrinology guidelines recommend patients who [...] software and direct typing Please excuse inadvertent dehairer or typing errors, or uncorrected word substitutions Although every attempt has been made by the provider to proofread this document, occasional misspellings and typographical errors may still be present Due to the previous pandemic, and the use of personal protective equipment (PPE) This may decrease voice recognition accuracy Inadvertent dehairer errors may occur 09/26/2024 Migraine without status [...] minimum of 6 months The most recent [place] Association of clinical endocrinologists and [place] College of endocrinology guidelines recommend patients who [...] software and direct typing Please excuse inadvertent dehairer or typing errors, or uncorrected word substitutions Although every attempt has been made by the provider to proofread this document, occasional misspellings and typographical errors may still be present Due to the previous pandemic, and the use of personal protective equipment (PPE) This may decrease voice recognition accuracy Inadvertent dehairer errors may occur 10/24/2024 Episodic migraine (ICD-10 [...] Dictation was accomplished with the use of [employer] voice recognition software, which is prone to medical misidentifications and grammatical errors. This are unintentional and the practitioner does try to identify and correct these, but some could still be present. Please do not hesitate to contact practitioner for clarification. 11/21/2024 BMI 23.0-23.9, adult (ICD-10 - Z68.23) [...] minimum of 6 months The most recent [place] Association of clinical endocrinologists and [place] College of endocrinology guidelines recommend patients who [...] software and direct typing Please excuse inadvertent dehairer or typing errors, or uncorrected word substitutions Although every attempt has been made by the provider to proofread this document, occasional misspellings and typographical errors may still be present Due to the previous pandemic, and the use of personal protective equipment (PPE) This may decrease voice recognition accuracy Inadvertent dehairer errors may occur 02/06/2025 BMI 21.0-21.9, adult [...] software and direct typing Please excuse inadvertent dehairer or typing errors, or uncorrected word substitutions Although every attempt has been made by the provider to proofread this document, occasional misspellings and typographical errors may still be present Due to the previous pandemic, and the use of personal protective equipment (PPE) This may decrease voice recognition accuracy Inadvertent dehairer errors may occur 05/15/2025 BMI 21.0-21.9, adult (ICD-10 - Z68.21) #Weight Management 05/15/2025 Fat mass is down and muscle mass is up 2.5 pounds which is assuring follow labs, CPE with PCP upcoming Zepbound to 2.5mg every 2 weeks to maintain weight , 50% reduction Discussed increasing protein intake and add creatine for muscle maintenance Her BMI has normalized track down echo report from Total time spent today was 30 minutes of which greater than 50% was spent on coordinating and counseling Patient has been found to be normal with a BMI of (21.9). We are a board certified obesity and weight management practice Of note, some information is being carried forward from prior records for informational purposes only and is being cited so that efficiency, safety and quality of the patient's care is not compromised This note was prepared using voice recognition software and direct typing Please excuse inadvertent dehairer or typing errors, or uncorrected word substitutions Although every attempt has been made by the provider to proofread this document, occasional misspellings and typographical errors may still be present Due to the previous pandemic, and the use of personal protective equipment (PPE) This may decrease voice recognition accuracy Inadvertent dehairer errors may occur 03/20/2025 BMI 21.0-21.9, adult [...] software and direct typing Please excuse inadvertent dehairer or typing errors, or uncorrected word substitutions Although every attempt has been made by the provider to proofread this document, occasional misspellings and typographical errors may still be present Due to the previous pandemic, and the use of personal protective equipment (PPE) This may decrease voice recognition accuracy Inadvertent dehairer errors may occur 06/26/2025 BMI 21.0-21.9, adult (ICD-10 - Z68.21) #Weight Management 06/26/2025 Patient unfortunately changed jobs and now longer has insurance Will not be able to see us in the interim Discussed she could come back and see us at any time When she is established and has insurance again Total time spent today was 30 minutes of which greater than 50% was spent on coordinating and counseling Patient has been found to be normal with a BMI of (21.9). We are a board certified obesity and weight management practice Of note, some information is being carried forward from prior records for informational purposes only and is being cited so that efficiency, safety and quality of the patient's care is not compromised This note was prepared using voice recognition software and direct typing Please excuse inadvertent dehairer or typing errors, or uncorrected word substitutions Although every attempt has been made by the provider to proofread this document, occasional misspellings and typographical errors may still be present Due to the previous pandemic, and the use of personal protective equipment (PPE) This may decrease voice recognition accuracy Inadvertent dehairer errors may occur 06/26/2025 Encounter for examination of blood pressure without abnormal findings (ICD-10 - Z01.30) #Weight Management 06/26/2025 Patient unfortunately changed jobs and now longer has insurance Will not be able to see us in the interim Discussed she could come back and see us at any time When she is established and has insurance again Total time spent today was 30 minutes of which greater than 50% was spent on coordinating and counseling Patient has been found to be normal with a BMI of (21.9). We are a board certified obesity and weight management practice Of note, some information is being carried forward from prior records for informational purposes only and is being cited so that efficiency, safety and quality of the patient's care is not compromised This note was prepared using voice recognition software and direct typing Please excuse inadvertent dehairer or typing errors, or uncorrected word substitutions Although every attempt has been made by the provider to proofread this document, occasional misspellings and typographical errors may still be present Due to the previous pandemic, and the use of personal protective equipment (PPE) This may decrease voice recognition accuracy Inadvertent dehairer errors may occur 05/15/2025 Encounter for examination of blood pressure without abnormal findings (ICD-10 - Z01.30) #Weight Management 05/15/2025 Fat mass is down and muscle mass is up 2.5 pounds which is assuring follow labs, CPE with PCP upcoming Zepbound to 2.5mg every 2 weeks to maintain weight , 50% reduction Discussed increasing protein intake and add creatine for muscle maintenance Her BMI has normalized track down echo report from Total time spent today was 30 minutes of which greater than 50% was spent on coordinating and counseling Patient has been found to be normal with a BMI of (21.9). We are a board certified obesity and weight management practice Of note, some information is being carried forward from prior records for informational purposes only and is being cited so that efficiency, safety and quality of the patient's care is not compromised This note was prepared using voice recognition software and direct typing Please excuse inadvertent dehairer or typing errors, or uncorrected word substitutions Although every attempt has been made by the provider to proofread this document, occasional misspellings and typographical errors may still be present Due to the previous pandemic, and the use of personal protective equipment (PPE) This may decrease voice recognition accuracy Inadvertent dehairer errors may occur 10/24/2024 Depression with anxiety [...] Dictation was accomplished with the use of [employer] voice recognition software, which is prone to medical misidentifications and grammatical errors. This are unintentional and the practitioner does try to identify and correct these, but some could still be present. Please do not hesitate to contact practitioner for clarification. 01/02/2025 #Weight Management 01/02/2025 Her BMI has normalized [...] software and direct typing Please excuse inadvertent dehairer or typing errors, or uncorrected word substitutions Although every attempt has been made by the provider to proofread this document, occasional misspellings and typographical errors may still be present Due to the previous pandemic, and the use of personal protective equipment (PPE) This may decrease voice recognition accuracy Inadvertent dehairer errors may occur Plan Of Treatment No Information Insurance Providers Payer Name Payer Address Payer Phone Subscriber Number Group Number Insured Name Patient Relationship to Insured Coverage Start Date Coverage End Date [facility] [address] [place] [id number] [phone] [id number] Kelsey Bhagat Self - patient is the insured Medical (General) History Medical History History ICD Code asthma heart attack weight gain/loss migraines Surgical History Surgery Date(Month/Year) section 01/2007
== END 2025-08-04 11:46 | disposition home or self-care (01) ==
LOC: HO.HUSH 11:05
PROVIDERS: PCP Internal Medicine; Visit Provider Nurse Practitioner Family
DX: N20.0 Calculus of kidney (principal); Z13.9 Encounter for screening, unspecified
CPT/HCPCS: 99204

== ENCOUNTER → 2025-08-04 11:05 | Outpatient (BNVA) | payer OTHER, SELFPAY | PROVIDERS: PCP Internal Medicine; Visit Provider Nurse Practitioner Family | DX: N20.0 Calculus of kidney (principal) | CPT/HCPCS: 51798; 81003; 99202 ==

== ENCOUNTER 2025-11-02 11:03 | Outpatient (REF) | payer OTHER, SELFPAY ==
--- OUTSIDE RECORDS SUMMARY | 2015-01-26 23:00 | XMS_ITS | Encounter Summary ---
Author Organization [facility] Address [address] [facility] [address] [place] [address] Phone Care Team Providers Care Care Associate Name Role Phone Unavailable Primary Care Provider Unavailabl e Reason for Visit * MRI/CAT Scan - Closed Specialty Diagnoses / Procedures Referred By Macy tabor Referred To Contact Radiology Procedures MRI Brain Outside (No Interpretation) Ascencion Borrero MD [address] [place] [address] Phone: tel: fax: mailto:[email or web address] Referral ID Status Reason Start Date Expiration Date Visits Re quested Visits Authorized [id number] Closed 07/25/2016 07/25/2017 1 1 Encounter Details Date Type Department Care Team ([facility] st Contact Info) Description 01/27/2015 Hospital Encounter [facility] General Imaging [address] [place] [address] Ascencion Borrero MD [address] [place] [address] [place] [phone] [email or web address] Social History Tobacco Use Types Packs/Day Years Used Date Smoking Tobacco: Never Smokeless Tobacco: Never Education Answer Date Recorded Are you interested in more education? Not on bina e 03/02/2023 Are you concerned about learning? Not on file 03/02/2023 No 03/02/2023 No 03/02/2023 Digital Access Answer Date Recorded No 04/02/2023 No 04/02/2023 Reliable internet access at home? Not on file 04/02/2023 Device with a working camera? Not on file Comments Unknown Sex and Gender Information Value Date Recorded Sex Assigned at Female 04/07/2020 3:57 PM EDT Legal Sex Female 10:39 AM EDT Gender Identity Female 04/07/2020 3:57 PM EDT Sexual Orientation Straight 04/07/2020 3: 57 PM EDT documented as of this encounter Plan of Treatment Not on file documented as of this encounter Procedures Procedure Name Priority Date/Time Associated Diagnosis Comments MRI BRAIN OUTSIDE (NO INTERPRETATION) Routine 01/27/2015 12:00 AM EDT documented in this encounter Results * MRI Brain Outside (No Interpretation) (01/27/2015 12:00 AM EDT) Narrative [facility] IMG INTERFACES - 07/25/2016 11:30 AM EDT This study is for PACS storage only and not for interpretation. Procedure Note SYSTEMGENERATED, DOCUMENTATION - 07/25/2016 This study is for PACS storage only and not for interpretation. us Ascencion Borrero MD IMG OUTSIDE IMAGING W/OUT I NTERPRETATION Final Result [facility] IMG INTERFACES documented in this encounter Visit Diagnoses Not on filedocumented in this encounter Additional Source Comments The information contained in this document represents components of the legal health record. It is not the complete legal health record.[facility]
--- OUTSIDE RECORDS SUMMARY | 2015-03-01 23:00 | XMS_ITS | Encounter Summary ---
Author Organization [facility] Address [address] [facility] [address] [place] [address] Phone Care Team Providers Care Mannequin Sander And Finisher Name Role Phone Unavailable Primary Care Provider Unavailabl e Reason for Visit * MRI/CAT Scan - Closed Specialty Diagnoses / Procedures Referred By Macy tabor Referred To Contact Radiology Procedures MRI Brain Outside (No Interpretation) Ascencion Borrero MD [address] [place] [address] Phone: tel: fax: mailto:[email or web address] Referral ID Status Reason Start Date Expiration Date Visits Re quested Visits Authorized [id number] Closed 07/25/2016 07/25/2017 1 1 Encounter Details Date Type Department Care Team ([facility] st Contact Info) Description 03/02/2015 Hospital Encounter [facility] General Imaging [address] [place] [address] Ascencion Borrero MD [address] [place] [address] [place] [phone] [email or web address] Social History Tobacco Use Types Packs/Day Years [...] Comments MRI BRAIN OUTSIDE (NO INTERPRETATION) Routine 03/02/2015 12:00 AM EDT documented in this encounter Results * MRI Brain Outside (No Interpretation) (03/02/2015 12:00 AM EDT) Narrative [facility] IMG INTERFACES - 07/25/2016 11:30 AM EDT This study is for PACS storage only and not for interpretation. Procedure Note SYSTEMGENERATED, DOCUMENTATION - 07/25/2016 This study is for PACS storage only and not for interpretation. us Ascencion Borrero MD IMG OUTSIDE IMAGING W/OUT I NTERPRETATION Final Result [facility] IMG INTERFACES documented in this encounter Visit Diagnoses Not on filedocumented in this encounter Additional Source Comments The information contained in this document represents components of the legal health record. It is not the complete legal health record.[facility]
--- OUTSIDE RECORDS SUMMARY | 2025-03-20 05:00 | XMS_ITS ---
Author Organization [facility] [address] Address [address] [place] [address] Care Team Providers Care Pneumatic Tube Fitter Name Role Phone IMELDA RENNER Unavailable [phone] Medications Medication SIG (Take, Route, Frequency, Duration) Notes Start Date End Date Status Venlafaxine HCl 75 MG Tablet 1 tablet with food Orally Once a day Active Topiramate 100 MG Tablet 1 tablet Orally Once a day Active Zepbound 2.5 MG/0.5ML Solution Auto-injector 2.5 mg weekly Subcutaneous Weekly; Duration: 30 days 02/06/2025 Active Aspirin 81 81 MG Tablet Delayed Release 1 tablet Orally Once a day Active Famotidine 40 MG Tablet as directed Orally Active Wegovy 0.25 MG/0.5ML Solution Auto-injector 0.25mg Subcutaneous weekly; Duration: 30 days Active Encounters Encounter Location Date Provider Diagnosis [facility] [address] [place] [phone] 03/20/2025 IMELDA RENNER Other hyperlipidemia E78.49 ; Migraine without status migrainosus, not intractable, unspecified migraine type G43.909 ; Past myocardial infarction I25.2 ; Dietary counseling and surveillance Z71.3 and BMI 21.0-21.9, adult Z68.21 Assessments Encounter Date Diagnosis (ICD Code) Assessment Notes Treatment Notes Treatment Clinical Notes Section Notes 03/20/2025 Other hyperlipidemia (ICD-10 - E78.49) #Weight Management 03/20/2025 Decrease Zepbound to 2.5mg every 2 weeks [...] software and direct typing Please excuse inadvertent senior wealth advisor or typing errors, or uncorrected word substitutions Although every attempt has been made by the provider to proofread this document, occasional misspellings and typographical errors may still be present Due to the previous pandemic, and the use of personal protective equipment (PPE) This may decrease voice recognition accuracy Inadvertent senior wealth advisor errors may occur 03/20/2025 Migraine without status migrainosus, not intractable, unspecified migraine type (ICD-10 - G43.909) #Weight Management 03/20/2025 Decrease Zepbound to 2.5mg every 2 weeks [...] software and direct typing Please excuse inadvertent senior wealth advisor or typing errors, or uncorrected word substitutions Although every attempt has been made by the provider to proofread this document, occasional misspellings and typographical errors may still be present Due to the previous pandemic, and the use of personal protective equipment (PPE) This may decrease voice recognition accuracy Inadvertent senior wealth advisor errors may occur 03/20/2025 Past myocardial infarction (ICD-10 - I25.2) #Weight Management 03/20/2025 Decrease Zepbound to 2.5mg every 2 weeks [...] software and direct typing Please excuse inadvertent senior wealth advisor or typing errors, or uncorrected word substitutions Although every attempt has been made by the provider to proofread this document, occasional misspellings and typographical errors may still be present Due to the previous pandemic, and the use of personal protective equipment (PPE) This may decrease voice recognition accuracy Inadvertent senior wealth advisor errors may occur 03/20/2025 Dietary counseling and surveillance (ICD-10 - Z71.3) #Weight Management 03/20/2025 Decrease Zepbound to 2.5mg every 2 weeks [...] software and direct typing Please excuse inadvertent senior wealth advisor or typing errors, or uncorrected word substitutions Although every attempt has been made by the provider to proofread this document, occasional misspellings and typographical errors may still be present Due to the previous pandemic, and the use of personal protective equipment (PPE) This may decrease voice recognition accuracy Inadvertent senior wealth advisor errors may occur 03/20/2025 BMI 21.0-21.9, adult (ICD-10 - Z68.21) #Weight Management 03/20/2025 Decrease Zepbound to 2.5mg every 2 weeks [...] software and direct typing Please excuse inadvertent senior wealth advisor or typing errors, or uncorrected word substitutions Although every attempt has been made by the provider to proofread this document, occasional misspellings and typographical errors may still be present Due to the previous pandemic, and the use of personal protective equipment (PPE) This may decrease voice recognition accuracy Inadvertent senior wealth advisor errors may occur Plan Of Treatment No Information History and Physical Notes * HPI (History of Present Illness) Category Sub-Category Detail Notes Category Not es Constitutional Patient is here today for a weight management f/u visit Patient seen and examined. Full past medical history, social history, family history, allergies and current medications were reviewed and updated. Body composition analysis reviewed today #Weight Management 03/20/2025 Current weight 130lbs (-5lbs), fat mass -6lbs, muscle mass -1lb Currently Zepbound 5mg every 2 weeks Tolerating medication well Is doing resistance training with bands Patient has done quite well since May 2024, down over 50 pounds 24-hour dietary recall Breakfast: Lunch: Dinner: Snacking: We discussed maintenance dosing moving forward I [...] or used tobacco. ETOH use: no ETOH 03/20/2025, Weight , BMI 02/06/2025, Weight 130lbs, BMI 21.9 (-5lbs) 11/21/2024, Weight 135lbs , BMI 23 (-5lbs) 10/24/2024, Weight 140lbs , BMI 24 09/26/2024, Weight 149lbs , BMI 25 (-21lbs) 07/25/2024, Weight 170lbs , BMI 29 (-14lbs) 05/23/2024: Weight 184 lbs, BMI 30: Patient referred to us from social media and [employer] research. 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 Highest weight: 184 lbs Lowest weight: 150 lbs Goal weight: 140 lbs MARY ANN screening/STOP-BANG/[place]. Denies snoring. No concern for MARY ANN PCP: [facility] . Sees regularly. 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 Most recent was January 2024 through [facility]. Examination Category Sub-Category Detail Notes Category Not es General Examination GENERAL APPEARANCE: in no ac jackson distress, well developed, well nourished HEAD: normocephalic, [...] s, or edema ORAL CAVITY: mucosa moist Progress Notes * Ana BHAGATraDOB:[birth year] (45 yo F)Acc No.[id number]:03/20/2025 Patient: Kelsey Obrien Provider: Shawn RENNER NP :1980 A ge:44 Y S ex:Female Date:03/20/2025 Address:[address] [place] [address], [facility] [place] Subjective: * Chief Complaints: * HPI: C onstitutional: Patient is here today for a weight management f/u visit Patient seen and examined. Full past medical history, social history, family history, allergies and current medications were reviewed and updated. Body composition analysis reviewed today #Weight Management 03/20/2025 Current weight 130lbs (-5lbs), fat mass -6lbs, muscle mass -1lb Currently Zepbound 5mg every 2 weeks Tolerating medication well Is doing resistance training with bands Patient has done quite well since May 2024, down over 50 pounds 24-hour dietary recall Breakfast: Lunch: Dinner: Snacking: We discussed maintenance dosing moving forward I do not want her losing any more weight her BMI is at 23 and her weight is at 130 pounds Will decrease dose by 50% Discussed low normal muscle mass utilizing plant based proteins, shakes, etc Discussed adding creatine disc incorporating strength/resistance training, muscle building activities PMH: [place] (2016) - reports she had a blood [...] or used tobacco. ETOH use: no ETOH 03/20/2025, Weight , BMI 02/06/2025, Weight 130lbs, BMI 21.9 (-5lbs) 11/21/2024, Weight 135lbs , BMI 23 (-5lbs) 10/24/2024, Weight 140lbs , BMI 24 09/26/2024, Weight 149lbs , BMI 25 (-21lbs) 07/25/2024, Weight 170lbs , BMI 29 (-14lbs) 05/23/2024: Weight 184 lbs, BMI 30: Patient referred to us from social media and [employer] research. 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 Highest weight: 184 lbs Lowest weight: 150 lbs Goal weight: 140 lbs MARY ANN screening/STOP-BANG/[place]. Denies snoring. No concern for MARY ANN PCP: [facility] . Sees regularly. 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 Most recent was January 2024 through [facility]. * ROS: A ll Other Systems: Review of Systems (ROS) A ll others negative except those mentioned in HPI. * Medications: T akingWegovy 0.25 MG/0.5ML Solution Auto-injector 0.25mg Subcutaneous weekly Topiramate 100 MG Tablet 1 tablet Orally Once a day Venlafaxine HCl 75 MG Tablet 1 tablet with food Orally Once a day Famotidine 40 MG Tablet as directed Orally Aspirin 81 81 MG Tablet Delayed Release 1 tablet Orally Once a day Zepbound 2.5 MG/0.5ML Solution Auto-injector 2.5 mg weekly Subcutaneous Weekly Taking Wegovy 0.25 MG/0.5ML Solution Auto-injector 0.25mg Subcutaneous weekly Taking Topiramate 100 MG Tablet 1 tablet Orally Once a day Taking Venlafaxine HCl 75 MG Tablet 1 tablet with food Orally Once a day Taking Famotidine 40 MG Tablet as directed Orally Taking Aspirin 81 81 MG Tablet Delayed Release 1 tablet Orally Once a day Taking Zepbound 2.5 MG/0.5ML Solution Auto-injector 2.5 mg weekly Subcutaneous Weekly Objective: * Examination: G eneral Examination: GENERAL APPEARANCE: i n no acute distress, well developed, well nourished. HEAD: n ormocephalic, atraumatic. EYES: p upils equal, round, reactive to light and accommodation. EARS: n ormal. ORAL CAVITY: m ucosa moist. THROAT: c lear. NECK/THYROID: n carolann supple, full range of motion, no cervical lymphadenopathy. SKIN: n o suspicious lesions, warm and dry. HEART: n o murmurs, regular rate and rhythm, S1, S2 normal.? LUNGS: c lear to auscultation bilaterally. ABDOMEN: n ormal, bowel sounds present, soft, nontender, nondistended. EXTREMITIES: n o clubbing, cyanosis, or edema. NEUROLOGIC: n onfocal, motor strength normal upper and lower extremities, sensory exam intact. Assessment: * Assessment: 1. O ther hyperlipidemia - E78.49 2 . M igraine without status migrainosus, not intractable, unspecified migraine type - G43.909 3 . P ast myocardial infarction - I25.2 4 . D ietary counseling and surveillance - Z71.3 5 . B [place] 21.0-21.9, adult - Z68.21 #Weight Management 03/20/2025 Decrease Zepbound to 2.5mg every 2 weeks [...] software and direct typing Please excuse inadvertent senior wealth advisor or typing errors, or uncorrected word substitutions Although every attempt has been made by the provider to proofread this document, occasional misspellings and typographical errors may still be present Due to the previous pandemic, and the use of personal protective equipment (PPE) This may decrease voice recognition accuracy Inadvertent senior wealth advisor errors may occur Plan: * Procedure Codes: 9 9199 NO SHOW OFFICE VISIT Billing Information: * Procedure Codes: 11258 NO SHOW OFFICE VISIT. * Electronic signature of ERIK RENNER on 11/02/2025 at 12:54 PM EST Sign off status: Pending * Provider: Shawn RENNER NP Date: 0 03/20/2025 Generated for Carmita santos/Yoli/Tiffany on: 1 12:54 PM EST
--- OUTSIDE RECORDS SUMMARY | 2025-10-30 23:59 | XMS_ITS | Continuity of Care Document ---
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 Name Role Phone Xena SCOTT, Emmanuel Brewer Primary Care Physician [id number] Date[facility]): [facility]23[facility]25 - 10/30/25 [facility] Adult [address] [place] [address]- Encounter Diagnosis BARBRA (generalized anxiety disorder)(Discharge Diagnosis) - 10/23/25 Attending Physician: Polly Cabrera NP Encounter Type: Office Visit Allergies, Adverse Reactions, Alerts Substance Criticality Severity Reaction Reaction Severity Status morphine itchy, hives Active Other Food Allergy CRAB-VOMI TING/DIARRH EA Active Functional Status Functional Status Assessment Assessment Assessment Component Result Effecti ve Date Disability status [CUBS] I'm Thriving - no identified disability 10/23/25 Because of a physica l, mental, or emotional condition, do you have serious difficulty concentrating, remembering, or making decisions No 10/23/25 Difficulty communica ting in usual language No 10/23/25 Do you have serious difficulty walking or climbing stairs No 10/23/25 Difficulty Reading O r Writing No 10/23/25 Do you have difficul ty dressing or bathing No 10/23/25 Do you need any juan daniel tional assistance or accommodations during your visit No 10/23/25 Are you deaf, or do you have serious difficulty hearing No 10/23/25 Because of a physica l, mental, or emotional condition, do you have difficulty doing errands alone such as visiting a physician's office or shopping No 10/23/25 Are you blind, or do you have serious difficulty seeing, even when wearing glasses Yes 10/23/25 Immunizations Given and Recorded Vaccine Date Status Refusal Reason hepatitis B adult vaccine 08/08/24 Recorded hepatitis B adult vaccine 07/04/24 Recorded Influenza Virus Vaccine (oldterm) 1 07/04/24 Recor ded Influenza Virus Vaccine (oldterm) 07/26/20 Recorde d Influenza Virus Vaccine (oldterm) 07/31/17 Recorde d Influenza Virus Vaccine (oldterm) 09/05/16 Recorde d tetanus/diphtheria/pertussis, acel(Tdap) 01/29/24 Recorded tetanus/diphtheria/pertussis, acel(Tdap) 05/04/10 Given influenza virus vaccine, inactivated 07/21/23 Ervin rded influenza virus vaccine, inactivated 07/28/21 Ervin rded influenza virus vaccine, inactivated 08/07/19 Give n SARS-CoV-2 (COVID-19) mRNA-1273 vaccine 09/28/21 R ecorded SARS-CoV-2 (COVID-19) mRNA-1273 vaccine 2 01/08/21 Recorded SARS-CoV-2 (COVID-19) mRNA-1273 vaccine 01/08/21 R ecorded SARS-CoV-2 (COVID-19) mRNA-1273 vaccine 3 12/11/20 Recorded SARS-CoV-2 (COVID-19) mRNA BNT-162b2 vac 4 12/11/20 Recorded pneumococcal 23-valent vaccine 5 07/08/14 Given tetanus-diphtheria toxoids (Td) 07/02/13 Recorded 1Result Comment: Flublok PF inj [facility] 2Result Comment: Moderna COVID vaccine 3Result Comment: Moderna COVID vaccine 4Result Comment: moderna 5Early/Late Reason: Other : pt refused until now Medications aspirin 81 mg oral delayed release tablet 81 mg, By Mouth, Daily, # 30 tablet, Refills 11, Tot. Refills 11, Maintenance, 04/26/23 10:32:00 AM EDT, Route to Pharmacy Electronically, [facility], 170, cm, 04/26/23 10:06:00 EDT, Height, 76.2, kg, 12/20/21 7:15:00 EST, Dry Weight Start Date: 04/26/23 Stop Date: 04/20/24 Status: Ordered Medication Dispense Status: Completed Quantity: 30.0 Unit: tablet Total Allowed Fills: 12 Fills Dispensed: 0 black cohosh 540 mg oral capsule 1 capsule = 540 mg, By Mouth, 3 times a day, 0 Refills, Maintenance, 05/26/25 11:35:00 AM EDT, Capsule, Partial fill upon patient request if the prescription is for a schedule II opioid drug. Start Date: 05/26/25 Status: Ordered Medication Dispense Status: Completed Total Allowed Fills: 1 Fills Dispensed: 0 Crestor 40 mg oral tablet 1 tablet = 40 mg, By Mouth, Daily, # 90 tablet, 1 Refills, Maintenance, 06/12/25 1:59:00 PM EDT, Tablet, [facility], Partial fill upon patient request if the prescription is for a schedule II opioid drug., 165, cm, 06/12/25 13:37:00 EDT, Height, 59.6, kg, 06/01/25 10:56:00 EDT, Dry Weight Start Date: 06/12/25 Status: Ordered Medication Dispense Status: Completed Quantity: 90.0 Unit: tablet Total Allowed Fills: 2 Fills Dispensed: 0 diazepam 5 mg oral tablet 5 mg, 1, tablet, By Mouth, Every 8 hours, PRN, use for anal spasm., # 21 tablet, Refills 0, Tot. Refills 0, Maintenance, Spasm, 06/09/25 3:00:00 PM EDT, Route to Pharmacy Electronically, [facility], Partial fill upon patient request if the prescription is for a schedule II opioid drug., 165, cm, 06/09/25 14:47:00 EDT, Height, 59.6, kg, 06/01/25 10:56:00 EDT, Dry Weight Start Date: 06/09/25 Status: Ordered Medication Dispense Status: Completed Quantity: 21.0 Unit: tablet Total Allowed Fills: 1 Fills Dispensed: 0 esomeprazole 20 mg oral enteric coated capsule 1 capsule = 20 mg, By Mouth, Daily, # 90 capsule, 0 Refills, Maintenance, 04/24/25 3:51:00 PM EDT, EC Capsule, [facility], Partial fill upon patient request if the prescription is for a schedule II opioid drug., 165, cm, 04/24/25 15:23:00 EDT, Height, 59, kg, 03/04/25 13:04:00 EDT, Dry Weight Start Date: 04/24/25 Status: Ordered Medication Dispense Status: Completed Quantity: 90.0 Unit: capsule Total Allowed Fills: 1 Fills Dispensed: 0 Estroven Menopause Supplement oral tablet 1 tablet, By Mouth, Daily, 0 Refills, Maintenance, 05/26/25 11:36:00 AM EDT, Partial fill upon patient request if the prescription is for a schedule II opioid drug. Start Date: 05/26/25 Status: Ordered Medication Dispense Status: Completed Total Allowed Fills: 1 Fills Dispensed: 0 Linzess 290 mcg oral capsule 1 capsule, By Mouth, Daily, # 90 capsule, 0 Refills, Maintenance, 10/21/25 11:48:00 AM EST, [facility], 165, cm, 09/23/25 12:37:00 EST, Height, 59.6, kg, 06/01/25 10:56:00 EDT, Dry Weight Start Date: 10/21/25 Stop Date: 01/19/26 Status: Ordered Medication Dispense Status: Completed Quantity: 90.0 Unit: capsule Total Allowed Fills: 1 Fills Dispensed: 0 Linzess 290 mcg oral capsule 1 capsule, By Mouth, Daily, for 90 days, # 90 capsule, 0 Refills, Hard Stop 01/19/26 12:48:00 PM EDT, 07/27/25 10:36:00 AM EDT, [facility], 165, cm, 06/23/25 8:55:00 EDT, Height, 59.6, kg, 06/01/25 10:56:00 EDT, Dry Weight Start Date: 07/27/25 Stop Date: 01/19/26 Status: Ordered Medication Dispense Status: Completed Quantity: 90.0 Unit: capsule Total Allowed Fills: 1 Fills Dispensed: 0 topiramate 100 mg oral tablet = 100 mg, By Mouth, 2 times a day, # 180 tablet, 1 Refills, Maintenance, 06/12/25 2:02:00 PM EDT, Tablet, [facility], Partial fill upon patient request if the prescription is for a schedule II opioid drug., 165, cm, 06/12/25 13:37:00 EDT, Height, 59.6, kg, 06/01/25 10:56:00 EDT, Dry Weight Start Date: 06/12/25 Status: Ordered Medication Dispense Status: Completed Quantity: 180.0 Unit: tablet Total Allowed Fills: 2 Fills Dispensed: 0 venlafaxine 150 mg oral capsule, extended release 150 mg, 1, capsule, By Mouth, Daily, # 90 capsule, Refills 1, Tot. Refills 1, Maintenance, 10/23/2511:07:00 AM EST, Route to Pharmacy Electronically, [facility], Partial fill upon patientrequest if the prescription is for a schedule II opioid drug., 165, cm, 10/23/25 10:26:00 EST, Height, 59.6, kg, 06/01/25 10:56:00 EDT, Dry Weight Start Date: 10/23/25 Status: Ordered Medication Dispense Status: Completed Quantity: 90.0 Unit: capsule Total Allowed Fills: 2 Fills Dispensed: 0 Mental Status Mental Status Assessment Assessment Assessment Component Result Effecti ve Date Patient Health Questionnaire 2 item (PHQ-2) total score [Reported] 0 10/23/25 Problem List Condition Confirmation Course Effective Dates Status Health Status Informant Anal fissure Confirmed Active 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 Chronic headaches Confirmed Active Constipation Confirmed Active Excessive hair growth Confirmed Active BARBRA (generalized anxiety disorder) Confirmed Active History of asthma Confirmed Active History of obesity Confirmed Active Hemorrhoids Confirmed Active Hip pain, right Confirmed Active History of colonoscopy 1, 2 Confirmed Active History of Helicobacter pylori infection Confirmed Active History of AK (myocardial infarction) Confirmed Active Hypercholesterolemia Confirmed Active Joint pain Confirmed Active Nephrolithiasis 3 Confirmed Active Perimenopausal symptom Confirmed Active Migraine Confirmed Active Elbow pain, right Confirmed Active Rectal bleeding Confirmed Active 1Colonoscopy 2024 negative, repeat 3 years or ; repeat 3-6 months 34 mm left lower pole renal calculus, new or increased in size from CT 03/18/2015. Diagnosis Diagnosis Type Effective Dates Health Status Cl inical Service Informant BARBRA (generalized anxiety disorder) Discharge Diagnosis 10/23/25 Vital Signs Most recent to oldest [Reference Range]: 1 Height 165 cm (10/23/25 10:26 AM) Social History Social History Type Response Sexual Gender identity: Rony ntifies as female. Preferred pronoun: She/her. Smoking Status Never (less than 100 in lifetime) entered on: 07/03/19 Sex Sex Representation Female (finding) Patient Care team information Care Team Personnel Name: Anna Saldana Position: [facility] Onco RN Member Role: Primary Care Nurse Name: Lalita Oliver RN Position: [facility] Hospital Integrated Specialist Member Role: Primary Care Nurse Name: Emmanuel Mccallum MD Position: [facility] Physician - Primary Care Member Role: PCP Address: [address] [place] [address]- [place] Tele[employer]: Name: Arlin Rice RN Position: [facility] RN Member Role: Primary Care Nurse Name: Mallory Arroyo NP Position: [facility] Associate Professional Member Role: Primary Care Nurse Address: [address] [place] [address]- [place] Tele[employer]: Name: Anna Vaughan RN Position: [facility] Onco RN Member Role: Primary Care Nurse Care Team Related Persons Name: VALENCIA THOMAS Name: VALENCIA JONES Name: LUIS ALBERTO ARGUETA Name: ADAM DE LUNA Insurance Providers Guarantor name: ERIBERTO JONES Health Plan Information #: 1 Payer: [facility] Payer Identifier: MARIE Member Number: [id number] Group Number: MARIE Subscriber Identifier: [id number] Relationship to Subscriber: self Coverage Type: Medicaid (Managed Care) Coverage Verification Date: NA Telecom: NA Address: NA
--- OUTSIDE RECORDS SUMMARY | 2025-11-02 12:54 | XMS_ITS | Encounter Summary ---
Author Organization [facility] Address [address] [place] [address] Phone Care Team Providers Care Body Cleaner Name Role Phone Emmanuel Mccallum MD Unavailable [phone] Emmanuel Mccallum MD Primary Care Provider [phone] Encounter Details Date Type Department Care Team (Late st Contact Info) Description 03/13/2023 Telephone [facility] [address] [address] Christiana Huff MD [address] [address] [email or web address] Social History Tobacco Use [...] on filedocumented in this encounter Care Teams Body Cleaner Relationship Specialty Start Date End Date Emmanuel Mccallum MD [address] [place] [id number] PCP - General 07/31/19 Emmanuel Mccallum MD [address] [place] [id number] Internal Medicine 07/07/19 documented as of this encounter Additional Source Comments The information contained in this document represents components of the legal health record. It is not the complete legal health record.[facility]
--- OUTSIDE RECORDS SUMMARY | 2025-11-02 12:55 | XMS_ITS | Patient Health Record ---
Author Organization [facility] Address [address] [place] [address] Care Team Providers Care Snowsport Instructor Name Role Phone IMELDA RENNER Unavailable [phone] JASSI TRIPP Unavailable [phone] Allergies Allergen (clinical drug ingredient) Drug/Non Drug Allergy documented on EMR Reaction Allergy Type Onset Date Status morphine Morphine anaphylaxis Drug Allergy Activ e Reason For Referral No Information Medications Medication SIG (Take, Route, Frequency, Duration) Notes Start Date End Date Status Wegovy 0.25 MG/0.5ML Solution Auto-injector 0.25mg Subcutaneous weekly; Duration: 30 days Not-Ta alissa Famotidine 40 MG Tablet as directed Orally Not-Taking Esomeprazole Magnesium 20 MG Capsule Delayed Release 1 capsule 1/2 to 1 hour before morning meal Orally Once a day Active Linzess 290 MCG Capsule [address] 30 minutes before the first meal of the day on an empty stomach Orally Once a day Active traMADol HCl 50 MG Tablet 1 tablet as needed Orally Once a day Active Aspirin 81 81 MG Tablet Delayed Release 1 tablet Orally Once a day Active Zepbound 2.5 MG/0.5ML Solution Auto-injector INJECT 2.5 MG SUBCUTANEOUSLY ONCE A WEEK; Duration: 56 Active Topiramate 100 MG Tablet 1 tablet Orally Once a day Active Venlafaxine HCl 75 MG Tablet 1 tablet with food Orally Once a day Active Social History Section Notes: Pt denies havintg any concerns with current iving situation denies tobacco use, alcohol use and recreational drug use. Pt denies havintg any concerns with current iving situation denies tobacco use, alcohol use and recreational drug use. Pt denies havintg any concerns with current iving situation denies tobacco use, alcohol use and recreational drug use. Pt denies havintg any concerns with current iving situation denies tobacco use, alcohol use and recreational drug use. Pt denies havintg any concerns with current iving situation denies tobacco use, alcohol use and recreational drug use. Pt denies havintg any concerns with current iving situation denies tobacco use, alcohol use and recreational drug use. Pt denies havintg any concerns with current iving situation denies tobacco use, alcohol use and recreational drug use. Pt denies havintg any concerns with current iving situation denies tobacco use, alcohol use and recreational drug use. Problems Problem Type SNOMED Code ICD Code Onset Dates Problem Status W/U Status Risk Notes Problem Obesity due to exces s calories (476904059) Other obesity due to excess calories (E66.09) Active confirmed Problem Overweight (436513298) Overweigh t (E66.3) Active confirmed Problem Migraine (24843886) Migraine wit hout status migrainosus, not intractable, unspecified migraine type (G43.909) Active confirmed Problem Hyperlipidemia (83981189) Other hyperlipidemia (E78.49) Active confirmed Problem Body mass index 30+ - obesity (626093505) Body mass index [BMI] 30.0-30.9, adult (Z68.30) Active confirmed Problem Mixed anxiety and depressive disorder (046218563) Depression with anxiety (F41.8) Active confirmed Problem Gastroesophageal reflux disease (103405394) GERD without esophagitis (K21.9) Active confirmed Problem Pure hypercholesterolemia (554257936) Elevated LDL cholesterol level (E78.00) Active confirmed Problem Old myocardial infarction (3336111) Past myocardial infarction (I25.2) Active confirmed Problem Episodic migraine (779436911432905) Episodic migraine (G43.909) Active confirmed Vital Signs Heart Rate 99 /min 06/26/2025 Oximetry 97 % 06/26/2025 Blood pressure diastolic 60 mm Hg 06/26/2025 Height 64 in 06/26/2025 Blood pressure systolic 90 mm Hg 06/26/2025 Weight 131.8 lbs 06/26/2025 BMI 22.62 kg/m2 06/26/2025 Encounters Encounter Location Date Provider Diagnosis [facility] [address] [place] [address] 03/20/2025 IMELDA BORHOT Other hyperlipidemia E78.49 ; Migraine without status migrainosus, not intractable, unspecified migraine type G43.909 ; Past myocardial infarction I25.2 ; Dietary counseling and surveillance Z71.3 and BMI 21.0-21.9, adult Z68.21 [facility] [address] [address] 11/21/2024 IMELDA BORHOT Other hyperlipidemia E78.49 ; Migraine without status migrainosus, not intractable, unspecified migraine type G43.909 ; Past myocardial infarction I25.2 ; Dietary counseling and surveillance Z71.3 and BMI 23.0-23.9, adult Z68.23 [facility] [address] [address] 02/06/2025 IMELDA BORHOT Other hyperlipidemia E78.49 ; Migraine without status migrainosus, not intractable, unspecified migraine type G43.909 ; Past myocardial infarction I25.2 ; Dietary counseling and surveillance Z71.3 and BMI 21.0-21.9, adult Z68.21 [facility] [address] [address] 05/15/2025 IMELDA BORHOT Other hyperlipidemia E78.49 ; Migraine without status migrainosus, not intractable, unspecified migraine type G43.909 ; Past myocardial infarction I25.2 ; Dietary counseling and surveillance Z71.3 ; BMI 21.0-21.9, adult Z68.21 and Encounter for examination of blood pressure without abnormal findings Z01.30 [facility] [address] [address] 06/26/2025 IMELDA BORHOT Other hyperlipidemia E78.49 ; Migraine without status migrainosus, not intractable, unspecified migraine type G43.909 ; Past myocardial infarction I25.2 ; Dietary counseling and surveillance Z71.3 ; BMI 21.0-21.9, adult Z68.21 and Encounter for examination of blood pressure without abnormal findings Z01.30 [facility] [address] [address] 11/11/2024 IMELDA BORHOT [facility] [address] [address] 11/14/2024 JASSI TRIPP [facility] [address] [facility] [address] [place] [address] 01/05/2025 IMELDA RENNER [facility] [address] 299 [facility] [address] [place] [address] 01/06/2025 IMELDA RENNER [facility] [address] [facility] [address] [place] [address] 03/23/2025 IMELDA RENNER [facility] [address] [facility] [address] [place] [address] 05/15/2025 IMELDA RENNER [facility] [address] [facility] [address] [place] [address] 08/04/2025 IMELDA RENNER Assessments Encounter Date Diagnosis (ICD Code) Assessment Notes Treatment Notes Treatment Clinical Notes Section Notes 11/21/2024 Other hyperlipidemia (ICD-10 - E78.49) #Weight [...] minimum of 6 months The most recent [place] [employer]ocrinologists and [place] [employer] guidelines recommend patients who [...] software and direct typing Please excuse inadvertent lehr attendant or typing errors, or uncorrected word substitutions Although every attempt has been made by the provider to proofread this document, occasional misspellings and typographical errors may still be present Due to the previous pandemic, and the use of personal protective equipment (PPE) This may decrease voice recognition accuracy Inadvertent lehr attendant errors may occur 02/06/2025 Other hyperlipidemia (ICD-10 [...] software and direct typing Please excuse inadvertent lehr attendant or typing errors, or uncorrected word substitutions Although every attempt has been made by the provider to proofread this document, occasional misspellings and typographical errors may still be present Due to the previous pandemic, and the use of personal protective equipment (PPE) This may decrease voice recognition accuracy Inadvertent lehr attendant errors may occur 03/20/2025 Other hyperlipidemia (ICD-10 [...] software and direct typing Please excuse inadvertent lehr attendant or typing errors, or uncorrected word substitutions Although every attempt has been made by the provider to proofread this document, occasional misspellings and typographical errors may still be present Due to the previous pandemic, and the use of personal protective equipment (PPE) This may decrease voice recognition accuracy Inadvertent lehr attendant errors may occur 05/15/2025 Other hyperlipidemia (ICD-10 [...] software and direct typing Please excuse inadvertent lehr attendant or typing errors, or uncorrected word substitutions Although every attempt has been made by the provider to proofread this document, occasional misspellings and typographical errors may still be present Due to the previous pandemic, and the use of personal protective equipment (PPE) This may decrease voice recognition accuracy Inadvertent lehr attendant errors may occur 06/26/2025 Other hyperlipidemia (ICD-10 [...] software and direct typing Please excuse inadvertent lehr attendant or typing errors, or uncorrected word substitutions Although every attempt has been made by the provider to proofread this document, occasional misspellings and typographical errors may still be present Due to the previous pandemic, and the use of personal protective equipment (PPE) This may decrease voice recognition accuracy Inadvertent lehr attendant errors may occur 06/26/2025 Migraine without status [...] software and direct typing Please excuse inadvertent lehr attendant or typing errors, or uncorrected word substitutions Although every attempt has been made by the provider to proofread this document, occasional misspellings and typographical errors may still be present Due to the previous pandemic, and the use of personal protective equipment (PPE) This may decrease voice recognition accuracy Inadvertent lehr attendant errors may occur 05/15/2025 Migraine without status [...] software and direct typing Please excuse inadvertent lehr attendant or typing errors, or uncorrected word substitutions Although every attempt has been made by the provider to proofread this document, occasional misspellings and typographical errors may still be present Due to the previous pandemic, and the use of personal protective equipment (PPE) This may decrease voice recognition accuracy Inadvertent lehr attendant errors may occur 02/06/2025 Migraine without status [...] software and direct typing Please excuse inadvertent lehr attendant or typing errors, or uncorrected word substitutions Although every attempt has been made by the provider to proofread this document, occasional misspellings and typographical errors may still be present Due to the previous pandemic, and the use of personal protective equipment (PPE) This may decrease voice recognition accuracy Inadvertent lehr attendant errors may occur 03/20/2025 Migraine without status [...] software and direct typing Please excuse inadvertent lehr attendant or typing errors, or uncorrected word substitutions Although every attempt has been made by the provider to proofread this document, occasional misspellings and typographical errors may still be present Due to the previous pandemic, and the use of personal protective equipment (PPE) This may decrease voice recognition accuracy Inadvertent lehr attendant errors may occur 11/21/2024 Migraine without status [...] minimum of 6 months The most recent [place] [employer]ocrinologists and [place] [employer] guidelines recommend patients who [...] software and direct typing Please excuse inadvertent lehr attendant or typing errors, or uncorrected word substitutions Although every attempt has been made by the provider to proofread this document, occasional misspellings and typographical errors may still be present Due to the previous pandemic, and the use of personal protective equipment (PPE) This may decrease voice recognition accuracy Inadvertent lehr attendant errors may occur 11/21/2024 Past myocardial infarction [...] minimum of 6 months The most recent [place] [employer] endocrinologists and [place] [employer] guidelines recommend patients who [...] software and direct typing Please excuse inadvertent lehr attendant or typing errors, or uncorrected word substitutions Although every attempt has been made by the provider to proofread this document, occasional misspellings and typographical errors may still be present Due to the previous pandemic, and the use of personal protective equipment (PPE) This may decrease voice recognition accuracy Inadvertent lehr attendant errors may occur 02/06/2025 Past myocardial infarction [...] software and direct typing Please excuse inadvertent lehr attendant or typing errors, or uncorrected word substitutions Although every attempt has been made by the provider to proofread this document, occasional misspellings and typographical errors may still be present Due to the previous pandemic, and the use of personal protective equipment (PPE) This may decrease voice recognition accuracy Inadvertent lehr attendant errors may occur 03/20/2025 Past myocardial infarction [...] software and direct typing Please excuse inadvertent lehr attendant or typing errors, or uncorrected word substitutions Although every attempt has been made by the provider to proofread this document, occasional misspellings and typographical errors may still be present Due to the previous pandemic, and the use of personal protective equipment (PPE) This may decrease voice recognition accuracy Inadvertent lehr attendant errors may occur 05/15/2025 Past myocardial infarction [...] software and direct typing Please excuse inadvertent lehr attendant or typing errors, or uncorrected word substitutions Although every attempt has been made by the provider to proofread this document, occasional misspellings and typographical errors may still be present Due to the previous pandemic, and the use of personal protective equipment (PPE) This may decrease voice recognition accuracy Inadvertent lehr attendant errors may occur 06/26/2025 Past myocardial infarction [...] software and direct typing Please excuse inadvertent lehr attendant or typing errors, or uncorrected word substitutions Although every attempt has been made by the provider to proofread this document, occasional misspellings and typographical errors may still be present Due to the previous pandemic, and the use of personal protective equipment (PPE) This may decrease voice recognition accuracy Inadvertent lehr attendant errors may occur 06/26/2025 Dietary counseling and [...] software and direct typing Please excuse inadvertent lehr attendant or typing errors, or uncorrected word substitutions Although every attempt has been made by the provider to proofread this document, occasional misspellings and typographical errors may still be present Due to the previous pandemic, and the use of personal protective equipment (PPE) This may decrease voice recognition accuracy Inadvertent lehr attendant errors may occur 05/15/2025 Dietary counseling and [...] software and direct typing Please excuse inadvertent lehr attendant or typing errors, or uncorrected word substitutions Although every attempt has been made by the provider to proofread this document, occasional misspellings and typographical errors may still be present Due to the previous pandemic, and the use of personal protective equipment (PPE) This may decrease voice recognition accuracy Inadvertent lehr attendant errors may occur 03/20/2025 Dietary counseling and [...] software and direct typing Please excuse inadvertent lehr attendant or typing errors, or uncorrected word substitutions Although every attempt has been made by the provider to proofread this document, occasional misspellings and typographical errors may still be present Due to the previous pandemic, and the use of personal protective equipment (PPE) This may decrease voice recognition accuracy Inadvertent lehr attendant errors may occur 02/06/2025 Dietary counseling and [...] software and direct typing Please excuse inadvertent lehr attendant or typing errors, or uncorrected word substitutions Although every attempt has been made by the provider to proofread this document, occasional misspellings and typographical errors may still be present Due to the previous pandemic, and the use of personal protective equipment (PPE) This may decrease voice recognition accuracy Inadvertent lehr attendant errors may occur 11/21/2024 Dietary counseling and surveillance (ICD-10 - [...] minimum of 6 months The most recent [place] [employer] endocrinologists and [place] [employer] guidelines recommend patients who [...] software and direct typing Please excuse inadvertent lehr attendant or typing errors, or uncorrected word substitutions Although every attempt has been made by the provider to proofread this document, occasional misspellings and typographical errors may still be present Due to the previous pandemic, and the use of personal protective equipment (PPE) This may decrease voice recognition accuracy Inadvertent lehr attendant errors may occur 11/21/2024 BMI 23.0-23.9, adult [...] minimum of 6 months The most recent [place] [employer] clinical endocrinologists and [place] [employer] guidelines recommend patients who [...] software and direct typing Please excuse inadvertent lehr attendant or typing errors, or uncorrected word substitutions Although every attempt has been made by the provider to proofread this document, occasional misspellings and typographical errors may still be present Due to the previous pandemic, and the use of personal protective equipment (PPE) This may decrease voice recognition accuracy Inadvertent lehr attendant errors may occur 02/06/2025 BMI 21.0-21.9, adult [...] software and direct typing Please excuse inadvertent lehr attendant or typing errors, or uncorrected word substitutions Although every attempt has been made by the provider to proofread this document, occasional misspellings and typographical errors may still be present Due to the previous pandemic, and the use of personal protective equipment (PPE) This may decrease voice recognition accuracy Inadvertent lehr attendant errors may occur 03/20/2025 BMI 21.0-21.9, adult [...] software and direct typing Please excuse inadvertent lehr attendant or typing errors, or uncorrected word substitutions Although every attempt has been made by the provider to proofread this document, occasional misspellings and typographical errors may still be present Due to the previous pandemic, and the use of personal protective equipment (PPE) This may decrease voice recognition accuracy Inadvertent lehr attendant errors may occur 05/15/2025 BMI 21.0-21.9, adult [...] software and direct typing Please excuse inadvertent lehr attendant or typing errors, or uncorrected word substitutions Although every attempt has been made by the provider to proofread this document, occasional misspellings and typographical errors may still be present Due to the previous pandemic, and the use of personal protective equipment (PPE) This may decrease voice recognition accuracy Inadvertent lehr attendant errors may occur 06/26/2025 BMI 21.0-21.9, adult [...] software and direct typing Please excuse inadvertent lehr attendant or typing errors, or uncorrected word substitutions Although every attempt has been made by the provider to proofread this document, occasional misspellings and typographical errors may still be present Due to the previous pandemic, and the use of personal protective equipment (PPE) This may decrease voice recognition accuracy Inadvertent lehr attendant errors may occur 06/26/2025 Encounter for examination [...] software and direct typing Please excuse inadvertent lehr attendant or typing errors, or uncorrected word substitutions Although every attempt has been made by the provider to proofread this document, occasional misspellings and typographical errors may still be present Due to the previous pandemic, and the use of personal protective equipment (PPE) This may decrease voice recognition accuracy Inadvertent lehr attendant errors may occur 05/15/2025 Encounter for examination [...] software and direct typing Please excuse inadvertent lehr attendant or typing errors, or uncorrected word substitutions Although every attempt has been made by the provider to proofread this document, occasional misspellings and typographical errors may still be present Due to the previous pandemic, and the use of personal protective equipment (PPE) This may decrease voice recognition accuracy Inadvertent lehr attendant errors may occur Plan Of Treatment No Information Insurance Providers Payer Name Payer Address Payer Phone Subscriber Number Group Number Insured Name Patient Relationship to Insured Coverage Start Date Coverage End Date [facility] [id number] [id number] Kelsey Bhagat Self - patient is the insured Medical (General) History Medical History History ICD Code asthma heart attack weight gain/loss migraines Surgical History Surgery Date(Month/Year) section 01/2007
--- OUTSIDE RECORDS SUMMARY | 2025-11-02 12:55 | XMS_ITS | Encounter Summary ---
Author Organization [facility] Address [address] [place] [id number] Phone Care Team Providers Care Rn Lactation Name Role Phone Fay Osorio MD Primary Care Provider [phone] Emmanuel Mccallum MD Unavailable [phone] Emmanuel Mccallum MD Primary Care Provider [phone] Encounter Details Date Type Department Care Team (Late st Contact Info) Description 05/17/2017 Procedure [facility] [address] [place] [address] Social History Tobacco Use Types Packs/Day Years [...] on filedocumented in this encounter Care Teams Rn Lactation Relationship Specialty Start Date End Date Fay Osorio MD [address] [place] [address] PCP - General Internal Medicine 01/06/16 07/14/19 Emmanuel Mccallum MD [address] [place] [id number] PCP - General 07/31/19 Emmanuel Mccallum MD [address] [place] [phone] Internal Medicine 07/07/19 documented as of this encounter Additional Source Comments The information contained in this document represents components of the legal health record. It is not the complete legal health record.[facility]
--- OUTSIDE RECORDS SUMMARY | 2025-11-02 12:55 | XMS_ITS | Clinical Summary ---
Author Organization [facility] Address [address] [place] [id number] Phone Care Team Providers Care Skirt Trimmer Name Role Phone Emmanuel Mccallum MD Unavailable [phone] Emmanuel Mccallum MD Primary Care Provider [phone] Allergies Active Allergy Reactions Criticality Noted Date [...] FOBT 2024 SIGMOIDOSCOPY 2024 VIRTUAL COLONOSCOPY 2024 INFLUENZA VACCINE (#1) 2025 , 07/26/2020, 08/07/2019, Additional history exists COVID-19 VACCINE ( season) 2025 12/11/2020, 12/11/2020 PNEUMOCOCCAL VACCINES (0-49 years) Aged Out 07/08/2014 [...] Devices Not on file Insurance Care Teams Skirt Trimmer Relationship Specialty Start Date End Date Emmanuel Mccallum MD [address] [place] [id number] PCP - General 07/31/19 Emmanuel Mccallum MD [address] [place] [id number] Internal Medicine 07/07/19 Additional Source Comments The information contained in this document represents components of the legal health record. It is not the complete legal health record.[facility]
--- OUTSIDE RECORDS SUMMARY | 2025-11-02 12:55 | XMS_ITS | Encounter Summary ---
Author Organization [facility] Address [address] [place] [id number] Phone Care Team Providers Care Manager Internet Name Role Phone Fay Osorio MD Primary Care Provider [phone] Emmanuel Mccallum MD Unavailable [phone] Emmanuel Mccallum MD Primary Care Provider [phone] Encounter Details Date Type Department Care Team (Late st Contact Info) Description 05/11/2017 Procedure [facility] [address] [place] [address] Social History Tobacco Use Types Packs/Day Years [...] on filedocumented in this encounter Care Teams Manager Internet Relationship Specialty Start Date End Date Fay Osorio MD [address] [place] [id number] PCP - General Internal Medicine 01/06/16 07/14/19 Emmanuel Mccallum MD [address] [place] [id number] PCP - General 07/31/19 Emmanuel Mccallum MD [address] [place] [id number] Internal Medicine 07/07/19 documented as of this encounter Additional Source Comments The information contained in this document represents components of the legal health record. It is not the complete legal health record.[facility]
[2025-11-02 14:29] LABS: Anion Gap 11 (12-20); Blood Urea Nitrogen 19 mg/dL (9-16); Calcium 9.7 mg/dL (8.4-10.2); Carbon Dioxide 21 mmol/L (22-29); Chloride 116 mmol/L (96-108); Estimated Glomerular Filt Rate > 60; Magnesium 2.2 mg/dL (1.6-2.6); Potassium 4.1 mmol/L (3.3-5.1); Sodium 144 mmol/L (135-145); Uric Acid 3.0 mg/dL (2.4-5.7)
[2025-11-02 14:51] LABS: Parathyroid Hormone Intact 69.2 pg/mL (8.7-77.1)
== END 2025-11-02 11:04 | disposition home or self-care (01) ==
LOC: HO.HMGCLDS 11:03
PROVIDERS: PCP Internal Medicine; Visit Provider Nurse Practitioner Family
DX: N20.0 Calculus of kidney (principal)
CPT/HCPCS: 36415; 80048; 82306; 83735; 83970; 84100; 84550